=== PATIENT | female | born 1985 | race Caucasian/White ===

== ENCOUNTER 2016-09-15 13:08 | Emergency (ER) | payer OTHER ==
[2016-09-15] MEDS ORDERED: SODIUM CHLORIDE 0.9% 1,000 ML IV STA (13:32)
[2016-09-15] MEDS ORDERED: IPRATROPIUM-ALBUTEROL 3 ML NEB INHALATION STA (13:32)
[2016-09-15] MEDS ORDERED: methylPREDNISolone SOD SUCCI 125 MG/2 ML VIAL IV STA (13:32)
[2016-09-15] MEDS ORDERED: RX INFO: IV CONTRAST WAS GIVEN 1 EACH MISC MISCELLANE PRN (13:33)
--- NOTE | 2016-09-15 13:35 | ED ---
General Adult HPI - General Chief complaint: Shortness of Breath Stated complaint: ALMA Time Seen by Provider: 09/15/16 13:28 Source: patient, RN notes reviewed Mode of arrival: wheelchair Limitations: no limitations - History of Present Illness Initial comments: Patient is a pleasant 31-year-old female presenting to the emergency department with difficulty in breathing. Onset of symptoms was just a couple of days ago. Patient had similar symptoms several weeks ago and was admitted to the hospital for a couple of days. Patient has occasional cough. Patient states her hands feel tingly. Patient did have a questionable syncopal episode yesterday. Patient denies significant injury. No fevers. No history of chronic lung problems. - Related Data Home Medications Medication Instructions Recorded Confirmed Acetaminophen Tab [Tylenol Tab] 325 - 650 mg PO Q6H PRN 09/15/16 09/15/16 Ibuprofen [Motrin] 200 - 400 mg PO Q6HR PRN 09/15/16 09/15/16 Naproxen Sodium [Aleve] 220 mg PO BID PRN 09/15/16 09/15/16 Previous Rx's Medication Instructions Recorded Albuterol Inhaler [Ventolin Hfa 2 puff INHALATION Q4HR PRN #1 09/15/16 Inhaler] inhaler predniSONE 20 mg PO BID #10 tab 09/15/16 Allergies Allergy/AdvReac Type Severity Reaction Status Date / Time No Known Allergies Allergy Verified 09/15/16 13:59 Review of Systems ROS Statement: Those systems with pertinent positive or pertinent negative responses have been documented in the HPI. ROS Other: All systems not noted in ROS Statement are negative. Constitutional: Denies: fever Eyes: Denies: eye pain ENT: Denies: ear pain Respiratory: Reports: dyspnea Cardiovascular: Denies: palpitations Endocrine: Denies: fatigue Gastrointestinal: Denies: abdominal pain Genitourinary: Denies: dysuria Musculoskeletal: Denies: arthralgia Skin: Denies: rash Neurological: Denies: weakness Past Medical History Past Medical History: No Reported History Additional Past Medical History / Comment(s): 4-5 bulging disc, back pain History of Any Multi-Drug Resistant Organisms: None Reported Additional Past Surgical History / Comment(s): right knee, ACL right Past Anesthesia/Blood Transfusion Reactions: No Reported Reaction Past Psychological History: Anxiety, Depression Smoking Status: Current every day smoker Past Alcohol Use History: Rare Past Drug Use History: Marijuana - Past Family History Mother Family Medical History: Cancer, Congestive Heart Failure (CHF) General Exam Limitations: no limitations General appearance: alert, in no apparent distress Head exam: Present: atraumatic Eye exam: Present: normal appearance, PERRL ENT exam: Present: normal oropharynx Neck exam: Present: normal inspection Respiratory exam: Present: rhonchi Cardiovascular Exam: Present: regular rate, normal rhythm GI/Abdominal exam: Present: soft. Absent: tenderness Extremities exam: Present: normal inspection. Absent: pedal edema, calf tenderness Back exam: Present: normal inspection Neurological exam: Present: alert Psychiatric exam: Present: normal affect, normal mood Skin exam: Absent: rash Course Vital Signs 09/15/16 09/15/16 09/15/16 13:21 13:32 13:45 Temperature 97.4 F L Pulse Rate 101 H 87 Respiratory 24 20 Rate Blood Pressure 113/73 O2 Sat by Pulse 100 Oximetry 09/15/16 09/15/16 13:52 14:24 Temperature 98.0 F Pulse Rate 94 80 Respiratory 20 Rate Blood Pressure 108/56 O2 Sat by Pulse 96 Oximetry EKG Findings - EKG Comments: EKG Findings:: Normal sinus rhythm and 94. MS 124. QRS 102. QT 84. QTC 480. Normal axis. High QRS voltage. No acute ST change. Medical Decision Making - Medical Decision Making Patient reexamined and resting comfortably in bed. Patient feels significantly improved following nebulizer treatment. Lung sounds have improved. Patient updated on results. Patient is made aware that although unlikely pulmonary embolism has not been completely excluded. Patient does request discharge. - Lab Data Result diagrams: 09/15/16 13:55 09/15/16 13:55 Lab Results 09/15/16 09/15/16 09/15/16 Range/Units 13:55 13:55 13:55 WBC 6.2 (3.8-10.6) k/uL RBC 4.54 (3.80-5.40) m/uL Hgb 14.6 D (11.4-16.0) gm/dL Hct 42.0 (34.0-46.0) % MCV 92.4 (80.0-100.0) fL MCH 32.2 (25.0-35.0) pg MCHC 34.9 (31.0-37.0) g/dL RDW 13.4 (11.5-15.5) % Plt Count 195 (150-450) k/uL Neutrophils % 62 % Lymphocytes % 29 % Monocytes % 5 % Eosinophils % 1 % Basophils % 1 % Neutrophils # 3.8 (1.3-7.7) k/uL Lymphocytes # 1.8 (1.0-4.8) k/uL Monocytes # 0.3 (0-1.0) k/uL Eosinophils # 0.1 (0-0.7) k/uL Basophils # 0.0 (0-0.2) k/uL PT (9.0-12.0) sec INR (<1.1) APTT (22.0-30.0) sec Sodium 146 H (137-145) mmol/L Potassium 3.2 L (3.5-5.1) mmol/L Chloride 111 H (98-107) mmol/L Carbon Dioxide 20 L (22-30) mmol/L Anion Gap 15 mmol/L BUN 8 (7-17) mg/dL Creatinine 0.76 (0.52-1.04) mg/dL Est GFR (MDRD) Af Amer >60 (>60 ml/min/1.73 sqM) Est GFR (MDRD) Non-Af >60 (>60 ml/min/1.73 sqM) Glucose 81 (74-99) mg/dL Calcium 9.8 (8.4-10.2) mg/dL Magnesium 2.1 (1.6-2.3) mg/dL Total Bilirubin 0.9 (0.2-1.3) mg/dL AST 18 (14-36) U/L ALT 24 (9-52) U/L Alkaline Phosphatase 61 (38-126) U/L Total Creatine Kinase 72 (30-135) U/L CK-MB (CK-2) 0.6 (0.0-2.4) ng/mL CK-MB (CK-2) Rel Index 0.8 Troponin I <0.012 (0.000-0.034) ng/mL NT-Pro-B Natriuret Pep pg/mL Total Protein 6.7 (6.3-8.2) g/dL Albumin 4.2 (3.5-5.0) g/dL 09/15/16 09/15/16 Range/Units 13:55 13:55 WBC (3.8-10.6) k/uL RBC (3.80-5.40) m/uL Hgb (11.4-16.0) gm/dL Hct (34.0-46.0) % MCV (80.0-100.0) fL MCH (25.0-35.0) pg MCHC (31.0-37.0) g/dL RDW (11.5-15.5) % Plt Count (150-450) k/uL Neutrophils % % Lymphocytes % % Monocytes % % Eosinophils % % Basophils % % Neutrophils # (1.3-7.7) k/uL Lymphocytes # (1.0-4.8) k/uL Monocytes # (0-1.0) k/uL Eosinophils # (0-0.7) k/uL Basophils # (0-0.2) k/uL PT 11.4 (9.0-12.0) sec INR 1.1 (<1.1) APTT 25.3 (22.0-30.0) sec Sodium (137-145) mmol/L Potassium (3.5-5.1) mmol/L Chloride (98-107) mmol/L Carbon Dioxide (22-30) mmol/L Anion Gap mmol/L BUN (7-17) mg/dL Creatinine (0.52-1.04) mg/dL Est GFR (MDRD) Af Amer (>60 ml/min/1.73 sqM) Est GFR (MDRD) Non-Af (>60 ml/min/1.73 sqM) Glucose (74-99) mg/dL Calcium (8.4-10.2) mg/dL Magnesium (1.6-2.3) mg/dL Total Bilirubin (0.2-1.3) mg/dL AST (14-36) U/L ALT (9-52) U/L Alkaline Phosphatase (38-126) U/L Total Creatine Kinase (30-135) U/L CK-MB (CK-2) (0.0-2.4) ng/mL CK-MB (CK-2) Rel Index Troponin I (0.000-0.034) ng/mL NT-Pro-B Natriuret Pep 238 pg/mL Total Protein (6.3-8.2) g/dL Albumin (3.5-5.0) g/dL - Radiology Data Radiology results: report reviewed (Computed tomography scan of the chest shows no pulling embolism to the segmental level. Distal branches are not optimally assessed. Mild diffuse bronchial wall thickening could represent bronchitis or chronic asthma.) Disposition Clinical Impression: Dyspnea Disposition: HOME SELF-CARE Condition: Stable Instructions: Asthma (ED), Bronchospasm (ED) Additional Instructions: Please follow-up with primary care physician tomorrow. Return for difficulty breathing, chest pain, fever, worsening symptoms or other concerns. Prescriptions: Albuterol Inhaler [Ventolin Hfa Inhaler] 2 puff INHALATION Q4HR PRN #1 inhaler PRN Reason: Dyspnea predniSONE 20 mg PO BID #10 tab Referrals: None,Stated [Primary Care Provider] - 1-2 days Jeni Casarez MD [STAFF PHYSICIAN] - 1-2 days Mariposa Morris MD [STAFF PHYSICIAN] - 1-2 days
[2016-09-15 14:13] LABS: Basophils % (A) 1 %; CH 32.8; CHCM 35.6; Eosinophils # (A) 0.1 k/uL (0-0.7); Eosinophils % (A) 1 %; HDW 2.51; Luc % (Auto) 2; Lymphocytes # (A) 1.8 k/uL (1.0-4.8); Lymphocytes % (A) 29 %; MCH 32.2 pg (25.0-35.0); MCHC 34.9 g/dL (31.0-37.0); MCV 92.4 fL (80.0-100.0); Mean Platelet Volume 6.8; Monocytes # (A) 0.3 k/uL (0-1.0); Monocytes % (A) 5 %; Neutrophils # (A) 3.8 k/uL (1.3-7.7); Neutrophils % (A) 62 %; RBC 4.54 m/uL (3.80-5.40); RDW 13.4 % (11.5-15.5); WBC 6.2 k/uL (3.8-10.6); WBC (Perox) 6.43
[2016-09-15 14:17] LABS: HGB 14.6 gm/dL (11.4-16.0)
[2016-09-15 14:23] LABS: INR 1.1 (<1.1); Partial Thromboplastin Time 25.3 sec (22.0-30.0); Prothrombin Time 11.4 sec (9.0-12.0)
[2016-09-15 14:26] LABS: ALT 24 U/L (9-52); AST 18 U/L (14-36); Alkaline Phosphatase 61 U/L (38-126); Anion Gap 15 mmol/L; Blood Urea Nitrogen 8 mg/dL (7-17); Calcium 9.8 mg/dL (8.4-10.2); Carbon Dioxide 20 mmol/L (22-30); Chloride 111 mmol/L (98-107); Glucose 81 mg/dL (74-99); Magnesium 2.1 mg/dL (1.6-2.3); Non-African American GFR(MDRD) >60 (>60 ml/min/1.73 sqM); Potassium 3.2 mmol/L (3.5-5.1); Sodium 146 mmol/L (137-145); Total Bilirubin 0.9 mg/dL (0.2-1.3); Total Protein 6.7 g/dL (6.3-8.2)
[2016-09-15 14:40] LABS: Creatine Kinase 72 U/L (30-135)
[2016-09-15 14:53] LABS: Creatine Kinase MB 0.6 ng/mL (0.0-2.4); Troponin I <0.012 ng/mL (0.000-0.034)
--- NOTE | 2016-09-15 15:15 | CT ---
EXAMINATION TYPE: CT angio chest DATE OF EXAM: 09/15/2016 2:53 PM COMPARISON: 08/07/2016 HISTORY: 31-year-old female difficulty in breathing CT DLP: 446 mGycm Automated exposure control for dose reduction was used. Technique: CT of the chest for pulmonary embolism performed with with IV Contrast, patient injected w ith 100 ml mL of Omnipaque 350. Coronal and sagittal MIP reconstructions performed. FINDINGS: The heart is normal size without pericardial effusion. Aorta is normal caliber with conventional branching anatomy. Satisfactory opacification of the pulmonary arterial system. There is mild respiratory motion that ca uses limitation in assessment of the subsegmental and more distal arterial branches. Otherwise, no de finite pulmonary embolus is seen. No thoracic lymphadenopathy. Mild diffuse bronchial wall thickening is noted. No consolidation or pleural effusion. Respiratory mo tion limits assessment for small pulmonary emboli. Bones: No osseous destructive process. IMPRESSION: 1. Respiratory motion causing limitations. No pulmonary embolus seen to the segmental level. More dis alcira arterial branches are not optimally assessed. 2. Mild diffuse bronchial wall thickening could represent bronchitis or chronic asthma.
[2016-09-15] MEDS ORDERED: DEXAMETHASONE SOD PHOSPHATE 10 MG/ML 1 ML VIAL IV STA (16:07)
[2016-09-15 16:45] VITALS: BP 129/77; PULSE 77; RESP 18; TEMP 98.4
== END 2016-09-15 16:44 | disposition home or self-care (01) ==
LOC: EC 13:08
DX: R06.00 Dyspnea, unspecified (principal); F17.200 Nicotine dependence, unspecified, uncomplicated
CPT/HCPCS: 99285; 96374; 96361 ×2; 36415; 94640; 93005; 83880; 80053; 82550; 82553; 83735; 84484; 85025; 85610; 85730; 71275; J2930; Q9967

== ENCOUNTER 2017-11-23 12:27 | Emergency (ER) | payer OTHER ==
--- NOTE | 2017-11-23 14:32 | ED ---
Female Urogenital HPI - General Chief complaint: Urogenital Stated complaint: Urogenital Time Seen by Provider: 11/23/17 13:27 Source: patient, RN notes reviewed Mode of arrival: ambulatory Limitations: no limitations - History of Present Illness Initial comments: This is a 32-year-old female who presents to the emergency department with chief complaint of vaginal cyst. Patient states that she developed a cyst on the left side of her genitalia last evening and it was very uncomfortable. She states that the pain has progressively worsened this morning. Patient states that she does not have a primary care provider or an RESEARCH AND DEVELOPMENT SCIENTIST. Denies any active drainage. Denies any bleeding. Denies any history of trauma to the area. Denies fever, chills, chest pain, shortness of breath, abdominal pain, nausea or vomiting, constipation or diarrhea, dysuria or hematuria, numbness or tingling, headache or vision changes. Last Menstrual Period: 11/19/17 - Related Data Home Medications Medication Instructions Recorded Confirmed Acetaminophen Tab [Tylenol Tab] 1,000 mg PO Q6HR PRN 11/23/17 11/23/17 Ibuprofen [Motrin] 800 mg PO Q6H PRN 11/23/17 11/23/17 Previous Rx's Medication Instructions Recorded Hydrocodone/Acetaminophen [[place] 1 tab PO Q4HR PRN #12 tab 11/23/17 5-325] Ibuprofen 600 mg PO Q6HR #20 tablet 11/23/17 Sulfamethox-Tmp 800-160Mg [Bactrim 1 tab PO Q12HR #20 tab 11/23/17 DS 800-160 mg] Allergies Allergy/AdvReac Type Severity Reaction Status Date / Time No Known Allergies Allergy Verified 11/23/17 13:08 Review of Systems ROS Statement: Those systems with pertinent positive or pertinent negative responses have been documented in the HPI. ROS Other: All systems not noted in ROS Statement are negative. Past Medical History Past Medical History: No Reported History Additional Past Medical History / Comment(s): 4-5 bulging disc, back pain History of Any Multi-Drug Resistant Organisms: None Reported Past Surgical History: Orthopedic Surgery Additional Past Surgical History / Comment(s): right knee, ACL right Past Anesthesia/Blood Transfusion Reactions: No Reported Reaction Past Psychological History: Anxiety, Depression Smoking Status: Current every day smoker Past Alcohol Use History: None Reported Past Drug Use History: None Reported, Marijuana - Past Family History Mother Family Medical History: Cancer, Congestive Heart Failure (CHF) General Exam - General Exam Comments Initial Comments: General: Awake and alert, well-developed; in no apparent distress. HEENT: Head atraumatic, normocephalic. Pupils are equal, round and reactive to light. Extraocular movements intact. Oropharynx moist without erythema or exudate. Neck: Supple. Normal ROM. Cardiovascular: Regular rate and rhythm. No murmurs, rubs or gallops. Chest symmetrical. Respiratory: Lungs clear to auscultation bilaterally. No wheezes, rales or rhonchi. Normal respiratory effort with no use of accessory muscles. Musculoskeletal: Normal ROM, no tenderness bilateral upper and lower extremities. Ambulating normally. Skin: [place], warm and dry without rashes or lesions. Neurological: Alert and oriented x3. CN II-XII grossly intact. Speech is fluent and answers are appropriate. No focal neuro deficits. Psychiatric: Normal mood and affect. No overt signs of depression or anxiety noted. Limitations: no limitations External exam: Present: other (approximately 1.5cm in diameter bartholin cyst left labia majora) Course Vital Signs 11/23/17 12:56 Temperature 98.9 F Pulse Rate 95 Respiratory 18 Rate Blood Pressure 142/99 O2 Sat by Pulse 100 Oximetry Medical Decision Making - Medical Decision Making This is a 32-year-old female who presents to emergency department with chief complaint of vaginal cyst. Patient does have a Bartholin's gland cyst at left labia. I discussed the case with fellow physician catering assistant, Jones who also evaluated the patient. The cyst is not large enough to drain or insert a bulb. Patient will be started on pain medication, anti-inflammatories and antibiotics. Recommended warm baths and hot compresses. Patient will be given follow-up to a primary care provider as well as an RESEARCH AND DEVELOPMENT SCIENTIST. Patient's vital signs are stable and she is in no acute distress. She will be discharged home. She is in agreement with plan and voices understanding. All questions were answered. Disposition Clinical Impression: Cyst of Bartholin's gland duct Disposition: HOME SELF-CARE Condition: Good Instructions: Bartholin Cyst (ED) Additional Instructions: Please follow-up with Dr. Pagan, RESEARCH AND DEVELOPMENT SCIENTIST or Dr. Morris, primary care provider within 1-2 days. Please take warm baths and use hot compresses. Please take medications as prescribed. Please return to the emergency department if any concerns arise or you experience worsening in symptoms. Prescriptions: Hydrocodone/Acetaminophen [[place] 5-325] 1 tab PO Q4HR PRN #12 tab PRN Reason: Pain Ibuprofen 600 mg PO Q6HR #20 tablet Sulfamethox-Tmp 800-160Mg [Bactrim DS 800-160 mg] 1 tab PO Q12HR #20 tab Referrals: None,Stated [Primary Care Provider] - 1-2 days Amanda Pagan MD [STAFF PHYSICIAN] - 1-2 days Mariposa Morris MD [STAFF PHYSICIAN] - 1-2 days Time of Disposition: 14:31
[2017-11-23 14:40] VITALS: BP 126/84; PULSE 74; RESP 16; TEMP 97.5
== END 2017-11-23 14:38 | disposition home or self-care (01) ==
LOC: EC 12:27
DX: N75.0 Cyst of Bartholin's gland (principal); F17.200 Nicotine dependence, unspecified, uncomplicated
CPT/HCPCS: 99282

== ENCOUNTER 2017-11-25 09:17 | Emergency (ER) | payer OTHER ==
[2017-11-25 09:47] VITALS: RESP 18
--- NOTE | 2017-11-25 11:17 | ED ---
General Adult HPI - General Chief complaint: Urogenital Stated complaint: Cyst Source: patient, RN notes reviewed Mode of arrival: ambulatory Limitations: no limitations - History of Present Illness Initial comments: This is a 32-year-old female who presents emergency Department complaining of having a cyst on the labia. Patient states she was seen in emergency department a few days ago and since gotten severely worse even though she's on antibiotics. Patient states the areas become more swollen and more tender and she does not have a primary medical care doctor or a MOVEMENT EDUCATION SPECIALIST. Patient denies any fever chills patient denies any drainage of the area. - Related Data Home Medications Medication Instructions Recorded Confirmed Acetaminophen Tab [Tylenol Tab] 1,000 mg PO Q6HR PRN 11/23/17 11/25/17 Ibuprofen [Motrin] 800 mg PO Q6H PRN 11/23/17 11/25/17 Previous Rx's Medication Instructions Recorded Hydrocodone/Acetaminophen [[place] 1 tab PO Q4HR PRN #12 tab 11/23/17 5-325] Ibuprofen 600 mg PO Q6HR #20 tablet 11/23/17 Sulfamethox-Tmp 800-160Mg [Bactrim 1 tab PO Q12HR #20 tab 11/23/17 DS 800-160 mg] Hydrocodone/Acetaminophen [[place] 1 each PO Q4HR PRN #10 tab 11/25/17 5-325] Ibuprofen [Motrin] 600 mg PO Q6HR PRN #20 tab 11/25/17 Allergies Allergy/AdvReac Type Severity Reaction Status Date / Time No Known Allergies Allergy Verified 11/25/17 10:28 Review of Systems ROS Statement: Those systems with pertinent positive or pertinent negative responses have been documented in the HPI. ROS Other: All systems not noted in ROS Statement are negative. Past Medical History Past Medical History: No Reported History Additional Past Medical History / Comment(s): 4-5 bulging disc, back pain History of Any Multi-Drug Resistant Organisms: None Reported Past Surgical History: Orthopedic Surgery Additional Past Surgical History / Comment(s): right knee, ACL right Past Anesthesia/Blood Transfusion Reactions: No Reported Reaction Past Psychological History: Anxiety, Depression Smoking Status: Current every day smoker Past Alcohol Use History: None Reported Past Drug Use History: None Reported, Marijuana - Past Family History Mother Family Medical History: Cancer, Congestive Heart Failure (CHF) General Exam - General Exam Comments Initial Comments: GENERAL Patient is well-developed and well-nourished. Patient is in mild distress. EYES Patient's pupils are equal and round. Extraocular motion is intact SKIN Unremarkable NEURO The patient is alert and oriented 3 PYSCH Patient has normal interpersonal interactions. MUSCULOSKELETAL All 4 times and full range of motion. GENITALIA Patient has a Bartholin's cyst Limitations: no limitations Course Vital Signs 11/25/17 09:44 Temperature 98.6 F Pulse Rate 97 Respiratory 18 Rate Blood Pressure 130/91 O2 Sat by Pulse 100 Oximetry Procedures - Incision & Drainage Consent Obtained: verbal consent Time Out Performed?: Yes Site: vulva/vagina Anesthetic Used: lidocaine 1% I&D Cleaning Method: Betadine Scalpel Used: #15 I&D Drainage Obtained: Pus Culture Obtained?: Yes Complications: pain, bleeding Patient Tolerated Procedure: well Medical Decision Making - Lab Data Lab Results 11/25/17 Range/Units 11:18 Urine Color Yellow Urine Appearance Clear (Clear) Urine pH 6.5 (5.0-8.0) Ur Specific [place] 1.032 (1.001-1.035) Urine Protein 1+ H (Negative) Urine Glucose (UA) Negative (Negative) Urine Ketones Negative (Negative) Urine Blood Negative (Negative) Urine Nitrite Negative (Negative) Urine Bilirubin Negative (Negative) Urine Urobilinogen 2.0 (<2.0) mg/dL Ur Leukocyte Esterase Negative (Negative) Urine RBC <1 (0-5) /hpf Urine WBC 1 (0-5) /hpf Ur Squamous Epith Cells 7 H (0-4) /hpf Urine Mucus Rare H (None) /hpf Disposition Clinical Impression: Cyst of Bartholin's gland duct Disposition: HOME SELF-CARE Condition: Good Instructions: Incision and Drainage (ED) Prescriptions: Hydrocodone/Acetaminophen [[place] 5-325] 1 each PO Q4HR PRN #10 tab PRN Reason: Pain Ibuprofen [Motrin] 600 mg PO Q6HR PRN #20 tab PRN Reason: For pain Referrals: None,Stated [Primary Care Provider] - 1-2 days Sav Ervin MD [STAFF PHYSICIAN] - 1-2 days Time of Disposition: 12:08
[2017-11-25 11:51] LABS: Appearance,Urine Clear (Clear); Bilirubin,Urine Negative (Negative); Blood,Urine Negative (Negative); Color,Urine Yellow; Glucose,Urine (UA) Negative (Negative); Ketones,Urine Negative (Negative); Leukocyte Esterase,Urine Negative (Negative); Mucus,Urine Rare /hpf; Nitrite,Urine Negative (Negative); PH, Urine 6.5 (5.0-8.0); Protein,Urine 1+ (Negative); RBC,Urine <1 /hpf (0-5); Specific Gravity,Urine 1.032 (1.001-1.035); Squamous Epithelial Cell,Urine 7 /hpf (0-4); WBC,Urine 1 /hpf (0-5)
[2017-11-25] MEDS ORDERED: cefTRIAXone 1,000 MG VIAL (IM USE) IM STA (12:05)
[2017-11-25 12:28] VITALS: BP 132/67; PULSE 79; TEMP 98
[2017-11-26 16:24] LABS: C. trachomatis,PCR Negative (Neg,Equiv); Chlamydia trachomatis Source Urine; N. gonorrhoeae,PCR Negative (Neg,Equiv); Neisseria Source Urine
== END 2017-11-25 12:29 | disposition home or self-care (01) ==
LOC: EC 09:17
DX: N75.0 Cyst of Bartholin's gland (principal); F17.200 Nicotine dependence, unspecified, uncomplicated
CPT/HCPCS: 96372; 99283; 56405; 81001; 87491; 87591; J0696

== ENCOUNTER 2018-01-13 19:15 | Emergency (ER) | payer OTHER ==
[2018-01-13] MEDS ORDERED: diphenhydrAMINE 50 MG/ML 1 ML VIAL IVP STA (20:14)
[2018-01-13] MEDS ORDERED: SODIUM CHLORIDE 0.9% 1,000 ML IV STA (20:14)
[2018-01-13] MEDS ORDERED: METOCLOPRAMIDE 5 MG/ML 2 ML VIAL IVP STA (20:14)
[2018-01-13] MEDS ORDERED: KETOROLAC 30 MG/ML 1 ML VIAL IVP STA (20:14)
--- NOTE | 2018-01-13 20:16 | ED ---
General Adult HPI - General Chief complaint: Headache Stated complaint: migraine Time Seen by Provider: 01/13/18 20:08 Source: patient, RN notes reviewed Mode of arrival: ambulatory Limitations: no limitations - History of Present Illness Initial comments: Patient 32-year-old female significant past medical history for migraines, presented to the emergency room today with a chief complaint of migraine headache that started late last night. She states she struck medication at home with little relief. Patient does meet photosensitivity. She does admit to sensitivity to sounds. She states that she's had some nausea and vomiting. She states the headache is located all over. Describes it as pressure. She is only symptoms are consistent with migraine headaches that she's had in the past. Patient denies any recent fever, chills, shortness of breath, chest pain, back pain, numbness or tingling, dysuria or hematuria, constipation or diarrhea , or any other complaints. - Related Data Home Medications Medication Instructions Recorded Confirmed Butalbital/Aspirin/Caffeine 1 cap PO Q4HR PRN 01/13/18 01/13/18 [Fiorinal 50-325-40 MG] Hydrocodone/Acetaminophen [[place] 1 tab PO BID PRN 01/13/18 01/13/18 5-325] Multivitamins, Thera [Multivitamin 1 tab PO DAILY 01/13/18 01/13/18 (formulary)] Allergies Allergy/AdvReac Type Severity Reaction Status Date / Time No Known Allergies Allergy Verified 01/13/18 20:23 Review of Systems ROS Statement: Those systems with pertinent positive or pertinent negative responses have been documented in the HPI. ROS Other: All systems not noted in ROS Statement are negative. Past Medical History Past Medical History: No Reported History Additional Past Medical History / Comment(s): 4-5 bulging disc, back pain, migraines History of Any Multi-Drug Resistant Organisms: None Reported Past Surgical History: Orthopedic Surgery Additional Past Surgical History / Comment(s): right knee, ACL right Past Anesthesia/Blood Transfusion Reactions: No Reported Reaction Past Psychological History: Anxiety, Depression Smoking Status: Current every day smoker Past Alcohol Use History: None Reported Past Drug Use History: None Reported, Marijuana - Past Family History Mother Family Medical History: Cancer, Congestive Heart Failure (CHF) General Exam - General Exam Comments Initial Comments: General: The patient is awake and alert, in no distress, and does not appear acutely ill. Eye: Pupils are equal, round and reactive to light, extra-ocular movements are intact. No nystagmus. There is normal conjunctiva bilaterally. No signs of icterus. Ears, nose, mouth and throat: There are moist mucous membranes and no oral lesions. Neck: The neck is supple, there is no tenderness or JVD. Cardiovascular: There is a regular rate and rhythm. No murmur, rub or gallop is appreciated. Respiratory: Lungs are clear to auscultation, respirations are non-labored, breath sounds are equal. No wheezes, stridor, rales, or rhonchi. Musculoskeletal: Normal ROM, no tenderness. Strength 5/5. Sensation intact. Pulses equal bilaterally 2+. Neurological: A&O x 3. CN II-XII intact, There are no obvious motor or sensory deficits. Coordination appears grossly intact. Speech is normal. Skin: Skin is warm and dry and no rashes or lesions are noted. Psychiatric: Cooperative, appropriate mood & affect, normal judgment. Limitations: no limitations Course Vital Signs 01/13/18 19:57 Temperature 98.3 F Pulse Rate 85 Respiratory 18 Rate Blood Pressure 140/86 O2 Sat by Pulse 98 Oximetry Medical Decision Making - Medical Decision Making Patient reexamined at this time shows no signs of distress. Patient does admit that she's feeling better after medications of Reglan, Benadryl, Toradol here in emergency room. She states her headache is gone. Patient will be discharged home. Disposition Clinical Impression: Migraine Disposition: HOME SELF-CARE Condition: Good Instructions: Migraine Headache (ED) Additional Instructions: Please use ibuprofen for any rebound headaches. Please follow-up with family doctor in the next 2 days of symptoms have not improved. Please return to emergency room if the symptoms increase or worsen or for any other concerns. Is patient prescribed a controlled substance at d/c from ED?: No Referrals: None,Stated [Primary Care Provider] - 1-2 days Time of Disposition: 21:56
[2018-01-13 22:19] VITALS: BP 132/71; PULSE 69; RESP 16; TEMP 98.1
== END 2018-01-13 22:19 | disposition home or self-care (01) ==
LOC: EC 19:15
DX: G43.909 Migraine, unspecified, not intractable, without status migrainosus (principal); F17.200 Nicotine dependence, unspecified, uncomplicated
CPT/HCPCS: 99283; 96374; 96375 ×2; 96361; J1200; J2765; J1885

== ENCOUNTER 2018-03-04 08:55 | Emergency (ER) | payer OTHER ==
[2018-03-04 09:03] VITALS: RESP 18; TEMP 98.2
[2018-03-04 09:33] LABS: Basophils # (A) 0.1 k/uL (0-0.2); Basophils % (A) 1 %; Eosinophils # (A) 0.1 k/uL (0-0.7); Eosinophils % (A) 1 %; HCT 43.7 % (34.0-46.0); HGB 14.9 gm/dL (11.4-16.0); Lymphocytes # (A) 1.4 k/uL (1.0-4.8); Lymphocytes % (A) 20 %; MCH 31.4 pg (25.0-35.0); MCHC 34.1 g/dL (31.0-37.0); Monocytes # (A) 0.3 k/uL (0-1.0); Monocytes % (A) 5 %; Neutrophils # (A) 5.1 k/uL (1.3-7.7); Neutrophils % (A) 73 %; Platelet Count 209 k/uL (150-450); RBC 4.75 m/uL (3.80-5.40); RDW 12.8 % (11.5-15.5); WBC 7.1 k/uL (3.8-10.6)
[2018-03-04 09:45] LABS: Appearance,Urine Clear (Clear); Bilirubin,Urine Negative (Negative); Blood,Urine Small (Negative); Color,Urine Light Yellow; Glucose,Urine (UA) Negative (Negative); Ketones,Urine Negative (Negative); Leukocyte Esterase,Urine Negative (Negative); Mucus,Urine Rare /hpf; Nitrite,Urine Negative (Negative); PH, Urine 7.5 (5.0-8.0); Protein,Urine Negative (Negative); RBC,Urine 1 /hpf (0-5); Specific Gravity,Urine 1.005 (1.001-1.035); Squamous Epithelial Cell,Urine 1 /hpf (0-4); Urobilinogen,Urine <2.0 mg/dL (<2.0); WBC,Urine 1 /hpf (0-5)
[2018-03-04] MEDS ORDERED: ONDANSETRON 4 MG/2 ML VIAL IVP STA (09:51)
[2018-03-04] MEDS ORDERED: KETOROLAC 30 MG/ML 1 ML VIAL IVP STA (09:51)
[2018-03-04 09:52] LABS: ALT 25 U/L (9-52); AST 22 U/L (14-36); Albumin 4.6 g/dL (3.5-5.0); Alkaline Phosphatase 58 U/L (38-126); Amylase 58 U/L (30-110); Anion Gap 12 mmol/L; Blood Urea Nitrogen 3 mg/dL (7-17); Calcium 9.5 mg/dL (8.4-10.2); Carbon Dioxide 25 mmol/L (22-30); Chloride 105 mmol/L (98-107); Glucose 95 mg/dL (74-99); Lipase 38 U/L (23-300); Potassium 3.9 mmol/L (3.5-5.1); Sodium 142 mmol/L (137-145); Total Bilirubin 0.4 mg/dL (0.2-1.3); Total Protein 6.8 g/dL (6.3-8.2)
--- NOTE | 2018-03-04 10:44 | US ---
EXAMINATION TYPE: US gallbladder DATE OF EXAM: 03/04/2018 COMPARISON: NONE CLINICAL HISTORY: Pain. EXAM MEASUREMENTS: Liver Length: 16.2 cm Gallbladder Wall: 0.2 cm CBD: 0.3 cm Right Kidney: 9.8 x 4.4 x 5.6 cm Pancreas: not well delineated Liver: wnl Gallbladder: wnl Evidence for sonographic Ortega's sign: no CBD: wnl Right Kidney: No hydronephrosis or masses seen IMPRESSION: No sonographic evidence of cholelithiasis or acute cholecystitis. Poor visualization of t he pancreas.
[2018-03-04] MEDS ORDERED: MORPHINE SULFATE 2 MG/ML SYRINGE IVP STA (10:55)
--- NOTE | 2018-03-04 12:03 | ED ---
Abdominal Pain HPI - General Chief Complaint: Abdominal Pain Stated Complaint: abd pain Time Seen by Provider: 03/04/18 09:03 Source: patient, RN notes reviewed Mode of arrival: wheelchair Limitations: no limitations - History of Present Illness Initial Comments: This a 32-year-old female presents to the emergency department with chief complaint of abdominal pain, nausea. Patient states pain started in her midabdomen but has radiated to her right upper quadrant into her back. Patient states that she has no chest pain or shortness of breath. Denies any shoulder pain. Patient has had no prior abdominal surgeries. Denies any dysuria, hematuria or any chance . Patient had no diarrhea no constipation. She states nothing makes the pain feel better or worse at this time. - Related Data Home Medications Medication Instructions Recorded Confirmed Hydrocodone/Acetaminophen [[place] 1 tab PO BID PRN 01/13/18 03/04/18 5-325] Previous Rx's Medication Instructions Recorded Ibuprofen [Motrin] 600 mg PO Q8HR PRN #30 tab 03/04/18 Ondansetron Odt [Zofran Odt] 4 mg PO Q8HR PRN #10 tab 03/04/18 Allergies Allergy/AdvReac Type Severity Reaction Status Date / Time No Known Allergies Allergy Verified 03/04/18 09:35 Review of Systems ROS Statement: Those systems with pertinent positive or pertinent negative responses have been documented in the HPI. ROS Other: All systems not noted in ROS Statement are negative. Past Medical History Past Medical History: No Reported History Additional Past Medical History / Comment(s): 4-5 bulging disc, back pain, migraines History of Any Multi-Drug Resistant Organisms: None Reported Past Surgical History: Orthopedic Surgery Additional Past Surgical History / Comment(s): right knee, ACL right Past Anesthesia/Blood Transfusion Reactions: No Reported Reaction Past Psychological History: Anxiety, Depression Smoking Status: Current every day smoker Past Alcohol Use History: None Reported Past Drug Use History: None Reported, Marijuana - Past Family History Mother Family Medical History: Cancer, Congestive Heart Failure (CHF) General Exam Limitations: no limitations General appearance: alert, in no apparent distress Head exam: Present: atraumatic, normocephalic, normal inspection Neck exam: Present: normal inspection. Absent: tenderness, meningismus, lymphadenopathy Respiratory exam: Present: normal lung sounds bilaterally. Absent: respiratory distress, wheezes, rales, rhonchi, stridor Cardiovascular Exam: Present: regular rate, normal rhythm, normal heart sounds. Absent: systolic murmur, diastolic murmur, rubs, gallop, clicks GI/Abdominal exam: Present: soft, tenderness (Moderate right upper quadrant), normal bowel sounds. Absent: distended, guarding, rebound, rigid Back exam: Present: CVA tenderness (R). Absent: CVA tenderness (L) Neurological exam: Present: alert, oriented X3, CN II-XII intact Course Vital Signs 03/04/18 09:02 Temperature 98.2 F Pulse Rate 103 H Respiratory 18 Rate Blood Pressure 141/100 O2 Sat by Pulse 99 Oximetry Medical Decision Making - Medical Decision Making 32-year-old female presents for abdominal pain. Patient states pain started earlier this morning and is progressive right upper quadrant pain. Patient had lab work, ultrasound and CT which unremarkable. Patient will follow-up with on- call surgery return parameters discussed. - Lab Data Result diagrams: 03/04/18 09:24 03/04/18 09:24 Lab Results 03/04/18 03/04/18 03/04/18 Range/Units 09:24 09:24 09:24 WBC 7.1 (3.8-10.6) k/uL RBC 4.75 (3.80-5.40) m/uL Hgb 14.9 (11.4-16.0) gm/dL Hct 43.7 (34.0-46.0) % MCV 92.0 (80.0-100.0) fL MCH 31.4 (25.0-35.0) pg MCHC 34.1 (31.0-37.0) g/dL RDW 12.8 (11.5-15.5) % Plt Count 209 (150-450) k/uL Neutrophils % 73 % Lymphocytes % 20 % Monocytes % 5 % Eosinophils % 1 % Basophils % 1 % Neutrophils # 5.1 (1.3-7.7) k/uL Lymphocytes # 1.4 (1.0-4.8) k/uL Monocytes # 0.3 (0-1.0) k/uL Eosinophils # 0.1 (0-0.7) k/uL Basophils # 0.1 (0-0.2) k/uL Sodium 142 (137-145) mmol/L Potassium 3.9 (3.5-5.1) mmol/L Chloride 105 (98-107) mmol/L Carbon Dioxide 25 (22-30) mmol/L Anion Gap 12 mmol/L BUN 3 L (7-17) mg/dL Creatinine 0.77 (0.52-1.04) mg/dL Est GFR (CKD-EPI)AfAm >90 (>60 ml/min/1.73 sqM) Est GFR (CKD-EPI)NonAf >90 (>60 ml/min/1.73 sqM) Glucose 95 (74-99) mg/dL Calcium 9.5 (8.4-10.2) mg/dL Total Bilirubin 0.4 (0.2-1.3) mg/dL AST 22 (14-36) U/L ALT 25 (9-52) U/L Alkaline Phosphatase 58 (38-126) U/L Total Protein 6.8 (6.3-8.2) g/dL Albumin 4.6 (3.5-5.0) g/dL Amylase 58 (30-110) U/L Lipase 38 (23-300) U/L Urine Color Urine Appearance (Clear) Urine pH (5.0-8.0) Ur Specific [place] (1.001-1.035) Urine Protein (Negative) Urine Glucose (UA) (Negative) Urine Ketones (Negative) Urine Blood (Negative) Urine Nitrite (Negative) Urine Bilirubin (Negative) Urine Urobilinogen (<2.0) mg/dL Ur Leukocyte Esterase (Negative) Urine RBC (0-5) /hpf Urine WBC (0-5) /hpf Ur Squamous Epith Cells (0-4) /hpf Urine Mucus (None) /hpf Urine HCG, Qual Not Detected (Not Detectd) 03/04/18 Range/Units 09:24 WBC (3.8-10.6) k/uL RBC (3.80-5.40) m/uL Hgb (11.4-16.0) gm/dL Hct (34.0-46.0) % MCV (80.0-100.0) fL MCH (25.0-35.0) pg MCHC (31.0-37.0) g/dL RDW (11.5-15.5) % Plt Count (150-450) k/uL Neutrophils % % Lymphocytes % % Monocytes % % Eosinophils % % Basophils % % Neutrophils # (1.3-7.7) k/uL Lymphocytes # (1.0-4.8) k/uL Monocytes # (0-1.0) k/uL Eosinophils # (0-0.7) k/uL Basophils # (0-0.2) k/uL Sodium (137-145) mmol/L Potassium (3.5-5.1) mmol/L Chloride (98-107) mmol/L Carbon Dioxide (22-30) mmol/L Anion Gap mmol/L BUN (7-17) mg/dL Creatinine (0.52-1.04) mg/dL Est GFR (CKD-EPI)AfAm (>60 ml/min/1.73 sqM) Est GFR (CKD-EPI)NonAf (>60 ml/min/1.73 sqM) Glucose (74-99) mg/dL Calcium (8.4-10.2) mg/dL Total Bilirubin (0.2-1.3) mg/dL AST (14-36) U/L ALT (9-52) U/L Alkaline Phosphatase (38-126) U/L Total Protein (6.3-8.2) g/dL Albumin (3.5-5.0) g/dL Amylase (30-110) U/L Lipase (23-300) U/L Urine Color Light Yellow Urine Appearance Clear (Clear) Urine pH 7.5 (5.0-8.0) Ur Specific [place] 1.005 (1.001-1.035) Urine Protein Negative (Negative) Urine Glucose (UA) Negative (Negative) Urine Ketones Negative (Negative) Urine Blood Small H (Negative) Urine Nitrite Negative (Negative) Urine Bilirubin Negative (Negative) Urine Urobilinogen <2.0 (<2.0) mg/dL Ur Leukocyte Esterase Negative (Negative) Urine RBC 1 (0-5) /hpf Urine WBC 1 (0-5) /hpf Ur Squamous Epith Cells 1 (0-4) /hpf Urine Mucus Rare H (None) /hpf Urine HCG, Qual (Not Detectd) Disposition Clinical Impression: Abdominal pain Disposition: HOME SELF-CARE Condition: Stable Instructions: Abdominal Pain (ED) Additional Instructions: Please return to the Emergency Department if symptoms worsen or any other concerns. Prescriptions: Ibuprofen [Motrin] 600 mg PO Q8HR PRN #30 tab PRN Reason: Pain Ondansetron Odt [Zofran Odt] 4 mg PO Q8HR PRN #10 tab PRN Reason: Nausea Is patient prescribed a controlled substance at d/c from ED?: No Referrals: None,Stated [Primary Care Provider] - 1-2 days Kevin Thomas DO [Doctor of Osteopathic Medicine] - 1-2 days Time of Disposition: 12:27
--- NOTE | 2018-03-04 12:09 | CT ---
EXAMINATION TYPE: CT abdomen pelvis w con DATE OF EXAM: 03/04/2018 COMPARISON: NONE INDICATION: RUQ pain, radiating around back DLP: 931 mGycm, Automated exposure control for dose reduction was used. CONTRAST: 100 mL of Isovue 300. Study performed without Oral Contrast TECHNIQUE: Axial images were obtained from above the diaphragm to the pubic rami in the axial plane a t 5 mm thick sections. Reconstructed images are reviewed on the computer in the coronal plane. FINDINGS: Limited CT sections are obtained the lung bases. The lung bases are clear. CT ABDOMEN: Liver: Normal Spleen: Normal Pancreas: Normal Adrenal glands: The adrenal glands are normal. Gallbladder: Normal Kidneys: No masses are evident. No hydronephrosis is present. No cysts are present. Delayed images were obtained through the kidneys, which remain unremarkable. Aorta: Normal Inferior vena cava: Normal. CT PELVIS: Loops of bowel within the abdomen and pelvis are normal. Study is performed without oral contrast limiting the evaluation. Appendix: Normal as visualized. Urinary bladder: Normal. Genitourinary structures: Uterus is normal. Adnexal regions are clear. Minimal free fluid is in the p etsrada. This could be physiologic. Osseous structures: No suspicious lytic or sclerotic lesions. IMPRESSIONS: 1. Normal CT abdomen and pelvis 2. Normal appendix
[2018-03-04 12:44] VITALS: BP 148/97; PULSE 80
== END 2018-03-04 12:42 | disposition home or self-care (01) ==
LOC: EC 08:55
DX: R10.11 Right upper quadrant pain (principal); M54.9 Dorsalgia, unspecified; R11.0 Nausea; F17.200 Nicotine dependence, unspecified, uncomplicated
CPT/HCPCS: 36415; 80053; 82150; 83690; 85025; 81001; 81025; 76705; 74177; 99284; 96374; 96375 ×2; J2405; J1885; J2270; Q9967

== ENCOUNTER 2018-03-17 19:12 | Emergency (ER) | payer SELFPAY ==
[2018-03-17 19:24] VITALS: RESP 16
--- NOTE | 2018-03-17 20:03 | ED ---
General Adult HPI - General Chief complaint: Skin/Abscess/Foreign Body Stated complaint: Insect bite Time Seen by Provider: 03/17/18 19:25 Source: patient, RN notes reviewed Mode of arrival: ambulatory Limitations: no limitations - History of Present Illness Initial comments: 32-year-old female presents to the emergency department for a chief complaint of bug bite times one day. Patient states she noticed the bite this morning. Patient states it was a blister that has since popped. Patient states there was a red ring around the bug bite earlier in the day but that has since resolved. Patient denies any fevers or chills at home. Patient denies any abdominal pain, joint pain, myalgias, fatigue. Patient has no other complaints at this time including shortness of breath, chest pain, abdominal pain, nausea or vomiting, headache, or visual changes. - Related Data Home Medications Medication Instructions Recorded Confirmed Hydrocodone/Acetaminophen [[place] 1 tab PO BID PRN 01/13/18 03/04/18 5-325] Previous Rx's Medication Instructions Recorded Ibuprofen [Motrin] 600 mg PO Q8HR PRN #30 tab 03/04/18 Ondansetron Odt [Zofran Odt] 4 mg PO Q8HR PRN #10 tab 03/04/18 Amoxicillin 500 mg PO Q8H 14 Days #42 capsule 03/17/18 diphenhydrAMINE [Benadryl] 25 mg PO QID PRN #20 capsule 03/17/18 Allergies Allergy/AdvReac Type Severity Reaction Status Date / Time No Known Allergies Allergy Verified 03/17/18 19:23 Review of Systems ROS Statement: Those systems with pertinent positive or pertinent negative responses have been documented in the HPI. ROS Other: All systems not noted in ROS Statement are negative. Past Medical History Past Medical History: No Reported History Additional Past Medical History / Comment(s): 4-5 bulging disc, back pain, migraines History of Any Multi-Drug Resistant Organisms: None Reported Past Surgical History: Orthopedic Surgery Additional Past Surgical History / Comment(s): right knee, ACL right Past Anesthesia/Blood Transfusion Reactions: No Reported Reaction Past Psychological History: Anxiety, Depression Smoking Status: Current every day smoker Past Alcohol Use History: None Reported Past Drug Use History: None Reported, Marijuana - Past Family History Mother Family Medical History: Cancer, Congestive Heart Failure (CHF) General Exam Limitations: no limitations General appearance: alert, in no apparent distress Head exam: Present: atraumatic, normocephalic, normal inspection Eye exam: Present: normal appearance ENT exam: Present: normal exam, mucous membranes moist Neck exam: Present: normal inspection, full ROM. Absent: tenderness, meningismus, lymphadenopathy Respiratory exam: Present: normal lung sounds bilaterally. Absent: respiratory distress, wheezes, rales, rhonchi, stridor Cardiovascular Exam: Present: regular rate, normal rhythm, normal heart sounds. Absent: systolic murmur, diastolic murmur, rubs, gallop, clicks Skin exam: Present: other (There is a 0.5 cm x 0.5 cm vesicle noted on the left inner thigh. There is about a 1 L by 1 cm area of erythema surrounding the vesicle. It is not indurated, nontender and not warm to touch. No ringing visible at this time. No purulent drainage. No cellulitic changes.) Course Vital Signs 03/17/18 19:21 Temperature 99.1 F Pulse Rate 110 H Respiratory 16 Rate Blood Pressure 143/99 O2 Sat by Pulse 100 Oximetry Medical Decision Making - Medical Decision Making 32-year-old female presents to the emergency department for a chief complaint of bug bite to the left inner thigh. Patient noticed it this morning. Patient denies having seen checks on her. Patient states it had a red ring around it earlier. Denies fevers or other systemic symptoms. On exam patient has a 0.5 cm x 0.5 cm vesicle surrounded by 1 x 1 cm area of erythema. No cellulitic changes. Erythema is not indurated tender or warm to touch. No ring noted around the lesion at this time. However, patient states that earlier there was a ring around it. Discussed with patient the possibility of it being a tick bite. Patient agrees to take amoxicillin to prevent any developing Lyme disease. She will follow-up in one to 2 days with primary care. She will return to the emergency Department if she develops fevers or any other worsening symptoms. Disposition Clinical Impression: Bug bite Disposition: HOME SELF-CARE Condition: Good Instructions: Insect Bite or Sting (ED) Additional Instructions: Take amoxicillin as directed. Please take Benadryl as needed for rash. Please return to the emergency department if you have any worsening symptoms or fevers. Otherwise follow-up with primary care in 1-2 days. Prescriptions: Amoxicillin 500 mg PO Q8H 14 Days #42 capsule diphenhydrAMINE [Benadryl] 25 mg PO QID PRN #20 capsule PRN Reason: Rash Is patient prescribed a controlled substance at d/c from ED?: No Referrals: George Johnson MD [STAFF PHYSICIAN] - 1-2 days Time of Disposition: 20:01
[2018-03-17 20:49] VITALS: BP 133/79; PULSE 84; TEMP 97
== END 2018-03-17 20:15 | disposition home or self-care (01) ==
LOC: EC 19:12
DX: S70.362A Insect bite (nonvenomous), left thigh, initial encounter (principal); F17.200 Nicotine dependence, unspecified, uncomplicated; W57.XXXA Bitten or stung by nonvenomous insect and other nonvenomous arthropods, initial encounter
CPT/HCPCS: 99282

== ENCOUNTER 2018-03-21 04:30 | Emergency (ER) | payer SELFPAY ==
[2018-03-21] MEDS ORDERED: ACETAMINOPHEN TAB 500 MG TAB PO STA (04:46)
[2018-03-21] MEDS ORDERED: DEXAMETHASONE SOD PHOSPHATE 10 MG/ML 1 ML VIAL IM STA (04:46)
[2018-03-21] MEDS ORDERED: IBUPROFEN 800 MG TAB PO STA (04:46)
--- NOTE | 2018-03-21 04:50 | ED ---
General Adult HPI - General Chief complaint: ENT Stated complaint: Earache Time Seen by Provider: 03/21/18 04:32 Source: patient, RN notes reviewed, old records reviewed Mode of arrival: ambulatory Limitations: no limitations - History of Present Illness Initial comments: This is a 30-year-old female the ER for evaluation. Today patient does agree nausea right foot Swelling. Right ear pain. Patient is currently on amoxicillin for treatment of possible Lyme disease or prevention of eye disease secondary take bite. Patient denies any significant rash no fevers. No difficulty swallowing or trauma no change pain. No difficulty with vision. Patient has no significant medical history - Related Data Home Medications Medication Instructions Recorded Confirmed Hydrocodone/Acetaminophen [[place] 1 tab PO BID PRN 01/13/18 03/04/18 5-325] Previous Rx's Medication Instructions Recorded Ibuprofen [Motrin] 600 mg PO Q8HR PRN #30 tab 03/04/18 Ondansetron Odt [Zofran Odt] 4 mg PO Q8HR PRN #10 tab 03/04/18 Amoxicillin 500 mg PO Q8H 14 Days #42 capsule 03/17/18 diphenhydrAMINE [Benadryl] 25 mg PO QID PRN #20 capsule 03/17/18 Allergies Allergy/AdvReac Type Severity Reaction Status Date / Time No Known Allergies Allergy Verified 03/21/18 04:36 Review of Systems ROS Statement: Those systems with pertinent positive or pertinent negative responses have been documented in the HPI. ROS Other: All systems not noted in ROS Statement are negative. Past Medical History Past Medical History: No Reported History Additional Past Medical History / Comment(s): 4-5 bulging disc, back pain, migraines History of Any Multi-Drug Resistant Organisms: None Reported Past Surgical History: Orthopedic Surgery Additional Past Surgical History / Comment(s): right knee, ACL right Past Anesthesia/Blood Transfusion Reactions: No Reported Reaction Past Psychological History: Anxiety, Depression Smoking Status: Current every day smoker Past Alcohol Use History: None Reported Past Drug Use History: None Reported, Marijuana - Past Family History Mother Family Medical History: Cancer, Congestive Heart Failure (CHF) General Exam Limitations: no limitations General appearance: alert, in no apparent distress Head exam: Present: atraumatic, normocephalic, normal inspection Eye exam: Present: normal appearance, PERRL, EOMI. Absent: scleral icterus, conjunctival injection, periorbital swelling ENT exam: Present: normal exam, mucous membranes moist Neck exam: Present: normal inspection. Absent: tenderness, meningismus, lymphadenopathy Respiratory exam: Present: normal lung sounds bilaterally. Absent: respiratory distress, wheezes, rales, rhonchi, stridor Cardiovascular Exam: Present: regular rate, normal rhythm, normal heart sounds. Absent: systolic murmur, diastolic murmur, rubs, gallop, clicks GI/Abdominal exam: Present: soft, normal bowel sounds. Absent: distended, tenderness, guarding, rebound, rigid Extremities exam: Present: normal inspection, full ROM, normal capillary refill. Absent: tenderness, pedal edema, joint swelling, calf tenderness Back exam: Present: normal inspection Neurological exam: Present: alert, oriented X3, CN II-XII intact Psychiatric exam: Present: normal affect, normal mood Skin exam: Present: warm, dry, intact, normal color. Absent: rash Course Vital Signs 03/21/18 03/21/18 03/21/18 04:34 05:56 06:27 Temperature 98.1 F 98.7 F Pulse Rate 79 82 Respiratory 16 18 Rate Blood Pressure 144/99 144/84 O2 Sat by Pulse 98 99 Oximetry Medical Decision Making - Medical Decision Making 32 female ER for evaluation of right ear pain, right-sided facial pain and right sided ear pain Positive right-sided lymphadenopathy. No acute disease found. Patient will continue amoxicillin and be discharged home - Radiology Data Radiology results: report reviewed (CT soft tissue neck IAC negative), image reviewed Disposition Clinical Impression: Lymphadenopathy of right cervical region Disposition: HOME SELF-CARE Condition: Good Instructions: Lymphadenopathy (ED), Adenitis (ED) Is patient prescribed a controlled substance at d/c from ED?: No Referrals: None,Stated [Primary Care Provider] - 1-2 days
--- NOTE | 2018-03-21 05:18 | CT ---
EXAMINATION TYPE: CT soft tissue neck wo con DATE OF EXAM: 03/21/2018 HISTORY: Right side ear pain, jaw pain COMPARISON: None CT DLP: 324.90 mGycm. Automated Exposure Control for Dose Reduction was Utilized. TECHNIQUE: Multiple axial sections were obtained from the level of the aortic arch to the lateral delphine tricles with no contrast. FINDINGS: There is normal branching pattern of the great vessels on the aortic arch. There is no evidence of th yroid mass. Epiglottis is normal. Prevertebral soft tissues are not enlarged. There are a few anterio r and posterior triangle cervical lymph nodes measure up to 1 cm. I see no significant adenopathy. Ex am is limited by lack of contrast. The trachea appears normal. There is no evidence of a pharyngeal m ass. Soft tissues at the skull base appear normal. The tonsils do not appear enlarged. Adenoids do no t appear enlarged. Cervical spine is intact. IMPRESSION: Negative CT scan of the cervical soft tissues.
--- NOTE | 2018-03-21 05:21 | CT ---
EXAMINATION TYPE: CT iac wo con DATE OF EXAM: 03/21/2018 COMPARISON: None HISTORY: Right side ear pain CT DLP: 150.00mGycm Automated exposure control for dose reduction was used. FINDINGS: Images were obtained from the level of the bottom of the maxillary sinuses to the third delphine tricle with no contrast. There is fairly normal aeration of the paranasal sinuses. I see no bony destructive process. There is bilateral patency of the ostiomeatal complex. Orbital margins are intact. There is no evidence of or bital mass. The maxilla is intact. There is normal aeration of the temporal bones and mastoid air usha ls. There is normal appearance of the external auditory canals. There is normal aeration of the middl e ear cavity bilaterally. There is normal aeration of the epitympanic recess bilaterally. I see no fo jah bone destruction. Cochlea and semicircular canals are symmetric. The temporomandibular joints stewart ear normal. I see no focal bone destruction. There is no evidence of a mass at the skull base. Spheno id bone appears normal. IMPRESSION: Normal CT scan of the temporal bones. I do not see a cause for right side pain.
[2018-03-21 06:00] VITALS: BP 144/84; PULSE 82; RESP 18
[2018-03-21 06:29] VITALS: TEMP 98.7
== END 2018-03-21 06:27 | disposition home or self-care (01) ==
LOC: EC 04:30
DX: R59.0 Localized enlarged lymph nodes (principal); H92.01 Otalgia, right ear; M79.89 Other specified soft tissue disorders; R11.0 Nausea; F17.200 Nicotine dependence, unspecified, uncomplicated
CPT/HCPCS: 99284; 96372; 70490; 70480; J1100

== ENCOUNTER 2018-03-24 16:29 | Emergency (ER) | payer OTHER ==
[2018-03-24 16:40] VITALS: BP 162/99; PULSE 103; RESP 18; TEMP 98.3
[2018-03-24] MEDS ORDERED: KETOROLAC 30 MG/ML 1 ML VIAL IM STA (17:28)
[2018-03-24] MEDS ORDERED: carBAMazepine 200 MG TAB PO STA (17:28)
[2018-03-24] MEDS ORDERED: HYDROcodone/APAP 5-325MG 1 EACH TAB PO STA (17:28)
--- NOTE | 2018-03-24 17:31 | ED ---
ENT HPI - General Chief complaint: ENT Stated complaint: rt side jaw pain shooting into ear Time Seen by Provider: 03/24/18 17:05 Source: patient Mode of arrival: ambulatory Limitations: no limitations - History of Present Illness Initial comments: 32-year-old female patient presents to the emergency department today for evaluation of severe right-sided facial pain. Patient states the pain extends from her ear down her right jaw. Patient states that the pain started last night. Patient states it has been constant. States it is a very sharp pain. Patient states that she does have a cavity in her right lower molar however she does not think the pain is coming from this area. She denies any facial swelling. Denies any fevers or chills. Patient was seen and evaluated here for similar yet less severe pain on 03/21/2018. Should have CT scanning of the neck and ear due to evidence of lymphadenopathy which showed no acute abnormalities. Patient states that nothing she has tried to stop the pain. Denies any history of similar symptoms prior to the 8th. Patient was recently treated prophylactically for Lyme disease after a tick bite. Patient denies any recent rash, shortness breath, chest pain, abdominal pain, nausea, vomiting, diarrhea, constipation, back pain, numbness, tingling, dizziness, weakness, hematuria, dysuria, urinary urgency, urinary frequency, headache, visual changes , or any other complaints. - Related Data Home Medications Medication Instructions Recorded Confirmed Hydrocodone/Acetaminophen [[place] 1 tab PO BID PRN 01/13/18 03/24/18 5-325] Acetaminophen Tab [Tylenol Tab] 1,000 mg PO Q6HR PRN 03/24/18 03/24/18 Butalb/APAP/Caff 50-325-40Mg 1 tab PO Q4H PRN 03/24/18 03/24/18 [Fioricet 50-325-40] Naproxen 1,000 mg PO Q12H PRN 03/24/18 03/24/18 Previous Rx's Medication Instructions Recorded Ibuprofen [Motrin] 600 mg PO Q8HR PRN #30 tab 03/04/18 carBAMazepine [Carbatrol] 100 mg PO Q12HR #28 cap 03/24/18 Allergies Allergy/AdvReac Type Severity Reaction Status Date / Time No Known Allergies Allergy Verified 03/24/18 16:45 Review of Systems ROS Statement: Those systems with pertinent positive or pertinent negative responses have been documented in the HPI. ROS Other: All systems not noted in ROS Statement are negative. Past Medical History Past Medical History: No Reported History Additional Past Medical History / Comment(s): 4-5 bulging disc, back pain, migraines History of Any Multi-Drug Resistant Organisms: None Reported Past Surgical History: Orthopedic Surgery Additional Past Surgical History / Comment(s): right knee, ACL right Past Anesthesia/Blood Transfusion Reactions: No Reported Reaction Past Psychological History: Anxiety, Depression Smoking Status: Current every day smoker Past Alcohol Use History: None Reported Past Drug Use History: None Reported - Past Family History Mother Family Medical History: Cancer, Congestive Heart Failure (CHF) General Exam Limitations: no limitations General appearance: alert, in no apparent distress, other (This is a well- developed, well-nourished adult female patient in mild distress related to pain. Vital signs upon presentation are temperature 98.3F, pulse 103, respirations 18, blood pressure 162/99, pulse ox 100% on room air.) Eye exam: Present: normal appearance, PERRL, EOMI. Absent: scleral icterus, conjunctival injection, periorbital swelling ENT exam: Present: normal exam, normal oropharynx, mucous membranes moist, other (Patient does have dental caries noted to tooth #32. There is no surrounding gingival erythema or swelling. Tapping of the teeth to the right lower and right upper jaw does not reproduce the pain or make the pain worse. Patient is swallowing without difficulty. No trismus.) Neck exam: Present: normal inspection, full ROM. Absent: tenderness, meningismus, lymphadenopathy Respiratory exam: Present: normal lung sounds bilaterally. Absent: respiratory distress, wheezes, rales, rhonchi, stridor Cardiovascular Exam: Present: regular rate, normal rhythm, normal heart sounds. Absent: systolic murmur, diastolic murmur, rubs, gallop, clicks Neurological exam: Present: alert, oriented X3, CN II-XII intact Psychiatric exam: Present: normal affect, normal mood Skin exam: Present: warm, dry, intact, normal color. Absent: rash Course Vital Signs 03/24/18 16:36 Temperature 98.3 F Pulse Rate 103 H Respiratory 18 Rate Blood Pressure 162/99 O2 Sat by Pulse 100 Oximetry Medical Decision Making - Medical Decision Making 32-year-old female patient presents to the emergency department today for evaluation of severe right facial pain. Evaluation of the dentition does not reveal any evidence of dental abscess or signs that the pain is coming from the teeth. Right tympanic membrane is within normal limits with no canal erythema or swelling. Did review CT scans of the soft tissue of the neck and the right internal auditory canal dated 03/21/2018, T showed no acute abnormalities. Patient does not currently have any lymphadenopathy. She is afebrile. Patient symptoms are consistent with trigeminal neuralgia that follows the mandibular division. We will give pain medication here in the department. I will give prescription for carbamazepine 100mg twice daily. She is instructed to follow up with primary care physician, Dr. Morris has been recommended. Return parameters discussed in detail. She verbalizes understanding and agrees with this plan. Disposition Clinical Impression: Trigeminal neuralgia of right side of face Disposition: HOME SELF-CARE Condition: Good Instructions: Trigeminal Neuralgia (ED) Additional Instructions: Take medications as directed. Follow up with primary care physician for recheck in 1-2 days. One has been recommended for you. Return here immediately for any new, worsening, or concerning symptoms. Prescriptions: carBAMazepine [Carbatrol] 100 mg PO Q12HR #28 cap Is patient prescribed a controlled substance at d/c from ED?: No Referrals: Mariposa Morris MD [STAFF PHYSICIAN] - 1-2 days Time of Disposition: 17:31
== END 2018-03-24 18:02 | disposition home or self-care (01) ==
LOC: EC 16:29
DX: G50.0 Trigeminal neuralgia (principal); K02.9 Dental caries, unspecified; F17.200 Nicotine dependence, unspecified, uncomplicated
CPT/HCPCS: 99284; 96372; J1885

== ENCOUNTER 2018-03-27 20:14 | Emergency (ER) | payer SELFPAY ==
[2018-03-27 20:34] VITALS: BP 118/81; PULSE 94; RESP 18; TEMP 98.9
--- NOTE | 2018-03-27 20:43 | ED ---
ENT HPI - General Chief complaint: Dental/Oral Stated complaint: Dental pain Time Seen by Provider: 03/27/18 20:24 Source: patient, RN notes reviewed Mode of arrival: ambulatory Limitations: no limitations - History of Present Illness Initial comments: 32-year-old female presents emergency Department with chief complaint right- sided jaw and face pain. Patient's had no associated swelling redness fever or chills. She's had 2 prior ER visits for this and has had CTs of her internal auditory canal and neck facial region. They're been no acute findings. She is been on antibiotics and carbamazepine with no relief. Patient states that she has not follow-up with primary physician as she just recently had her insurance fixed. Patient states that she cannot tolerate the pain and that over-the- counter not helping at this time. - Related Data Home Medications Medication Instructions Recorded Confirmed Hydrocodone/Acetaminophen [Ebro 1 tab PO BID PRN 01/13/18 03/24/18 5-325] Acetaminophen Tab [Tylenol Tab] 1,000 mg PO Q6HR PRN 03/24/18 03/24/18 Butalb/APAP/Caff 50-325-40Mg 1 tab PO Q4H PRN 03/24/18 03/24/18 [Fioricet 50-325-40] Naproxen 1,000 mg PO Q12H PRN 03/24/18 03/24/18 Previous Rx's Medication Instructions Recorded Ibuprofen [Motrin] 600 mg PO Q8HR PRN #30 tab 03/04/18 carBAMazepine [Carbatrol] 100 mg PO Q12HR #28 cap 03/24/18 Hydrocodone/Acetaminophen [Ebro 1 tab PO Q6HR PRN #12 tab 03/27/18 5-325] predniSONE 50 mg PO DAILY #5 tab 03/27/18 Allergies Allergy/AdvReac Type Severity Reaction Status Date / Time No Known Allergies Allergy Verified 03/27/18 20:32 Review of Systems ROS Statement: Those systems with pertinent positive or pertinent negative responses have been documented in the HPI. ROS Other: All systems not noted in ROS Statement are negative. Past Medical History Past Medical History: No Reported History Additional Past Medical History / Comment(s): 4-5 bulging disc, back pain, migraines History of Any Multi-Drug Resistant Organisms: None Reported Past Surgical History: Orthopedic Surgery Additional Past Surgical History / Comment(s): right knee, ACL right Past Anesthesia/Blood Transfusion Reactions: No Reported Reaction Past Psychological History: Anxiety, Depression Smoking Status: Current every day smoker Past Alcohol Use History: None Reported Past Drug Use History: None Reported - Past Family History Mother Family Medical History: Cancer, Congestive Heart Failure (CHF) General Exam Limitations: no limitations General appearance: alert, in no apparent distress Head exam: Present: atraumatic, normocephalic, normal inspection Eye exam: Present: normal appearance, PERRL, EOMI. Absent: scleral icterus, conjunctival injection, periorbital swelling ENT exam: Present: normal exam, mucous membranes moist, TM's normal bilaterally , other (Clicking and popping felt over the TMJ region). Absent: normal oropharynx (Dental fracture dental caries right lower posterior) Neck exam: Present: normal inspection, full ROM. Absent: tenderness, meningismus, lymphadenopathy Respiratory exam: Present: normal lung sounds bilaterally. Absent: respiratory distress, wheezes, rales, rhonchi, stridor Cardiovascular Exam: Present: regular rate, normal rhythm, normal heart sounds. Absent: systolic murmur, diastolic murmur, rubs, gallop, clicks Course Vital Signs 03/27/18 20:29 Temperature 98.9 F Pulse Rate 94 Respiratory 18 Rate Blood Pressure 118/81 O2 Sat by Pulse 99 Oximetry Medical Decision Making - Medical Decision Making 32-year-old female presents immersed from for right-sided facial pain. This may be related to TMJ, mandibular pain as there is no other associated symptoms. She does have noted clicking and popping. She has been tried on medications for her trigeminal neuralgia and currently taking antibiotics and said no relief. She be on a steroid at this time and pain medication for 3 days. Disposition Clinical Impression: Temporomandibular joint disorder, Pain in lower jaw, Fracture of tooth Disposition: HOME SELF-CARE Condition: Stable Instructions: Temporomandibular Disorder (ED) Additional Instructions: Please return to the Emergency Department if symptoms worsen or any other concerns. Prescriptions: Hydrocodone/Acetaminophen [Ebro 5-325] 1 tab PO Q6HR PRN #12 tab PRN Reason: Pain predniSONE 50 mg PO DAILY #5 tab Is patient prescribed a controlled substance at d/c from ED?: Yes When asked, does pt state using other controlled substances?: No If prescribed controlled substance>3 days was MAPS reviewed?: Prescribed <3 Days If opioid is for acute pain is fill amount 7 days or less?: Yes If Rx opioid, was Start Talking consent form obtained?: Yes Referrals: Mariposa Morris MD [STAFF PHYSICIAN] - 1-2 days Time of Disposition: 20:43
== END 2018-03-27 20:45 | disposition home or self-care (01) ==
LOC: EC 20:14
DX: S02.5XXA Fracture of tooth (traumatic), initial encounter for closed fracture (principal); M26.601 Right temporomandibular joint disorder, unspecified; K02.9 Dental caries, unspecified; F17.200 Nicotine dependence, unspecified, uncomplicated; X58.XXXA Exposure to other specified factors, initial encounter
CPT/HCPCS: 99282

== ENCOUNTER 2018-07-18 14:02 | Emergency (ER) | payer OTHER ==
[2018-07-18 14:07] VITALS: BP 127/83; PULSE 100; RESP 16; TEMP 98.4
[2018-07-18] MEDS ORDERED: KETOROLAC 30 MG/ML 1 ML VIAL IM STA (14:13)
[2018-07-18] MEDS ORDERED: CYCLOBENZAPRINE 10 MG TAB PO STA (14:18)
--- NOTE | 2018-07-18 14:57 | ED ---
Back Pain [facility] - General Chief Complaint: Back Pain/Injury Stated Complaint: Back Spasm Time Seen by Provider: 07/18/18 14:07 Source: patient Limitations: no limitations - History of Present Illness Initial Comments: 32-year-old female with past medical history of chronic thoracic back pain presenting today for chief complaint of muscle spasm. Patient states that Thursday she began noticing her typical muscle spasms of the upper back. 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 Patient denies any falls or injury to the back. Patient denies any fever, chills, IV drug use, upper extremity or lower external paresthesias, numbness or muscle weakness. Patient denies history of cancer. Patient states that she was taking over-the- counter naproxen and ibuprofen for pain management as needed. In addition patient states she's been applying heat and ice which has helped minimally. Patient presents today for continued back spasms 3 days. Upon arrival patient' s vital signs within except limits, patient appears well, ambulating without difficulty.Patient denies any recent URI symptoms, cough, fever, chills, shortness of breath, chest pain, back pain, abdominal pain, nausea or vomiting, numbness or tingling, dysuria or hematuria, history of renal calculi, constipation or diarrhea, headaches or visual changes, or any other complaints. - Related Data Home Medications Medication Instructions Recorded Confirmed Hydrocodone/Acetaminophen [[place]rystal 1 tab PO BID PRN 01/13/18 03/24/18 5-325] Acetaminophen Tab [Tylenol Tab] 1,000 mg PO Q6HR PRN 03/24/18 03/24/18 Butalb/APAP/Caff 50-325-40Mg 1 tab PO Q4H PRN 03/24/18 03/24/18 [Fioricet 50-325-40] Naproxen 1,000 mg PO Q12H PRN 03/24/18 03/24/18 Previous Rx's Medication Instructions Recorded Ibuprofen [Motrin] 600 mg PO Q8HR PRN #30 tab 03/04/18 carBAMazepine [Carbatrol] 100 mg PO Q12HR #28 cap 03/24/18 Hydrocodone/Acetaminophen [[place]rystal 1 tab PO Q6HR PRN #12 tab 03/27/18 5-325] predniSONE 50 mg PO DAILY #5 tab 03/27/18 Cyclobenzaprine [Flexeril] 5 mg PO HS 3 Days #3 tab 07/18/18 Ibuprofen 800 mg PO Q8H PRN 7 Days #21 tablet 07/18/18 Allergies Allergy/AdvReac Type Severity Reaction Status Date / Time No Known Allergies Allergy Verified 07/18/18 14:07 Review of Systems ROS Statement: Those systems with pertinent positive or pertinent negative responses have been documented in the HPI. ROS Other: All systems not noted in ROS Statement are negative. Constitutional: Denies: fever, chills, night sweats ENT: Denies: ear pain, throat pain Respiratory: Denies: cough, dyspnea, wheezes, hemoptysis, stridor Cardiovascular: Denies: chest pain, palpitations, dyspnea on exertion Endocrine: Denies: fatigue Gastrointestinal: Denies: abdominal pain, nausea, vomiting, diarrhea, constipation Musculoskeletal: Reports: back pain (mid thoracic paravertebral back spasm) Skin: Denies: rash, lesions Neurological: Denies: headache, weakness, numbness, paresthesias, confusion, abnormal gait, vertigo Past Medical History Past Medical History: No Reported History Additional Past Medical History / Comment(s): 4-5 bulging disc, back pain, migraines History of Any Multi-Drug Resistant Organisms: None Reported Past Surgical History: Orthopedic Surgery Additional Past Surgical History / Comment(s): right knee, ACL right Past Anesthesia/Blood Transfusion Reactions: No Reported Reaction Past Psychological History: Anxiety, Depression Smoking Status: Current every day smoker Past Alcohol Use History: None Reported Past Drug Use History: None Reported - Past Family History Mother Family Medical History: Cancer, Congestive Heart Failure (CHF) General Exam - General Exam Comments Initial Comments: General: The patient is awake and alert, in no distress, and does not appear acutely ill. Eye: Pupils are equal, round and reactive to light, extra-ocular movements are intact. No nystagmus. There is normal conjunctiva bilaterally. No signs of icterus. Cardiovascular: There is a regular rate and rhythm. No murmur, rub or gallop is appreciated. Respiratory: Lungs are clear to auscultation, respirations are non-labored, breath sounds are equal. No wheezes, stridor, rales, or rhonchi. Musculoskeletal: Upon inspection of the spinal column there is no lesions, abrasions or ecchymosis. Patient is able to fully range at the upper extremities equally bilaterally. Normal ROM thoracic and lumbar spine, no palpable muscle spasms, there is paravertebral tenderness to palpation of the thoracic spine, no midline tenderness tenderness. Strength 5/5 of the UE and LE equally b/l. Sensation intact including saddle region. Radial pulses equal bilaterally 2+.+2/5 DTR of LE equally b/l- no noted myoclonus or spasticity Neurological: A&O x 3. CN II-XII intact, There are no obvious motor or sensory deficits. Coordination appears grossly intact. Speech is normal. Skin: Skin is warm and dry and no rashes or lesions are noted. Psychiatric: Cooperative, appropriate mood & affect, normal judgment. Limitations: no limitations Course Vital Signs 07/18/18 14:04 Temperature 98.4 F Pulse Rate 100 Respiratory 16 Rate Blood Pressure 127/83 O2 Sat by Pulse 98 Oximetry Medical Decision Making - Medical Decision Making She denies any recent falls or trauma, IV drug use, fever, chills, history of cancer there is no history of recent URI, lung sounds are audible in all lung [place]-patient denies any shortness of breath or dyspnea on exertion or pain with deep inspiration. Patient states that this is a muscle spasm and is identical to when she's had previous muscle spasms in the past. Upon initial history patient denied seeing a practitioner within the last 3 years however upon review of MAPs she has received prescriptions for Crystal as well as diazepam within the last 7 months. Upon PE patient had no midline tenderness to palpation, she does admit to paravertebral tenderness of the thoracic spine, there is no tenderness to patient of the lumbar spine, patient denies any signs or symptoms concerning for neurological deficit or cauda equina. At this time feel radiographic imaging will be of limited value given no history of cancer, trauma or IV drug use. Patient was given Flexeril and Toradol for pain management. Patient was requesting narcotics. At this time I feel patient is stable for discharge as I feel after discussing the case with Dr. Medrano. Patient was given 1 days worth of Flexeril for muscle spasm as well as ibuprofen for pain management. She was instructed to follow-up with primary care provider in next 1-2 days. Patient is agreeable plan, denies questions at this time. Patient was discharged in stable condition. Disposition Clinical Impression: Muscle spasm of back Disposition: HOME SELF-CARE Condition: Good Instructions: Muscle Spasm (ED) Additional Instructions: Please use medication as discussed. Please follow-up with family doctor in the next 2 days. Please return to emergency room if the symptoms increase or worsen or for any other concerns. Prescriptions: Cyclobenzaprine [Flexeril] 5 mg PO HS 3 Days #3 tab Ibuprofen 800 mg PO Q8H PRN 7 Days #21 tablet PRN Reason: Pain Is patient prescribed a controlled substance at d/c from ED?: No Referrals: None,Stated [Primary Care Provider] - 1-2 days Time of Disposition: 14:58
== END 2018-07-18 15:09 | disposition home or self-care (01) ==
LOC: EC 14:02
DX: M62.830 Muscle spasm of back (principal); F17.200 Nicotine dependence, unspecified, uncomplicated
CPT/HCPCS: 99283; 96372; J1885

== ENCOUNTER 2018-12-13 23:30 | Emergency (ER) | payer OTHER ==
[2018-12-13 23:43] VITALS: TEMP 98.6
--- NOTE | 2018-12-14 01:08 | ED ---
General Adult HPI - General Chief complaint: Dental/Oral Stated complaint: Jaw/ Ear Pain Time Seen by Provider: 12/13/18 23:46 Source: patient, RN notes reviewed, old records reviewed Mode of arrival: ambulatory Limitations: no limitations - History of Present Illness Initial comments: 33-year-old female patient with past month history of right temporomandibular joint disorder presents to ED with approximately 3 days of left TMJ joint pain. Patient course that she has pain with range of motion of jaw, chewing, talking. Patient states that the symptoms feel similar to her right TMJ. Joint pain. Patient has use Tylenol and Motrin at home without significant improvement, however does report mild improvement. Patient denies any redness, warmth, fe vers chills, nausea vomiting diarrhea. Patient states that she is not . Patient is not currently have a primary care provider. Patient denies other complaints. Systemic: Pt denies fatigue, myalgia, fever/chills, rash. Pt denies weakness, night sweats, weight loss. Neuro: Pt denies headache, visual disturbances, syncope or pre-syncope. HEENT: Pt denies ocular discharge or irritation, otalgia, rhinorrhea, pharyngitis or notable lymphadenopathy. Cardiopulmonary: Pt denies chest pain, SOB, heart palpitations, dyspnea on exertion. Abdominal/GI: Pt denies abdominal pain, n/v/d. : Pt denies dysuria, burning w/ urination, frequency/urgency. Denies new onset urinary or bowel incontinence. MSK: Pt denies myalgia, loss of strength or function in extremities. Neuro: Pt denies new onset weakness, paresthesias. - Related Data Home Medications Medication Instructions Recorded Confirmed Hydrocodone/Acetaminophen [[place] 1 tab PO BID PRN 01/13/18 03/24/18 5-325] Acetaminophen Tab [Tylenol Tab] 1,000 mg PO Q6HR PRN 03/24/18 03/24/18 Butalb/APAP/Caff 50-325-40Mg 1 tab PO Q4H PRN 03/24/18 03/24/18 [Fioricet 50-325-40] Naproxen 1,000 mg PO Q12H PRN 03/24/18 03/24/18 Previous Rx's Medication Instructions Recorded Ibuprofen [Motrin] 600 mg PO Q8HR PRN #30 tab 03/04/18 carBAMazepine [Carbatrol] 100 mg PO Q12HR #28 cap 03/24/18 Hydrocodone/Acetaminophen [[place] 1 tab PO Q6HR PRN #12 tab 03/27/18 5-325] predniSONE 50 mg PO DAILY #5 tab 03/27/18 Cyclobenzaprine [Flexeril] 5 mg PO HS 3 Days #3 tab 07/18/18 Ibuprofen 800 mg PO Q8H PRN 7 Days #21 tablet 07/18/18 Cyclobenzaprine [Flexeril] 1 - 2 tab PO TID #20 tablet 12/14/18 Allergies Allergy/AdvReac Type Severity Reaction Status Date / Time No Known Allergies Allergy Verified 07/18/18 14:07 Review of Systems ROS Statement: Those systems with pertinent positive or pertinent negative responses have been documented in the HPI. ROS Other: All systems not noted in ROS Statement are negative. Past Medical History Past Medical History: No Reported History Additional Past Medical History / Comment(s): 4-5 bulging disc, back pain, migraines, History of Any Multi-Drug Resistant Organisms: None Reported Past Surgical History: Orthopedic Surgery Additional Past Surgical History / Comment(s): right knee, ACL right, Past Anesthesia/Blood Transfusion Reactions: No Reported Reaction Past Psychological History: Anxiety, Depression Smoking Status: Current every day smoker Past Alcohol Use History: Rare Past Drug Use History: None Reported - Past Family History Mother Family Medical History: Cancer, Congestive Heart Failure (CHF) General Exam - General Exam Comments Initial Comments: Constitutional: NAD, AOX3, Pt has pleasant affect. HEENT: NC/AT, trachea midline, neck supple, no lymphadenopathy. Posterior pharynx non erythematous, without exudates. External ears appear normal, without discharge. Mucous membranes moist. Eyes PERRLA, EOM intact. There is no scleral icterus. No pallor noted. Left TMJ mildly tender to palpation. Tenderness reproducible with range of motion throughout. No crepitus. No erythema, no edema, no drainage. Cardiopulmonary: RRR, no murmurs, rubs or gallops, no JVD noted. Lungs CTAB in anterior and posterior [place]. No peripheral edema. Abdominal exam: Abdomen soft and non-distended. Abdomen non-tender to palpation in all 4 quadrants. Bowel sounds active in LLQ. No hepatosplenomegaly. No ecchymosis Neuro: CN II-XII grossly intact. No nuchal rigidity. MSK: No posterior calf tenderness bilaterally, homans sign negative bilaterally. Posterior tibialis and radial pulse +2 bilaterally. Sensation intact in upper and lower extremities. Full active ROM in upper and lower extremities, 5/5 stregnth. Limitations: no limitations Course Vital Signs 12/13/18 12/14/18 23:41 01:32 Temperature 98.6 F 98.6 F Pulse Rate 122 H 102 H Respiratory 18 17 Rate Blood Pressure 169/93 138/96 O2 Sat by Pulse 100 97 Oximetry Medical Decision Making - Medical Decision Making 33-year-old female patient with past month history of right temporomandibular joint disorder presents to ED with approximately 3 days of left TMJ joint pain. Patient course that she has pain with range of motion of jaw, chewing, talking. Patient states that the symptoms feel similar to her right TMJ. Joint pain. Patient has use Tylenol and Motrin at home without significant improvement, however does report mild improvement. Patient denies any redness, warmth, fevers chills, nausea vomiting diarrhea. Patient states that she is not . Patient is not currently have a primary care provider. Patient denies other complaints. Physical exam displayed: Left TMJ mildly tender to palpation. Tenderness reproducible with range of motion throughout. No crepitus. No erythema, no edema, no drainage. Patient pain well-controlled with Toradol. She was discharged with prescription for Flexeril. Patient will follow up with primary care provider referral in one to 2 days. Patient return to ER condition worsens in any way. Case discussed with Dr. Razo. Disposition Clinical Impression: TMJ arthralgia Disposition: HOME SELF-CARE Condition: Stable Instructions (If sedation given, give patient instructions): Temporomandibular Disorder (ED) Additional Instructions: Patient to adhere to previously discussed treatment plan and will take medication(s) as directed. Patient to follow up with PCP in 1-2 days. Patient to return to ED if symptoms do not improve. Please follow-up with primary care provider in 1-2 days. Return to ER condition worsens in any way. Prescriptions: Cyclobenzaprine [Flexeril] 1 - 2 tab PO TID #20 tablet Is patient prescribed a controlled substance at d/c from ED?: No Referrals: None,Stated [Primary Care Provider] - 1-2 days [facility] [NON-STAFF] - 1-2 days
[2018-12-14 01:33] VITALS: BP 138/96; PULSE 102; RESP 17
[2018-12-14] MEDS ORDERED: KETOROLAC 60 MG/2 ML VIAL IM STA (01:34)
== END 2018-12-14 01:46 | disposition home or self-care (01) ==
LOC: EC 23:30
DX: M26.623 Arthralgia of bilateral temporomandibular joint (principal); F17.200 Nicotine dependence, unspecified, uncomplicated
CPT/HCPCS: 96372; 99283

== ENCOUNTER 2019-04-01 23:01 | Emergency (ER) | payer OTHER ==
[2019-04-01 23:54] VITALS: BP 118/75; PULSE 98; RESP 18; TEMP 98.8
[2019-04-02] MEDS ORDERED: MORPHINE SULFATE 2 MG/ML SYRINGE IM STA (01:37)
[2019-04-02] MEDS ORDERED: CLINDAMYCIN 150 MG CAP PO STA (01:39)
--- NOTE | 2019-04-02 01:43 | ED ---
ENT HPI - General Chief complaint: Dental/Oral Stated complaint: Dental Pain Time Seen by Provider: 04/02/19 00:33 Source: patient Mode of arrival: ambulatory Limitations: no limitations - History of Present Illness Initial comments: The patient is a 33-year-old female who presents emergency Department with reported dental pain. The patient states that she has an impacted molar on her right side which has been causing her significant pain over the past week. She states that it is throbbing and she has an associated poor taste in her mouth. She has several dental caries and states she has not seen a dentist in over 3 years. There is minor right-sided facial swelling. She denies any chest pain or shortness of breath. No difficulty swallowing. No drooling, trismus or hoarseness. He has not taken any medications at home for her pain. Denies any associated nausea, vomiting or fevers. There are no other alleviating, precipitating or modifying factors - Related Data Home Medications Medication Instructions Recorded Confirmed Hydrocodone/Acetaminophen [[place] 1 tab PO BID PRN 01/13/18 03/24/18 5-325] Acetaminophen Tab [Tylenol Tab] 1,000 mg PO Q6HR PRN 03/24/18 03/24/18 Butalb/APAP/Caff 50-325-40Mg 1 tab PO Q4H PRN 03/24/18 03/24/18 [Fioricet 50-325-40] Naproxen 1,000 mg PO Q12H PRN 03/24/18 03/24/18 Previous Rx's Medication Instructions Recorded Ibuprofen [Motrin] 600 mg PO Q8HR PRN #30 tab 03/04/18 carBAMazepine [Carbatrol] 100 mg PO Q12HR #28 cap 03/24/18 Hydrocodone/Acetaminophen [[place] 1 tab PO Q6HR PRN #12 tab 03/27/18 5-325] predniSONE 50 mg PO DAILY #5 tab 03/27/18 Cyclobenzaprine [Flexeril] 5 mg PO HS 3 Days #3 tab 07/18/18 Ibuprofen 800 mg PO Q8H PRN 7 Days #21 tablet 07/18/18 Cyclobenzaprine [Flexeril] 1 - 2 tab PO TID #20 tablet 12/14/18 Clindamycin [Cleocin] 450 mg PO Q8HR #63 capsule 04/02/19 Hydrocodone/Acetaminophen [[place] 1 tab PO Q6HR PRN #12 tab 04/02/19 5-325] Allergies Allergy/AdvReac Type Severity Reaction Status Date / Time No Known Allergies Allergy Verified 04/08/19 13:18 Review of Systems ROS Statement: Those systems with pertinent positive or pertinent negative responses have been documented in the HPI. ROS Other: All systems not noted in ROS Statement are negative. Past Medical History Past Medical History: No Reported History Additional Past Medical History / Comment(s): 4-5 bulging disc, back pain, migraines, History of Any Multi-Drug Resistant Organisms: None Reported Past Surgical History: Orthopedic Surgery Additional Past Surgical History / Comment(s): right knee, ACL right, Past Anesthesia/Blood Transfusion Reactions: No Reported Reaction Past Psychological History: Anxiety, Depression, PTSD Smoking Status: Current every day smoker Past Alcohol Use History: Rare Past Drug Use History: Marijuana - Past Family History Mother Family Medical History: Cancer, Congestive Heart Failure (CHF) General Exam Limitations: no limitations General appearance: alert, in no apparent distress Head exam: Present: atraumatic, normocephalic, normal inspection Eye exam: Present: normal appearance, PERRL, EOMI. Absent: scleral icterus, conjunctival injection, periorbital swelling ENT exam: Present: normal oropharynx, mucous membranes moist, other (pain to palpation of the right mandibular region. Poor dentition overall with several fractured teeth. no signs of dental abscess. There is minimal swelling to the patients right buccal mucosa) Neck exam: Present: normal inspection, other (no crepitance or induration. No drooling, trismus, hoarseness or stridor). Absent: tenderness, meningismus, lymphadenopathy Respiratory exam: Present: normal lung sounds bilaterally. Absent: respiratory distress, wheezes, rales, rhonchi, stridor Cardiovascular Exam: Present: regular rate, normal rhythm, normal heart sounds. Absent: systolic murmur, diastolic murmur, rubs, gallop, clicks GI/Abdominal exam: Present: soft, normal bowel sounds. Absent: distended, tenderness, guarding, rebound, rigid Extremities exam: Present: normal inspection, full ROM, normal capillary refill. Absent: tenderness, pedal edema, joint swelling, calf tenderness Back exam: Present: normal inspection Neurological exam: Present: alert, oriented X3, CN II-XII intact Psychiatric exam: Present: normal affect, normal mood Skin exam: Present: warm, dry, intact, normal color. Absent: rash Course Vital Signs 04/01/19 23:50 Temperature 98.8 F Pulse Rate 98 Respiratory 18 Rate Blood Pressure 118/75 O2 Sat by Pulse 99 Oximetry Medical Decision Making - Medical Decision Making Upon arrival the patient is placed into room 27. I did discuss diagnosis, differential and treatment options. Inspection of the patient's oral cavity reveals no signs of a dental abscess. Neck is soft without induration or crepitance. No signs of Korey angina. I did offer the patient something for pain control. She was given 4 mg of morphine IM. I did recommend lab studies as well as a CT of the patient's face. The patient refuses at this time stating that she would like to attempt antibiotics and if the swelling gets worse, she would return to the emergency room. The patient is informed of the risks of not completing a full examination to include worsening swelling with airway compromise. The patient understood and is able to restate the risks in her own wording. She is of sound mind and capable of refusing the work-up. There is no drooling, trismus, hoarseness or stridor. I did provide the patient with a dose of clindamycin in the emergency room. The patient will be discharged home and given a prescription for clindamycin and a limited supply of [place]. She does sign an opioid start talking form. Side effect profile discuss with the patient - she is to not work or drive while taking the R[place]. I did inform her that she must follow-up with her dentist and have the tooth removed. Patient understood this. If she has any new or worsening symptoms, she should return to the ED. Patient was in agreement with the treatment plan and was discharge home in stable condition - Differential Diagnosis acute dentalgia, dental abscess, pulpitis, facial cellulitis Disposition Clinical Impression: Dental caries, Impacted molar, Toothache Disposition: HOME SELF-CARE Condition: Stable Instructions (If sedation given, give patient instructions): Dental Caries (ED) Additional Instructions: Please take the medications as directed and follow-up with your dentist to have your tooth pulled. Return to the emergency room for any new or worsening symptoms Prescriptions: Clindamycin [Cleocin] 450 mg PO Q8HR #63 capsule Hydrocodone/Acetaminophen [[place] 5-325] 1 tab PO Q6HR PRN #12 tab PRN Reason: Pain Is patient prescribed a controlled substance at d/c from ED?: Yes When asked, does pt state using other controlled substances?: No If prescribed controlled substance>3 days was MAPS reviewed?: Prescribed <3 Days If opioid is for acute pain is fill amount 7 days or less?: Yes If Rx opioid, was Start Talking consent form obtained?: Yes Referrals: None,Stated [Primary Care Provider] - 1-2 days Time of Disposition: 01:43
== END 2019-04-02 01:59 | disposition home or self-care (01) ==
LOC: EC 23:01
DX: K02.9 Dental caries, unspecified (principal); K01.1 Impacted teeth; F17.200 Nicotine dependence, unspecified, uncomplicated; Z53.29 Procedure and treatment not carried out because of patient's decision for other reasons
CPT/HCPCS: 99282; 96372; J2270

== ENCOUNTER 2019-04-08 13:11 | Emergency (ER) | payer OTHER ==
[2019-04-08 13:21] VITALS: BP 150/98; PULSE 101; RESP 18; TEMP 97.5
--- NOTE | 2019-04-08 14:37 | ED ---
General Adult HPI - General Chief complaint: Neck Pain/Injury Stated complaint: rt neck and should pain Time Seen by Provider: 04/08/19 14:05 Source: patient, RN notes reviewed Mode of arrival: ambulatory Limitations: no limitations - History of Present Illness Initial comments: 34-year-old female presents to the emergency department for a chief complaint of dental pain. Patient states she has right-sided lower dental pain from an impacted wisdom tooth. States that the pain radiates down the front of her neck as well. States that she was seen here 6 days ago and started on an antibiotic. Patient states the swelling has improved significantly and the pain in her tooth has improved somewhat however she is still having anterior neck pain. Denies fevers or chills. She was directed to follow-up with her dentist but has not yet made an appointment..Patient has no other complaints at this time including shortness of breath, chest pain, abdominal pain, nausea or vomiting, headache, or visual changes. - Related Data Home Medications Medication Instructions Recorded Confirmed Hydrocodone/Acetaminophen [[place] 1 tab PO BID PRN 01/13/18 03/24/18 5-325] Acetaminophen Tab [Tylenol Tab] 1,000 mg PO Q6HR PRN 03/24/18 03/24/18 Butalb/APAP/Caff 50-325-40Mg 1 tab PO Q4H PRN 03/24/18 03/24/18 [Fioricet 50-325-40] Naproxen 1,000 mg PO Q12H PRN 03/24/18 03/24/18 Previous Rx's Medication Instructions Recorded Ibuprofen [Motrin] 600 mg PO Q8HR PRN #30 tab 03/04/18 carBAMazepine [Carbatrol] 100 mg PO Q12HR #28 cap 03/24/18 Hydrocodone/Acetaminophen [[place] 1 tab PO Q6HR PRN #12 tab 03/27/18 5-325] predniSONE 50 mg PO DAILY #5 tab 03/27/18 Cyclobenzaprine [Flexeril] 5 mg PO HS 3 Days #3 tab 07/18/18 Ibuprofen 800 mg PO Q8H PRN 7 Days #21 tablet 07/18/18 Cyclobenzaprine [Flexeril] 1 - 2 tab PO TID #20 tablet 12/14/18 Clindamycin [Cleocin] 450 mg PO Q8HR #63 capsule 04/02/19 Hydrocodone/Acetaminophen [[place] 1 tab PO Q6HR PRN #12 tab 04/02/19 5-325] Allergies Allergy/AdvReac Type Severity Reaction Status Date / Time No Known Allergies Allergy Verified 04/08/19 13:18 Review of Systems ROS Statement: Those systems with pertinent positive or pertinent negative responses have been documented in the HPI. ROS Other: All systems not noted in ROS Statement are negative. Past Medical History Past Medical History: No Reported History Additional Past Medical History / Comment(s): 4-5 bulging disc, back pain, migraines, History of Any Multi-Drug Resistant Organisms: None Reported Past Surgical History: Orthopedic Surgery Additional Past Surgical History / Comment(s): right knee, ACL right, Past Anesthesia/Blood Transfusion Reactions: No Reported Reaction Past Psychological History: Anxiety, Depression, PTSD Smoking Status: Current every day smoker Past Alcohol Use History: Rare Past Drug Use History: Marijuana - Past Family History Mother Family Medical History: Cancer, Congestive Heart Failure (CHF) General Exam Limitations: no limitations General appearance: alert, in no apparent distress Head exam: Present: atraumatic, normocephalic, normal inspection Eye exam: Present: normal appearance, PERRL, EOMI. Absent: scleral icterus, conjunctival injection, periorbital swelling ENT exam: Present: normal exam, mucous membranes moist, TM's normal bilaterally, normal external ear exam. Absent: normal oropharynx (Patient has an impacted tooth 32 with minimal gingival edema. No abscess noted. No fluid collection palpated in the cheek.) Neck exam: Present: full ROM (She has full range motion is full flexion and extension and rotation.), lymphadenopathy (She has a tender and enlarged right submandibular lymph node.). Absent: meningismus, other (No appreciable edema or erythema noted of the right side of the face or neck.) Respiratory exam: Present: normal lung sounds bilaterally. Absent: respiratory distress, wheezes, rales, rhonchi, stridor Cardiovascular Exam: Present: regular rate, normal rhythm, normal heart sounds. Absent: systolic murmur, diastolic murmur, rubs, gallop, clicks Neurological exam: Present: alert, oriented X3, CN II-XII intact Psychiatric exam: Present: normal affect, normal mood Course Vital Signs 04/08/19 13:18 Temperature 97.5 F L Pulse Rate 101 H Respiratory 18 Rate Blood Pressure 150/98 O2 Sat by Pulse 99 Oximetry Medical Decision Making - Medical Decision Making 34-year-old female presents to the emergency pertinent for a chief complaint of right-sided dental pain and neck pain. Patient states that she started on clindamycin 6 days ago. States she has had significant improvement in dental pain and swelling. However patient still has anterior neck pain. No fevers or chills. Patient has not followed up with her dentist as directed. Vitals are stable here in the emergency department. Patient is afebrile. On exam patient does have a impacted tooth 32 with minimal gingival edema, no abscess palpated. No edema or erythema noted of the right side of the face or neck. Patient does have a right enlarged and tender submandibular lymph node which is likely the cause of patient's anterior neck pain. Discussed that clindamycin seems to be helping for the infection and that she needs to follow up with her dentist as soon as possible. Patient does agree to make this appointment today. Discussed that she will return here if he has any worsening symptoms. Disposition Clinical Impression: Lymphadenopathy, Dental infection Disposition: HOME SELF-CARE Condition: Good Instructions (If sedation given, give patient instructions): Lymphadenopathy (ED), Toothache (ED) Additional Instructions: Please follow up with dentist as soon as possible. Finish course of clindamycin. Return to the emergency department if you have any worsening symptoms such as worsening swelling. Is patient prescribed a controlled substance at d/c from ED?: No Referrals: Mariposa Mroris MD [STAFF PHYSICIAN] - 1-2 days Time of Disposition: 14:36
== END 2019-04-08 14:50 | disposition home or self-care (01) ==
LOC: EC 13:11
DX: K04.7 Periapical abscess without sinus (principal); R59.1 Generalized enlarged lymph nodes; F17.200 Nicotine dependence, unspecified, uncomplicated
CPT/HCPCS: 99283

== ENCOUNTER 2019-05-30 14:06 | Emergency (ER) | payer OTHER ==
[2019-05-30 14:14] VITALS: BP 100/58; PULSE 110; RESP 20; TEMP 98.5
[2019-05-30] MEDS ORDERED: KETOROLAC 60 MG/2 ML VIAL IM STA (14:23)
--- NOTE | 2019-05-30 14:26 | ED ---
General Adult HPI - General Chief complaint: Neck Pain/Injury Stated complaint: Hand Injury & Throat Pain Time Seen by Provider: 05/30/19 14:17 Source: patient Mode of arrival: ambulatory Limitations: no limitations - History of Present Illness Initial comments: Patient is a 34-year-old female presenting to the emergency department with 2 separate complaints. Patient states she has been having right sided jaw pain for the last 3 days that she loses secondary to a bad tooth. Patient states she had some extra clindamycin at home and has been taking for the past week without improvement. Patient states she is looking for an oral surgeon to take out the remainder of the tooth. Patient denies any fever, chills, nausea, vomiting. Patient's second complaint is right hand pain x 1 day. Patient states she was angry and hit a wood wall and now has right hand pain. Patient denies any previous surgeries or injuries to that hand. Patient has no other complaints at this time. Upon arrival to ER, patient is slightly tachycardia at 110, rest of vital signs are stable. - Related Data Previous Rx's Medication Instructions Recorded Penicillin V Potassium [Pen Vee K] 500 mg PO QID 10 Days #40 tablet 05/30/19 Allergies Allergy/AdvReac Type Severity Reaction Status Date / Time No Known Allergies Allergy Verified 05/30/19 14:14 Review of Systems ROS Statement: Those systems with pertinent positive or pertinent negative responses have been documented in the HPI. ROS Other: All systems not noted in ROS Statement are negative. Past Medical History Past Medical History: No Reported History Additional Past Medical History / Comment(s): 4-5 bulging disc, back pain, migraines, History of Any Multi-Drug Resistant Organisms: None Reported Past Surgical History: Orthopedic Surgery Additional Past Surgical History / Comment(s): right knee, ACL right, Past Anesthesia/Blood Transfusion Reactions: No Reported Reaction Past Psychological History: Anxiety, Depression, PTSD Smoking Status: Current every day smoker Past Alcohol Use History: Rare Past Drug Use History: Marijuana - Past Family History Mother Family Medical History: Cancer, Congestive Heart Failure (CHF) General Exam - General Exam Comments Initial Comments: GENERAL: Well-appearing, well-nourished and in no acute distress. HEAD: Atraumatic, normocephalic. EYES: Pupils equal round and reactive to light, extraocular movements intact, sclera anicteric, conjunctiva are normal. ENT: TMs normal, nares patent, oropharynx clear without exudates. Patient has mild erythema of the right lower gumline and pain with palpation, as well as a fractured tooth in the back, #32. No abscess seen at this time. Moist mucous membranes. NECK: Normal range of motion, supple without lymphadenopathy or JVD. LUNGS: Breath sounds clear to auscultation bilaterally and equal. No wheezes rales or rhonchi. HEART: Slightly tachycardia rate and rhythm without murmurs, rubs or gallops. ABDOMEN: Soft, nontender, normoactive bowel sounds. No guarding, no rebound. No masses appreciated. : Deferred EXTREMITIES: Patient has pain with palpation over her right fourth MCP joint. Patient has mild bruising over the same spot. No swelling of the hand. Normal range of motion of the right hand. No clubbing or cyanosis. NEUROLOGICAL: Cranial nerves II through XII grossly intact. Normal speech, normal gait. PSYCH: Normal mood, normal affect. SKIN: Warm, Dry, normal turgor, no rashes or lesions noted. Limitations: no limitations Course Vital Signs 05/30/19 14:12 Temperature 98.5 F Pulse Rate 110 H Respiratory 20 Rate Blood Pressure 100/58 O2 Sat by Pulse 99 Oximetry Medical Decision Making - Medical Decision Making Patient is a 34-year-old female presenting with right hand pain secondary to hitting a brick wall yesterday as well as 3 days of right lower jaw pain secondary to a fractured tooth. Patient denies any fever, chills. Patient states she had some extra clindamycin at home and did take that for approximately 5 days without improvement. Patient does have an appointment to see an oral surgeon coming up the next month. On exam patient has a fractured tooth in the lower right, #32. No signs of an abscess. Patient's right hand has bruising and pain over the fourth MCP joint. No swelling. X-rays reveal no acute fractures or dislocations. Patient will be started on penicillin VK for possible dental infection. Patient will use ice and motion on hand. Patient is stable for discharge at this time. Vital signs are stable. Return parameters were discussed with the patient she verbalized understanding. Case discussed with Dr. Hogan. Disposition Clinical Impression: Right hand pain, Dental abscess Disposition: HOME SELF-CARE Condition: Stable Instructions (If sedation given, give patient instructions): Dental Abscess (ED), Contusion in Adults (ED) Additional Instructions: Please return to the Emergency Department if symptoms worsen or any other concerns. Use ice and Motrin for hand pain. Follow-up with dentist as soon as possible for dental pain. Prescriptions: Penicillin V Potassium [Pen Vee K] 500 mg PO QID 10 Days #40 tablet Is patient prescribed a controlled substance at d/c from ED?: No Referrals: None,Stated [Primary Care Provider] - 1-2 days
--- NOTE | 2019-05-30 15:03 | XR ---
EXAMINATION TYPE: XR hand complete RT DATE OF EXAM: 05/30/2019 COMPARISON: NONE HISTORY: 34-year-old female with pain after punching injury TECHNIQUE: 07/01/2016 FINDINGS: No acute fracture, subluxation, or dislocation. Joint spaces throughout are maintained. IMPRESSION: No acute osseous abnormality seen.
== END 2019-05-30 15:12 | disposition home or self-care (01) ==
LOC: EC 14:06
DX: M79.641 Pain in right hand (principal); K04.7 Periapical abscess without sinus; S02.5XXA Fracture of tooth (traumatic), initial encounter for closed fracture; F17.200 Nicotine dependence, unspecified, uncomplicated; X58.XXXA Exposure to other specified factors, initial encounter
CPT/HCPCS: 73130; 99283; 96372; J1885

== ENCOUNTER 2019-06-02 08:59 | Observation (INO) | payer OTHER ==
[2019-06-02] MEDS ORDERED: SODIUM CHLORIDE 0.9% 1,000 ML IV STA (10:13)
[2019-06-02] MEDS ORDERED: KETOROLAC 30 MG/ML 1 ML VIAL IVP STA (10:13)
--- NOTE | 2019-06-02 11:29 | CT ---
EXAMINATION TYPE: CT soft tissue neck w con DATE OF EXAM: 06/02/2019 COMPARISON: 03/21/2018 HISTORY: 34 year-old female right jaw swelling, history of dental infection, dysphagia. Neck pain TECHNIQUE: Contiguous axial scanning of the soft tissues of the neck performed with IV Contrast, madeleine ent injected with 100 ml mL of Isovue 300. Coronal/sagittal reconstructions performed. CT DLP: 170.2 mGycm Automated exposure control for dose reduction was used. FINDINGS: Leftward nasal septal deviation. Visualized paranasal sinuses are clear. Nasopharynx appears clear. Minimal calcification in the bilateral palatine tonsils are unchanged sugg esting sequela of prior infection. Moderate bilateral palatine tonsillar hypertrophy. Oropharynx otherwise clear. Epiglottis and prevertebral soft tissues normal. Glottic and subglottic structures as well as the tracheal column and visualized upper lungs are clear . Parotid glands are mildly atrophic. Submandibular and thyroid glands appear satisfactory. A few scattered prominent but not enlarged cervical lymph nodes measure up to 8 mm. Numerous borderli ne sized right submandibular space lymph nodes measure up to 8 mm. There appears to be a large cavity of the right third mandibular molar with complete erosion of the c rown. Refer to sagittal image 38 and axial image 40. No sizable periapical lucency is identified. Slight asymmetric thickening of the right platysma muscle below the jaw, refer to axial image 31. Ass ociated fat stranding in the submandibular space on the right. IMPRESSION: 1. MILD TO MODERATE INFLAMMATORY CHANGE IN THE RIGHT SUBMANDIBULAR SPACE WITH ASYMMETRIC INFLAMMATORY THICKENING OF THE RIGHT PLATYSMA MUSCLE. REACTIVE RIGHT SUBMANDIBULAR LYMPH NODES MEASURING UP TO 8 MM. CORRELATE FOR CELLULITIS. 2. AN ODONTOGENIC ORIGIN IS POSSIBLE GIVEN A LARGE CAVITY AND COMPLETE EROSION OF THE CROWN OF THE RI GHT THIRD MANDIBULAR MOLAR.
--- NOTE | 2019-06-02 11:31 | ED ---
Neck Injury/Pain HPI - General Source: RN notes reviewed, old records reviewed Mode of arrival: ambulatory Limitations: no limitations <Evi Mcclain - Last Filed: 06/02/19 13:23> <Mary Houston - Last Filed: 06/09/19 13:46> - General Chief Complaint: Neck Pain/Injury Stated Complaint: neck pain Time Seen by Provider: 06/02/19 09:48 - History of Present Illness Initial Comments: Patient is a 34-year-old female presents emergency department due to right-sided neck and swelling. Was diagnosed with a dental infection started on Pen-Vee K 3 days ago. She is also been taking clindamycin that she's had home from previous infections. Patient isn't taking both of these antibiotics but continued to have somewhat swelling and pain into the right side of her neck. She is not diabetic. (Evi Mcclain) - Related Data Home Medications Medication Instructions Recorded Confirmed Acetaminophen [Tylenol Extra 1,500 mg PO BID PRN 06/02/19 06/02/19 Strength] Previous Rx's Medication Instructions Recorded Nicotine 14Mg/24Hr Patch [Habitrol] 1 patch TRANSDERM DAILY #30 patch 06/03/19 Allergies Allergy/AdvReac Type Severity Reaction Status Date / Time No Known Allergies Allergy Verified 06/02/19 09:22 Review of Systems ROS Other: All systems not noted in ROS Statement are negative. <Evi Mcclain - Last Filed: 06/02/19 13:23> ROS Other: All systems not noted in ROS Statement are negative. <Mary Houston - Last Filed: 06/09/19 13:46> ROS Statement: Those systems with pertinent positive or pertinent negative responses have been documented in the HPI. Past Medical History Past Medical History: No Reported History Additional Past Medical History / Comment(s): 4-5 bulging disc, back pain, migraines, History of Any Multi-Drug Resistant Organisms: None Reported Past Surgical History: Orthopedic Surgery Additional Past Surgical History / Comment(s): right knee, ACL right, Past Anesthesia/Blood Transfusion Reactions: No Reported Reaction Past Psychological History: Anxiety, Depression, PTSD Smoking Status: Current every day smoker Past Alcohol Use History: Rare Past Drug Use History: Marijuana - Past Family History Mother Family Medical History: Cancer, Congestive Heart Failure (CHF) <Evi Mcclain - Last Filed: 06/02/19 13:23> General Exam Limitations: no limitations General appearance: alert, in no apparent distress Head exam: Present: atraumatic, normocephalic, normal inspection Eye exam: Present: normal appearance, PERRL, EOMI. Absent: scleral icterus, conjunctival injection, periorbital swelling ENT exam: Present: normal exam Neck exam: Present: normal inspection, tenderness (Patient has an tenderness and swelling over the right submandibular area. No erythema. No crepitus.). Absent: meningismus, lymphadenopathy Respiratory exam: Present: normal lung sounds bilaterally. Absent: respiratory distress, wheezes, rales, rhonchi, stridor Cardiovascular Exam: Present: regular rate, normal rhythm, normal heart sounds. Absent: systolic murmur, diastolic murmur, rubs, gallop, clicks GI/Abdominal exam: Present: soft, normal bowel sounds. Absent: distended, tenderness, guarding, rebound, rigid Extremities exam: Present: normal inspection, full ROM, normal capillary refill. Absent: tenderness, pedal edema, joint swelling, calf tenderness Back exam: Present: normal inspection Neurological exam: Present: alert, oriented X3, CN II-XII intact Psychiatric exam: Present: normal affect, normal mood Skin exam: Present: warm, dry, intact, normal color. Absent: rash <Evi Mcclain - Last Filed: 06/02/19 13:23> - General Exam Comments Initial Comments: 34-year-old female. Patient is anxious. (Evi Mcclain) Course Vital Signs 06/02/19 06/02/19 09:12 13:09 Temperature 98.3 F Pulse Rate 104 H 76 Respiratory 18 16 Rate Blood Pressure 149/100 145/91 O2 Sat by Pulse 98 98 Oximetry Medical Decision Making - Radiology Data Radiology results: report reviewed <Evi Mcclain - Last Filed: 06/02/19 13:23> - Lab Data Result diagrams: 06/03/19 10:57 06/02/19 10:30 <Mary Houston - Last Filed: 06/09/19 13:46> - Medical Decision Making 34-year-old female presents emergency department today with chief complaint of right-sided neck pain and swelling. She was on gentamicin and pen VK for the past week but the swelling continue to persist. Likely started from dental caries in tooth #34. She denies any dental pain and she has no drainable dental abscess at this time. Patient will be started on IV Unasyn. Patient was admitted for failure of outpatient treatment we'll consult oral surgery. (Evi Mcclain) I was available for consultation in the emergency department. The history and physical exam were done by the midlevel provider. I was consulted for this patient's care. I reviewed the case with the midlevel provider and based on their presentation of the patient, I agree with the assessment, medical decision making and plan of care as documented. I evaluated the patient myself. Due to the failed outpatient therapy, I recommended hospital admission. I discussed the case with Dr. Payan's group who accepted admission of the patient. She was admitted in stable condition. Antibiotics and oral surgery consult was ordered. Chart was dictated using [employer] dictation software. Attempts were made to correct any dictation errors however some typographical errors may persist. (Mary Houston) - Lab Data Lab Results 06/02/19 06/02/19 Range/Units 10:30 10:30 WBC 7.7 (3.8-10.6) k/uL RBC 4.34 (3.80-5.40) m/uL Hgb 13.1 (11.4-16.0) gm/dL Hct 40.9 (34.0-46.0) % MCV 94.4 (80.0-100.0) fL MCH 30.2 (25.0-35.0) pg MCHC 32.0 (31.0-37.0) g/dL RDW 13.3 (11.5-15.5) % Plt Count 227 (150-450) k/uL Neutrophils % 64 % Lymphocytes % 23 % Monocytes % 6 % Eosinophils % 4 % Basophils % 2 % Neutrophils # 4.9 (1.3-7.7) k/uL Lymphocytes # 1.8 (1.0-4.8) k/uL Monocytes # 0.5 (0-1.0) k/uL Eosinophils # 0.3 (0-0.7) k/uL Basophils # 0.1 (0-0.2) k/uL Sodium 140 (137-145) mmol/L Potassium 4.4 (3.5-5.1) mmol/L Chloride 104 (98-107) mmol/L Carbon Dioxide 28 (22-30) mmol/L Anion Gap 8 mmol/L BUN 11 (7-17) mg/dL Creatinine 0.71 (0.52-1.04) mg/dL Est GFR (CKD-EPI)AfAm >90 (>60 ml/min/1.73 sqM) Est GFR (CKD-EPI)NonAf >90 (>60 ml/min/1.73 sqM) Glucose 89 (74-99) mg/dL Calcium 9.2 (8.4-10.2) mg/dL - Radiology Data Mild to moderate symmetry changes in the right submandibular space with asymmetric inflammatory thickening of the right platysma muscle reactive submental her lymph nodes measuring 8 mm. Correlate for cellulitis. Endodontic origin as possible given a large cavity in complete erosion of the crown of the right third mandibular molar. (Evi Mcclain) Disposition Is patient prescribed a controlled substance at d/c from ED?: No Time of Disposition: 13:25 <Evi Mcclain - Last Filed: 06/02/19 13:23> <Mary Houston - Last Filed: 06/09/19 13:46> Clinical Impression: Swelling of mandible, Dental infection, Failure of outpatient treatment Disposition: ADMITTED IP TO THIS HOSP Condition: Stable
[2019-06-02] MEDS ORDERED: methylPREDNISolone SOD SUCCI 125 MG/2 ML VIAL IV STA (11:52)
[2019-06-02] MEDS ORDERED: MORPHINE SULFATE 4 MG/ML SYRINGE IVP STA (11:52)
[2019-06-02] MEDS ORDERED: AMPICILLIN-SULBACTAM 3 GM in SODIUM CHLORIDE 0.9% 100 ML IVPB STA (11:53)
[2019-06-02] MEDS ORDERED: NALOXONE 0.4 MG/ML 1 ML VIAL IV PRN (13:28)
[2019-06-02] MEDS ORDERED: KETOROLAC 30 MG/ML 1 ML VIAL IVP PRN (13:28)
[2019-06-02] MEDS ORDERED: MORPHINE SULFATE 4 MG/ML SYRINGE IV PRN (13:28)
[2019-06-02] MEDS ORDERED: IBUPROFEN 400 MG TAB PO PRN (13:28)
[2019-06-02] MEDS ORDERED: ONDANSETRON 4 MG/2 ML VIAL IVP PRN (13:28)
[2019-06-02] MEDS ORDERED: ACETAMINOPHEN TAB 325 MG TAB PO PRN (13:28)
[2019-06-02 14:10] LABS: Basophils # (A) 0.1 k/uL (0-0.2); Basophils % (A) 2 %; Eosinophils # (A) 0.3 k/uL (0-0.7); Eosinophils % (A) 4 %; HCT 40.9 % (34.0-46.0); HGB 13.1 gm/dL (11.4-16.0); Lymphocytes # (A) 1.8 k/uL (1.0-4.8); Lymphocytes % (A) 23 %; MCH 30.2 pg (25.0-35.0); MCV 94.4 fL (80.0-100.0); Mean Platelet Volume 7.4; Monocytes # (A) 0.5 k/uL (0-1.0); Monocytes % (A) 6 %; Neutrophils # (A) 4.9 k/uL (1.3-7.7); Neutrophils % (A) 64 %; Platelet Count 227 k/uL (150-450); RBC 4.34 m/uL (3.80-5.40); RDW 13.3 % (11.5-15.5); WBC 7.7 k/uL (3.8-10.6)
[2019-06-02 14:15] LABS: African American GFR (CKD) >90 (>60 ml/min/1.73 sqM); Anion Gap 8 mmol/L; Blood Urea Nitrogen 11 mg/dL (7-17); Calcium 9.2 mg/dL (8.4-10.2); Carbon Dioxide 28 mmol/L (22-30); Chloride 104 mmol/L (98-107); Glucose 89 mg/dL (74-99); Potassium 4.4 mmol/L (3.5-5.1); Sodium 140 mmol/L (137-145)
[2019-06-02] MEDS: SODIUM CHLORIDE 0.9% 1,000 ML IV SCH ×2 (14:28→20:29)
[2019-06-02] MEDS: HYDROmorphone 0.5 MG/0.5 ML SYRINGE IVP PRN ×2 (15:37→20:30)
[2019-06-02] MEDS ORDERED: ALPRAZolam 0.25 MG TAB PO PRN (16:21)
[2019-06-02] MEDS ORDERED: HYDROcodone/APAP 5-325MG 1 EACH TAB PO PRN (16:21)
[2019-06-02] MEDS ORDERED: TEMAZEPAM 15 MG CAP PO PRN (16:21)
--- NOTE | 2019-06-02 18:26 | HP ---
HISTORY AND PHYSICAL DATE OF SERVICE: 06/02/2019. CHIEF COMPLAINT: Pain and swelling of the right neck. HISTORY OF PRESENT ILLNESS: This 34-year-old woman with a past medical history of multiple medical problems, including history of anxiety, bipolar depression, PTSD, being followed by no primary physician in the outpatient setting, is complaining of right-sided neck pain and swelling for the last several days. Patient was taking Pen-Vee K in the outpatient setting. Because of lack of improvement, the patient came to [facility] and was admitted for further evaluation and treatment. A soft tissue neck CT scan was done which showed evidence of mild to moderate inflammatory changes in the right submandibular space with asymmetric inflammation and thickening. Submandibular lymph nodes were also noted. Cellulitis was noted. No definite abscess was noted. A large cavity, complete erosion of the crown of the right third mandibular molar was noted. There is no history of any fever, rigor or chills. No history of headache, loss of consciousness, seizures at this time. PAST MEDICAL HISTORY: History of anxiety, bipolar, depression, PTSD. MEDICATIONS: Medications prior to admission include: 1. Pen-Vee K 500 mg p.o. q.i.d. 2. Tylenol 1500 mg b.i.d. p.r.n. ALLERGIES: NONE. FAMILY HISTORY: History of lymphosarcoma in the family. SOCIAL HISTORY: History of smoking. History of THC. History of occasional alcohol. REVIEW OF SYSTEMS: ENT: As mentioned earlier. CARDIOVASCULAR SYSTEM: No angina, palpitations. RESPIRATORY SYSTEM: No cough, hemoptysis. GI: No nausea, vomiting. : No dysuria or retention. NERVOUS SYSTEM: No numbness, weakness. ALLERGY/IMMUNOLOGY: No asthma, hayfever. MUSCULOSKELETAL: As mentioned earlier. HEMATOLOGY/ONCOLOGY: No history of anemia. ENDOCRINE: No history of diabetes, hypothyroidism. CONSTITUTIONAL: As mentioned earlier. DERMATOLOGY: Negative. RHEUMATOLOGY: Negative. PSYCHIATRY: As mentioned earlier. PHYSICAL EXAMINATION: Patient alert and oriented x3. Pulse 84, blood pressure 137/88, respiration 16, temperature 98 degrees, pulse ox 99% on room air. HEENT: Conjunctivae normal. NECK: No jugular venous distention. CARDIOVASCULAR SYSTEM: S1, S2 muffled. RESPIRATORY SYSTEM: Breath sounds diminished at the bases. No rhonchi. No crackles. ABDOMEN: Soft, non-tender. No mass palpable. LEGS: No edema. No swelling. NERVOUS SYSTEM: Higher functions as mentioned earlier. Moves all 4 limbs. No focal motor or sensory deficit. LYMPHATICS: No lymph node palpable in neck, axillae or groin. SKIN: No ulcer, rash, bleeding. JOINTS: No active deforming arthropathy. EXAMINATION OF THE NECK: On the right side there is significant fullness, swelling and tenderness. submandibular lymphadenopathy present. No definite abscess or fluctuance noted. Carious teeth on the mandibular molar noted. LABS: WBC 7.7. BMP noted. ASSESSMENT: 1. Acute right mandibular space cellulitis; rule out abscess. 2. Dental caries of the submandibular molar on the on the right side. 3. History of anxiety, bipolar, depression, post-traumatic stress disorder. 4. History of nicotine dependence. 5. History of tetrahydrocannabinol. 6. History of degenerative joint disease. RECOMMENDATIONS AND DISCUSSION: In this 34-year-old woman who presented with multiple medical issues, at this time I recommend to continue current medications, continue symptomatic treatment. Otherwise, I would recommend broad-spectrum IV antibiotics and oral surgeon consultation. Otherwise, prognosis is guarded because of multiple complex medical issues. The patient is started on IV Unasyn. Further recommendations to follow. I also recommend that the patient follow up with a primary physician closely. MMODL / IJN: [id number] / DELFINA
[2019-06-02] MEDS: HEPARIN SODIUM,PORCINE 5,000 UNIT/ML 1 ML VIAL SQ SCH (20:29)
[2019-06-02] MEDS: NICOTINE 14MG/24HR PATCH TRANSDERM SCH (20:29)
[2019-06-02] MEDS: AMPICILLIN-SULBACTAM 3 GM in SODIUM CHLORIDE 0.9% 100 ML IVPB SCH (21:27)
[2019-06-03] MEDS: HYDROmorphone 0.5 MG/0.5 ML SYRINGE IVP PRN ×4 (00:28→10:52)
[2019-06-03] MEDS: SODIUM CHLORIDE 0.9% 1,000 ML IV SCH (03:23)
[2019-06-03] MEDS: AMPICILLIN-SULBACTAM 3 GM in SODIUM CHLORIDE 0.9% 100 ML IVPB SCH (05:20)
[2019-06-03 06:35] VITALS: BP 131/75; PULSE 80; RESP 16; TEMP 98.4
[2019-06-03] MEDS: HEPARIN SODIUM,PORCINE 5,000 UNIT/ML 1 ML VIAL SQ SCH ×2 (08:01→08:02)
[2019-06-03] MEDS: NICOTINE 14MG/24HR PATCH TRANSDERM SCH (08:01)
[2019-06-03] MEDS ORDERED: PANTOPRAZOLE 40 MG/10 ML VIAL IV SCH (09:00)
[2019-06-03 11:38] LABS: Basophils # (A) 0.1 k/uL (0-0.2); Basophils % (A) 0 %; Eosinophils # (A) 0.1 k/uL (0-0.7); Eosinophils % (A) 1 %; HCT 35.5 % (34.0-46.0); HGB 11.8 gm/dL (11.4-16.0); Lymphocytes # (A) 2.1 k/uL (1.0-4.8); Lymphocytes % (A) 15 %; MCH 31.6 pg (25.0-35.0); MCHC 33.3 g/dL (31.0-37.0); Mean Platelet Volume 7.1; Monocytes # (A) 0.7 k/uL (0-1.0); Monocytes % (A) 5 %; Neutrophils # (A) 10.8 k/uL (1.3-7.7); Neutrophils % (A) 78 %; Platelet Count 207 k/uL (150-450); RBC 3.74 m/uL (3.80-5.40); RDW 13.3 % (11.5-15.5); WBC 13.9 k/uL (3.8-10.6)
--- NOTE | 2019-06-03 13:01 | P.DS ---
Providers Date of admission: 06/02/19 12:42 Expected date of discharge: 06/03/19 Attending physician: Octaviano Payan Consults: 06/02/19 13:28 Consult Physician Stat Consulting Provider: Michael Bennett Consult Reason/Comments: facial swelling, failure outpatient, dental infection Do you want consulting provider notified?: Yes Primary care physician: Stated None Hospital Course: Final diagnosis Acute right mandibular space cellulitis Dental caries of the submandibular molar on the right side History of anxiety, bipolar, depression, posttraumatic stress disorder History of nicotine dependence History of THC use History of degenerative joint disease Discharge disposition Patient is being discharged in a stable condition with guarded prognosis to home and will follow-up in Dr. Bennett's office today as scheduled at [address] Bennett's office and he will arrange for continued antibiotics in the outpatient setting. Total time taken is 35 minutes. History of present illness This is a 34-year-old female was recently admitted for right sided neck pain and swelling for the last several days and was being closely monitored. Patient was on oral antibiotics and last taking Pen-Vee K in the outpatient setting with no real improvement in the swelling continued of the right neck and patient was concerned and came into the hospital. Computed tomography scan of the soft tissue neck shows a large cavity of the right third mandibular molar with complete erosion of the crown with no abscess noted with some reactive right submandibular lymph nodes. Oral surgery saw the patient and made an appointment for 1 PM today in his office for irrigation of the right mandibular space. Spoke with Dr. Bennett's office today and they will arrange for antibiotic coverage upon her discharge. Thus with the patient today about avoiding tobacco use and smoking. Patient currently does not have a primary care provider and referral was given. Patient denies any chest pain, shortness of breath, or palpitations at this time. Patient denies any nausea or vomiting and has been nothing by mouth since last night per Dr. Bennett's recommendations. Patient does have some tenderness of the right neck was swelling but has minimized. Patient has been afebrile. Currently patient's condition is stable and patient will be discharged today and will report to Dr. Bennett's office at 1 PM today. On exam vital signs are stable. Temp is 98.4F, pulse is 80, respirations are 16, blood pressure is 131/75, oxygen saturation is 99% on room air. Cardio S1 and S2 are normal. Respiratory system shows clear to auscultation. Abdomen is soft and nontender. Nervous system shows no focal deficits and gait is steady. The right side of the neck has some swelling and tenderness but has improved since yesterday. Multiple dental caries noted. Please refer to medication reconciliation sheet for a list of medications. Patient Condition at Discharge: Stable Plan - Discharge Summary Discharge Rx Participant: No New Discharge Prescriptions: New Nicotine 14Mg/24Hr Patch [Habitrol] 1 patch TRANSDERM DAILY #30 patch Continue Acetaminophen [Tylenol Extra Strength] 1,500 mg PO BID PRN PRN Reason: Pain Discontinued Penicillin V Potassium [Pen Vee K] 500 mg PO QID 10 Days #40 tablet Discharge Medication List Acetaminophen [Tylenol Extra Strength] 1,500 mg PO BID PRN 06/02/19 [History] Nicotine 14Mg/24Hr Patch [Habitrol] 1 patch TRANSDERM DAILY #30 patch 06/03/19 [Rx] Follow up Appointment(s)/Referral(s): Noe Quiroz MD [REFERRING] - 1 Week (office said pt has to make appt) Michael Bennett DDS [STAFF PHYSICIAN] - 1-2 Days (has appointment in office at 1pm today 06/03/19) Ambulatory/Diagnostic Orders: Complete Blood Count w/diff [LAB.AMB] Time Frame: 2 Days, Location: None Selected Activity/Diet/Wound Care/Special Instructions: Activity limited until follow-up Follow-up with Dr. Bennett today at 1 PM as scheduled Avoid any tobacco use Continue current diet Follow-up with primary care provider upon discharge. Referral given. Discharge Disposition: HOME SELF-CARE
--- NOTE | 2019-06-06 11:13 | CONS ---
CONSULTATION DATE OF CONSULTATION: 06/02/2019 CHIEF COMPLAINT: "I have a toothache." HISTORY OF PRESENT ILLNESS: Patient states that she has had acute pain to the right posterior mandible off and on for a long time. She states that the area is slightly swollen in addition to the insufferable pain. She presented to the [facility] ER for further evaluation and she was admitted for IV antibiotics and possible surgical treatment. PAST MEDICAL HISTORY: Her past medical history is unremarkable. Patient is a smoker. She denies any alcohol abuse or illicit drug use. PHYSICAL EXAMINATION: Reveals the patient to be afebrile and have stable vital signs. Her white count is within normal range. Head and neck examination reveals the patient to have minimal swelling of the right mandible that is barely perceptible. The area is soft and nontender to palpation. There is no other swelling of the face or neck. Intraoral examination reveals root tips of tooth #32 and gross decay of tooth #31. There is no floor of the mouth swelling or vestibular swelling. There is no pharyngeal swelling. There are no other lesions noted. ASSESSMENT: 1. Dental caries of tooth #31 and fragments of tooth #32. 2. Acute pain for dental pulpitis. 3. Abscessed tooth. PLAN: The patient will continue IV antibiotics and then will be n.p.o. past midnight. She will then be discharged on 05/31 and will follow up in my office for surgical management of tooth #31 and #32. MMODL / IJN: [id number] /
== END 2019-06-03 12:13 | disposition home or self-care (01) ==
LOC: EC 08:59 → 4MS4W 12:42
PROVIDERS: ADMIT Hospitalist; ATTEND Hospitalist
DX: L03.221 Cellulitis of neck (principal); K02.9 Dental caries, unspecified; K04.7 Periapical abscess without sinus; K04.01 Reversible pulpitis; M19.90 Unspecified osteoarthritis, unspecified site; F41.9 Anxiety disorder, unspecified; F31.9 Bipolar disorder, unspecified; F43.10 Post-traumatic stress disorder, unspecified; F17.200 Nicotine dependence, unspecified, uncomplicated; Z80.7 Family history of other malignant neoplasms of lymphoid, hematopoietic and related tissues; Z82.49 Family history of ischemic heart disease and other diseases of the circulatory system; Z80.9 Family history of malignant neoplasm, unspecified
CPT/HCPCS: 70491; 80048; 85025; 87040; 96361; 96365; 96366; 96375; 96376; 99285

== ENCOUNTER 2019-10-03 18:42 | Emergency (ER) | payer OTHER ==
[2019-10-03 18:52] VITALS: TEMP 98.1
--- NOTE | 2019-10-03 19:53 | XR ---
EXAMINATION TYPE: XR knee complete RT DATE OF EXAM: 10/03/2019 COMPARISON: NONE HISTORY: Knee pain TECHNIQUE: 3 views FINDINGS: I see no fracture nor dislocation. There are linear defect in the distal femur and proximal tibia related to ligamentous reconstructive surgery. There is no sign of joint effusion. Joint space s are fairly normal. IMPRESSION: Previous surgery. No fracture seen. No significant arthritic disease.
[2019-10-03] MEDS ORDERED: ACET/COD 300 MG/30 MG STARTER PACK 6 TAB BTL PO STA (20:10)
--- NOTE | 2019-10-03 20:10 | ED ---
Lower Extremity Injury HPI - General Chief Complaint: Extremity Injury, Lower Stated Complaint: Fell 2wks ago knee pain Time Seen by Provider: 10/03/19 19:06 Source: patient Mode of arrival: ambulatory Limitations: no limitations - History of Present Illness Initial Comments: 34-year-old female presenting today for chief complaint of right anterior knee pain. Patient states she fell 2 weeks ago on her anterior right knee. Patient states she's had previous ACL injuries and the pain lasted for more than a week she was concerned there could be possible reinjury. Patient denies any significant swelling or redness. Has a fever or general malaise. Patient denies any injury to the hip ankle head neck back. Patient denies any other areas complaints. Patient denies any chest pain shortness of breath upon arrival she appears well no signs acute distress her blood pressure was noted to be elevated. - Related Data Home Medications Medication Instructions Recorded Confirmed Acetaminophen [Tylenol Extra 1,500 mg PO BID PRN 06/02/19 06/02/19 Strength] Previous Rx's Medication Instructions Recorded Nicotine 14Mg/24Hr Patch [Habitrol] 1 patch TRANSDERM DAILY #30 patch 06/03/19 Allergies Allergy/AdvReac Type Severity Reaction Status Date / Time No Known Allergies Allergy Verified 10/03/19 18:52 Review of Systems ROS Statement: Those systems with pertinent positive or pertinent negative responses have been documented in the HPI. ROS Other: All systems not noted in ROS Statement are negative. Past Medical History Past Medical History: No Reported History Additional Past Medical History / Comment(s): tracheobronchitis, low back and cervical pain, 4-5 bulging discs in low back, frequent migraines. History of Any Multi-Drug Resistant Organisms: None Reported Past Surgical History: Orthopedic Surgery Additional Past Surgical History / Comment(s): R knee ACL repair x2 and 5 other arthroscopic surgeries on R knee. Past Anesthesia/Blood Transfusion Reactions: No Reported Reaction Past Psychological History: Anxiety, Bipolar, Depression, PTSD Smoking Status: Current every day smoker Past Alcohol Use History: Rare Past Drug Use History: Marijuana - Past Family History Mother Family Medical History: Cancer Additional Family Medical History / Comment(s): Mother had leiomyosarcoma. Father History Unknown: Yes General Exam - General Exam Comments Initial Comments: General: The patient is awake and alert, in no distress, and does not appear acutely ill. Eye: +3 mm pupils are equal, round and reactive to light, extra-ocular movements are intact. No nystagmus. There is normal conjunctiva bilaterally. No signs of icterus. Ears, nose, mouth and throat: There are moist mucous membranes and no oral lesions. Neck: The neck is supple, there is no tenderness or JVD. Cardiovascular: There is a regular rate and rhythm. No murmur, rub or gallop is appreciated. Respiratory: Lungs are clear to auscultation, respirations are non-labored, breath sounds are equal. No wheezes, stridor, rales, or rhonchi. Gastrointestinal: Soft, non-distended, non-tender abdomen without masses or organomegaly noted. There is no rebound or guarding present. Musculoskeletal: Normal ROM at the 90s bilaterally with tenderness of the right anterior knee no tenderness of the left knee, no nodes back to the knees bilaterally. Strength 5/5. Sensation intact Distal to Injury Site. DP pulses equal bilaterally 2+. Linear scar over the anterior right knee. Tender to palpation over anterior knee no posterior pain or calf pain noted. Neurological: A&O x 3. CN II-XII intact grossly, There are no obvious motor or sensory deficits. Coordination appears grossly intact. Speech is normal. Skin: Skin is warm and dry and no rashes or lesions are noted. No LE edema. Psychiatric: Cooperative, appropriate mood & affect, normal judgment. Limitations: no limitations Course Vital Signs 10/03/19 10/03/19 10/03/19 18:51 20:47 21:37 Temperature 98.1 F 98.1 F Pulse Rate 100 87 Respiratory 20 16 Rate Blood Pressure 155/109 158/110 174/117 O2 Sat by Pulse 100 96 Oximetry 10/03/19 22:23 Temperature Pulse Rate Respiratory Rate Blood Pressure 157/104 O2 Sat by Pulse Oximetry Medical Decision Making - Medical Decision Making 34-year-old female presenting today for chief complaint of right anterior knee pain history of ACL injury. Patient states she has ACL brace at home. XR (-) for acute osseous injury. Able to weight bear and ambulate. Patient was given a dose of pressure medications as her pressures remained elevated despite pain control. I instructed patient to keep a log of blood pressures and follow-up with primary care provider as it is difficult to decipher if this is due to pain medication, life stressors that patient describes in the ER. patient otherwise has no complaints. No CP/SOB, chagnes in urine production. Patient will be discharged with orthopedic follow-up patient is agreeable was instructed to use crutches. Case discussed provider Dr. Weaver who was agreeable to care plan and discharge. Disposition Clinical Impression: Right anterior knee pain, Fall, Elevated blood pressure reading Disposition: HOME SELF-CARE Condition: Good Additional Instructions: Please use medication as discussed. Please follow-up with your surgeon for orthopedics I recommend outpatient MRI please use crutches for ambulation and apply her ACL brace. Follow-up with PCP for blood pressure. Please return to emergency room if the symptoms increase or worsen or for any other concerns. Is patient prescribed a controlled substance at d/c from ED?: No Referrals: None,Stated [Primary Care Provider] - 1-2 days Time of Disposition: 20:05
[2019-10-03 20:48] VITALS: PULSE 87; RESP 16
[2019-10-03] MEDS ORDERED: hydrALAZINE HCL 20 MG/ML 1 ML VIAL IVP STA ×2 (20:55→20:56)
[2019-10-03] MEDS ORDERED: MORPHINE SULFATE 4 MG/ML SYRINGE IVP STA (21:43)
[2019-10-03 22:23] VITALS: BP 157/104
== END 2019-10-03 22:34 | disposition home or self-care (01) ==
LOC: EC 18:42
DX: M25.561 Pain in right knee (principal); R03.0 Elevated blood-pressure reading, without diagnosis of hypertension; F17.200 Nicotine dependence, unspecified, uncomplicated; W19.XXXA Unspecified fall, initial encounter
CPT/HCPCS: 73562; 99283; 96374; 96375; J2270; J0360

== ENCOUNTER 2020-03-04 14:37 | Emergency (ER) | payer OTHER ==
[2020-03-04 14:47] VITALS: TEMP 98.5
[2020-03-04] MEDS ORDERED: ACET/COD 300 MG/30 MG STARTER PACK 6 TAB BTL PO STA (14:55)
--- NOTE | 2020-03-04 15:10 | XR ---
EXAMINATION TYPE: XR hand complete LT DATE OF EXAM: 03/04/2020 CLINICAL HISTORY: Crushing injury 4 days ago with pain. TECHNIQUE: Frontal, lateral and oblique images of the left hand are obtained. COMPARISON: None. FINDINGS: There is no acute fracture/dislocation evident in the left hand. The joint spaces in the l eft hand appear within normal limits. The overlying soft tissue appears unremarkable. IMPRESSION: There is no acute fracture or dislocation in the left hand.
--- NOTE | 2020-03-04 15:20 | ED ---
Upper Extremity HPI - General Chief Complaint: Extremity Injury, Upper Stated Complaint: lt hand injury Time Seen by Provider: 03/04/20 14:50 Source: patient Mode of arrival: ambulatory Limitations: physical limitation - History of Present Illness Initial Comments: 34yo female presenting for left hand pain x 4 days. Patient states that 4 days ago she opened her treadmill when it fell and struck her on the top of her hand near the lateral aspect. Patiet states she can move all digits but that hand is swollen and pain. She denies wrist pain, elbow or shoulder pain denies numbness, tingling, loss of sensation, redness, breaks in the skin. Patient has no additional complaints. Upon arrival patient appears well there is no signs of acute distress. - Related Data Home Medications Medication Instructions Recorded Confirmed Acetaminophen [Tylenol Extra 1,500 mg PO BID PRN 06/02/19 06/02/19 Strength] Previous Rx's Medication Instructions Recorded Nicotine 14Mg/24Hr Patch [Habitrol] 1 patch TRANSDERM DAILY #30 patch 06/03/19 Allergies Allergy/AdvReac Type Severity Reaction Status Date / Time No Known Allergies Allergy Verified 03/04/20 14:47 Review of Systems ROS Statement: Those systems with pertinent positive or pertinent negative responses have been documented in the HPI. ROS Other: All systems not noted in ROS Statement are negative. Past Medical History Past Medical History: No Reported History Additional Past Medical History / Comment(s): tracheobronchitis, low back and cervical pain, 4-5 bulging discs in low back, frequent migraines. History of Any Multi-Drug Resistant Organisms: None Reported Past Surgical History: Orthopedic Surgery Additional Past Surgical History / Comment(s): R knee ACL repair x2 and 5 other arthroscopic surgeries on R knee. Past Anesthesia/Blood Transfusion Reactions: No Reported Reaction Past Psychological History: Anxiety, Bipolar, Depression, PTSD Smoking Status: Current every day smoker Past Alcohol Use History: Rare Past Drug Use History: Marijuana - Past Family History Mother Family Medical History: Cancer Additional Family Medical History / Comment(s): Mother had leiomyosarcoma. Father History Unknown: Yes General Exam - General Exam Comments Initial Comments: General: The patient is awake and alert, in no distress, and does not appear acutely ill. Eye: Pupils are equal, round and reactive to light, extra-ocular movements are intact. No nystagmus. There is normal conjunctiva bilaterally. No signs of icterus. Musculoskeletal: On inspection of hands b/l there is soft tissue swelling on the dorsal aspect of the left hand, none of right. no significant bruising/redness. No snuffbox tenderness. Normal ROM, at the MCP, PIP and DIP joints of the left hand. Strength 5/5. Sensation intact. Radial pulses equal bilaterally 2+. Neurological: A&O x 3. CN II-XII intact, There are no obvious motor or sensory deficits. Coordination appears grossly intact. Speech is normal. Skin: Skin is warm and dry and no rashes or lesions are noted. Psychiatric: Cooperative, appropriate mood & affect, normal judgment. Limitations: physical limitation Course Vital Signs 03/04/20 03/04/20 14:42 15:36 Temperature 98.5 F 98.5 F Pulse Rate 96 90 Respiratory 18 16 Rate Blood Pressure 172/104 150/72 O2 Sat by Pulse 100 98 Oximetry Medical Decision Making - Medical Decision Making [id number] female presenting today for chief complaint of left hand pain. No wrist pain. Soft tissue swelling noted. No snuffbox tenderness. Patient is neurovascularly intact. X-ray negative for osseous injury. This time if this is most likely soft tissue related. There is no evidence of tendon injury. I recommended patient follow-up with primary care provider and if symptoms are persistent to seek orthopedic evaluation. Patient is to rest ice compress the area. Use ibuprofen and Tylenol for pain management. Patient agreeable to this care plan and discharge at this time Disposition Clinical Impression: Hand sprain, Left hand pain, Injury of left hand Disposition: HOME SELF-CARE Condition: Good Instructions (If sedation given, give patient instructions): Hand Sprain (ED) Additional Instructions: Please use medication as discussed. Please follow-up with family doctor in the next 2 days. If pain persistent greater than 1 week seek orthopedic evaluation at attached office or office of preference. Please return to emergency room if the symptoms increase or worsen or for any other concerns. Is patient prescribed a controlled substance at d/c from ED?: No Referrals: None,Stated [Primary Care Provider[facility]2 [facility] David Bonilla MD [STAFF PHYSICIAN] - 1-2 days Time of Disposition: 15:19
[2020-03-04 15:37] VITALS: BP 150/72; PULSE 90; RESP 16
== END 2020-03-04 15:36 | disposition home or self-care (01) ==
LOC: EC 14:37
DX: F17.200 Nicotine dependence, unspecified, uncomplicated (principal); S63.92XA Sprain of unspecified part of left wrist and hand, initial encounter; W21.89XA Striking against or struck by other sports equipment, initial encounter
CPT/HCPCS: 99283

== ENCOUNTER 2020-11-25 12:47 | Emergency (ER) | payer OTHER ==
[2020-11-25 12:56] VITALS: RESP 18; TEMP 98.7
[2020-11-25] MEDS ORDERED: ONDANSETRON 4 MG/2 ML VIAL IVP STA (13:21)
[2020-11-25] MEDS ORDERED: MORPHINE SULFATE 2 MG/ML SYRINGE IVP STA (13:21)
[2020-11-25] MEDS ORDERED: SODIUM CHLORIDE 0.9% 1,000 ML IV STA (13:21)
[2020-11-25 13:36] LABS: Basophils % (A) 1 %; Eosinophils # (A) 0.2 k/uL (0-0.7); Eosinophils % (A) 2 %; HCT 41.6 % (34.0-46.0); HGB 13.9 gm/dL (11.4-16.0); Lymphocytes # (A) 1.3 k/uL (1.0-4.8); Lymphocytes % (A) 19 %; MCHC 33.3 g/dL (31.0-37.0); Mean Platelet Volume 7.5; Monocytes # (A) 0.3 k/uL (0-1.0); Monocytes % (A) 4 %; Neutrophils # (A) 5.1 k/uL (1.3-7.7); Neutrophils % (A) 74 %; Platelet Count 199 k/uL (150-450); RBC 4.47 m/uL (3.80-5.40); RDW 13.3 % (11.5-15.5)
[2020-11-25 13:39] LABS: ALT 22 U/L (4-34); AST 26 U/L (14-36); African American GFR (CKD) >90 (>60 ml/min/1.73 sqM); Albumin 4.1 g/dL (3.5-5.0); Alkaline Phosphatase 75 U/L (38-126); Anion Gap 5 mmol/L; Blood Urea Nitrogen 8 mg/dL (7-17); Calcium 9.1 mg/dL (8.4-10.2); Carbon Dioxide 27 mmol/L (22-30); Chloride 106 mmol/L (98-107); Glucose 112 mg/dL (74-99); Lipase 39 U/L (23-300); Lithium <0.2 mmol/L; Magnesium 1.9 mg/dL (1.6-2.3); Non-African American GFR(CKD) >90 (>60 ml/min/1.73 sqM); Sodium 138 mmol/L (137-145); Total Bilirubin 0.3 mg/dL (0.2-1.3); Total Protein 6.6 g/dL (6.3-8.2)
[2020-11-25 13:55] LABS: INR 0.9 (<1.2); Prothrombin Time 10.1 sec (9.0-12.0)
[2020-11-25 13:56] LABS: Partial Thromboplastin Time 21.6 sec (22.0-30.0)
--- NOTE | 2020-11-25 14:01 | XR ---
EXAMINATION TYPE: XR chest 2V DATE OF EXAM: 11/25/2020 COMPARISON: 08/07/2016 HISTORY: 35-year-old female with chest pain TECHNIQUE: PA and lateral views FINDINGS: The cardiomediastinal silhouette, aorta, and pulmonary vasculature are within normal limits. Lungs an d pleural spaces are clear. IMPRESSION: No acute cardiopulmonary process.
[2020-11-25 14:44] VITALS: BP 139/87; PULSE 72
--- NOTE | 2020-11-25 14:49 | ED ---
General Adult HPI - General Chief complaint: Chest Pain Stated complaint: Dyspnea Time Seen by Provider: 11/25/20 12:49 Source: EMS Mode of arrival: EMS Limitations: no limitations - History of Present Illness Initial comments: 35-year-old female patient presents to the emergency department today for evaluation of shortness of breath and fatigue. States she was having some mild chest discomfort with this. Denies any radiation of the pain through to her back. States the pain as a slight ache throughout her chest. States that she did feel winded especially with activity today. States she's been sleeping more than usual for the last 2 days. Denies any cough or congestion. Denies fever or chills. Denies any dizziness or weakness. States she did start taking lithium 2 weeks ago. She does smoke cigarettes. Denies history of diabetes, high cholesterol, states she has been told she has elevated blood pressure in the past but she has not on any medication for this. Patient denies any recent rash, cough, abdominal pain, nausea, vomiting, diarrhea, constipation, back pain, hematuria, dysuria, urinary urgency, urinary frequency, headache, visual changes, or any other complaints. - Related Data Home Medications Medication Instructions Recorded Confirmed Acetaminophen [Tylenol Extra 1,500 mg PO BID PRN 06/02/19 06/02/19 Strength] Previous Rx's Medication Instructions Recorded Nicotine 14Mg/24Hr Patch [Habitrol] 1 patch TRANSDERM DAILY #30 patch 06/03/19 Allergies Allergy/AdvReac Type Severity Reaction Status Date / Time No Known Allergies Allergy Verified 11/25/20 12:50 Review of Systems ROS Statement: Those systems with pertinent positive or pertinent negative responses have been documented in the HPI. ROS Other: All systems not noted in ROS Statement are negative. Past Medical History Past Medical History: Hypertension Additional Past Medical History / Comment(s): tracheobronchitis, low back and cervical pain, 4-5 bulging discs in low back, frequent migraines. History of Any Multi-Drug Resistant Organisms: None Reported Past Surgical History: Orthopedic Surgery Additional Past Surgical History / Comment(s): R knee ACL repair x2 and 5 other arthroscopic surgeries on R knee. Past Anesthesia/Blood Transfusion Reactions: No Reported Reaction Past Psychological History: Anxiety, Bipolar, Depression, PTSD Smoking Status: Current every day smoker Past Alcohol Use History: Rare Past Drug Use History: Marijuana - Past Family History Mother Family Medical History: Cancer Additional Family Medical History / Comment(s): Mother had leiomyosarcoma. Father History Unknown: Yes General Exam Limitations: no limitations General appearance: alert, in no apparent distress, other (This is a well-developed, well-nourished adult female patient in no acute distress. Vital signs upon presentation are temperature 98.7F, pulse 90, respirations 18, blood pressure 153/98, pulse ox 98% on room air.) Eye exam: Present: normal appearance, PERRL, EOMI. Absent: scleral icterus, conjunctival injection, periorbital swelling ENT exam: Present: normal exam, normal oropharynx, mucous membranes moist Respiratory exam: Present: normal lung sounds bilaterally. Absent: respiratory distress, wheezes, rales, rhonchi, stridor Cardiovascular Exam: Present: regular rate, normal rhythm, normal heart sounds. Absent: systolic murmur, diastolic murmur, rubs, gallop, clicks GI/Abdominal exam: Present: soft, normal bowel sounds. Absent: distended, tenderness, guarding, rebound, rigid Neurological exam: Present: alert, oriented X3, CN II-XII intact Psychiatric exam: Present: normal affect, normal mood Skin exam: Present: warm, dry, intact, normal color. Absent: rash Course Vital Signs 11/25/20 11/25/20 12:47 14:43 Temperature 98.7 F Pulse Rate 90 72 Respiratory 18 18 Rate Blood Pressure 153/98 139/87 O2 Sat by Pulse 98 98 Oximetry EKG Findings - EKG Comments: EKG Findings:: EKG obtained at 1250 normal sinus rhythm with a ventricular rate 84, LA interval 122, QRS duration 92, QT 400, QTC 472. No evidence of ST elevation or depression. Medical Decision Making - Medical Decision Making 35-year-old female patient presents to the emergency department today for evaluation of shortness of breath, chest discomfort, lethargy. Physical examination is unremarkable. Lungs are clear to auscultation with good air movement. She is in no respiratory distress. Vital signs are unremarkable. Labs reviewed and are unremarkable. Troponin is negative. TM is less than therapeutic. Patient has no risk factors for DVT/PE. She will be discharged to follow-up with her primary care physician for recheck in 1-2 days. Return parameters were discussed in detail. She verbalizes understanding and agrees with this plan. Case discussed with my attending Dr. Zapata. - Lab Data Result diagrams: 11/25/20 13:07 11/25/20 13:07 Lab Results 11/25/20 11/25/20 11/25/20 Range/Units 13:07 13:07 13:07 WBC 7.0 (3.8-10.6) k/uL RBC 4.47 (3.80-5.40) m/uL Hgb 13.9 (11.4-16.0) gm/dL Hct 41.6 (34.0-46.0) % MCV 93.0 (80.0-100.0) fL MCH 31.0 (25.0-35.0) pg MCHC 33.3 (31.0-37.0) g/dL RDW 13.3 (11.5-15.5) % Plt Count 199 (150-450) k/uL MPV 7.5 Neutrophils % 74 % Lymphocytes % 19 % Monocytes % 4 % Eosinophils % 2 % Basophils % 1 % Neutrophils # 5.1 (1.3-7.7) k/uL Lymphocytes # 1.3 (1.0-4.8) k/uL Monocytes # 0.3 (0-1.0) k/uL Eosinophils # 0.2 (0-0.7) k/uL Basophils # 0.0 (0-0.2) k/uL PT 10.1 (9.0-12.0) sec INR 0.9 (<1.2) APTT 21.6 L (22.0-30.0) sec Sodium 138 (137-145) mmol/L Potassium 4.0 (3.5-5.1) mmol/L Chloride 106 (98-107) mmol/L Carbon Dioxide 27 (22-30) mmol/L Anion Gap 5 mmol/L BUN 8 (7-17) mg/dL Creatinine 0.70 (0.52-1.04) mg/dL Est GFR (CKD-EPI)AfAm >90 (>60 ml/min/1.73 sqM) Est GFR (CKD-EPI)NonAf >90 (>60 ml/min/1.73 sqM) Glucose 112 H (74-99) mg/dL Calcium 9.1 (8.4-10.2) mg/dL Magnesium 1.9 (1.6-2.3) mg/dL Total Bilirubin 0.3 (0.2-1.3) mg/dL AST 26 (14-36) U/L ALT 22 (4-34) U/L Alkaline Phosphatase 75 (38-126) U/L Troponin I (0.000-0.034) ng/mL Total Protein 6.6 (6.3-8.2) g/dL Albumin 4.1 (3.5-5.0) g/dL Lipase 39 (23-300) U/L Urine HCG, Qual (Not Detectd) Wilsey <0.2 mmol/L Coronavirus (PCR) (Not Detectd) 11/25/20 11/25/20 11/25/20 Range/Units 13:07 13:45 13:45 WBC (3.8-10.6) k/uL RBC (3.80-5.40) m/uL Hgb (11.4-16.0) gm/dL Hct (34.0-46.0) % MCV (80.0-100.0) fL MCH (25.0-35.0) pg MCHC (31.0-37.0) g/dL RDW (11.5-15.5) % Plt Count (150-450) k/uL MPV Neutrophils % % Lymphocytes % % Monocytes % % Eosinophils % % Basophils % % Neutrophils # (1.3-7.7) k/uL Lymphocytes # (1.0-4.8) k/uL Monocytes # (0-1.0) k/uL Eosinophils # (0-0.7) k/uL Basophils # (0-0.2) k/uL PT (9.0-12.0) sec INR (<1.2) APTT (22.0-30.0) sec Sodium (137-145) mmol/L Potassium (3.5-5.1) mmol/L Chloride (98-107) mmol/L Carbon Dioxide (22-30) mmol/L Anion Gap mmol/L BUN (7-17) mg/dL Creatinine (0.52-1.04) mg/dL Est GFR (CKD-EPI)AfAm (>60 ml/min/1.73 sqM) Est GFR (CKD-EPI)NonAf (>60 ml/min/1.73 sqM) Glucose (74-99) mg/dL Calcium (8.4-10.2) mg/dL Magnesium (1.6-2.3) mg/dL Total Bilirubin (0.2-1.3) mg/dL AST (14-36) U/L ALT (4-34) U/L Alkaline Phosphatase (38-126) U/L Troponin I <0.012 (0.000-0.034) ng/mL Total Protein (6.3-8.2) g/dL Albumin (3.5-5.0) g/dL Lipase (23-300) U/L Urine HCG, Qual Not Detected (Not Detectd) Wilsey mmol/L Coronavirus (PCR) Not Detected (Not Detectd) - Radiology Data Radiology results: report reviewed, image reviewed Two-view x-ray of the chest is obtained. Report is reviewed in its entirety. Impression by Dr. Villalobos shows no acute cardio pulmonary process. Disposition Clinical Impression: Chest pain, Shortness of breath Disposition: HOME SELF-CARE Condition: Good Instructions (If sedation given, give patient instructions): Chest Pain (ED), Shortness of Breath (ED) Additional Instructions: Rest. Follow-up through primary care physician for recheck in 1-2 days. Return to the emergency department for any new, worsening, or concerning symptoms. Is patient prescribed a controlled substance at d/c from ED?: No Referrals: None,Stated [Primary Care Provider] - 1-2 days Time of Disposition: 14:49
== END 2020-11-25 15:06 | disposition home or self-care (01) ==
LOC: EC 12:47
DX: R07.9 Chest pain, unspecified (principal); R06.02 Shortness of breath; F17.210 Nicotine dependence, cigarettes, uncomplicated; Z20.822 Contact with and (suspected) exposure to COVID-19
CPT/HCPCS: 36415; 93005; 80053; 83690; 80178; 83735; 84484; 85025; 85610; 85730; 81025; 87635; 71046; 99285; 96374; 96375; 96361; J2405; J2270; 99284

== ENCOUNTER 2021-01-23 12:05 | Emergency (ER) | payer OTHER ==
[2021-01-23 12:59] LABS: Basophils # (A) 0.1 k/uL (0-0.2); Basophils % (A) 1 %; Eosinophils # (A) 0.3 k/uL (0-0.7); Eosinophils % (A) 4 %; HGB 13.4 gm/dL (11.4-16.0); Lymphocytes # (A) 1.5 k/uL (1.0-4.8); Lymphocytes % (A) 20 %; MCH 31.5 pg (25.0-35.0); MCHC 34.3 g/dL (31.0-37.0); MCV 91.7 fL (80.0-100.0); Mean Platelet Volume 7.1; Monocytes # (A) 0.3 k/uL (0-1.0); Monocytes % (A) 4 %; Neutrophils # (A) 5.3 k/uL (1.3-7.7); Neutrophils % (A) 70 %; Platelet Count 198 k/uL (150-450); RBC 4.26 m/uL (3.80-5.40); RDW 13.6 % (11.5-15.5); WBC 7.5 k/uL (3.8-10.6)
[2021-01-23 13:14] LABS: Partial Thromboplastin Time 25.9 sec (22.0-30.0); Prothrombin Time 10.6 sec (9.0-12.0)
[2021-01-23 13:15] LABS: ALT 10 U/L (4-34); AST 21 U/L (14-36); African American GFR (CKD) >90 (>60 ml/min/1.73 sqM); Albumin 4.2 g/dL (3.5-5.0); Alkaline Phosphatase 74 U/L (38-126); Anion Gap 5 mmol/L; Blood Urea Nitrogen 11 mg/dL (7-17); Calcium 9.1 mg/dL (8.4-10.2); Carbon Dioxide 27 mmol/L (22-30); Chloride 104 mmol/L (98-107); Glucose 96 mg/dL (74-99); Non-African American GFR(CKD) >90 (>60 ml/min/1.73 sqM); Potassium 3.9 mmol/L (3.5-5.1); Sodium 136 mmol/L (137-145); Total Bilirubin 0.3 mg/dL (0.2-1.3); Total Protein 6.7 g/dL (6.3-8.2)
[2021-01-23] MEDS ORDERED: ASPIRIN 81 MG PO STA (13:18)
[2021-01-23] MEDS ORDERED: NITROGLYCERIN OINT 1 INCH/GM PACKET TOPICAL STA (13:18)
--- NOTE | 2021-01-23 13:22 | ED ---
General Adult HPI - General Chief complaint: Recheck/Abnormal Lab/Rx Stated complaint: High BP Time Seen by Provider: 01/23/21 13:00 Source: patient, RN notes reviewed Mode of arrival: wheelchair Limitations: no limitations - History of Present Illness Initial comments: Patient is a pleasant 35-year-old female presenting to the emergency Department with chest tightness. Onset of symptoms was this morning. Patient has checked her blood pressure several times with pressures as high as 220/119. Patient was in the emergency Department a couple months ago and told she had or lying blood pressure. Patient has not otherwise been in this. Patient does have some mild associated dyspnea. No niacin nausea. No diaphoresis. No radiation of chest tightness. Chest tightness has been and remains mild. - Related Data Home Medications Medication Instructions Recorded Confirmed Acetaminophen [Tylenol Extra 1,500 mg PO BID PRN 06/02/19 06/02/19 Strength] Previous Rx's Medication Instructions Recorded Nicotine 14Mg/24Hr Patch [Habitrol] 1 patch TRANSDERM DAILY #30 patch 06/03/19 Metoprolol Succinate (ER) [Toprol 25 mg PO DAILY #7 tab 01/23/21 XL] Allergies Allergy/AdvReac Type Severity Reaction Status Date / Time No Known Allergies Allergy Verified 01/23/21 12:30 Review of Systems ROS Statement: Those systems with pertinent positive or pertinent negative responses have been documented in the HPI. ROS Other: All systems not noted in ROS Statement are negative. Constitutional: Denies: fever Eyes: Denies: eye pain ENT: Denies: ear pain Respiratory: Denies: cough Cardiovascular: Reports: as per HPI, chest pain Endocrine: Denies: fatigue Gastrointestinal: Denies: abdominal pain Genitourinary: Denies: dysuria Musculoskeletal: Denies: back pain Skin: Denies: rash Neurological: Denies: weakness Past Medical History Past Medical History: Hypertension Additional Past Medical History / Comment(s): tracheobronchitis, low back and cervical pain, 4-5 bulging discs in low back, frequent migraines. History of Any Multi-Drug Resistant Organisms: None Reported Past Surgical History: Orthopedic Surgery Additional Past Surgical History / Comment(s): R knee ACL repair x2 and 5 other arthroscopic surgeries on R knee. Past Anesthesia/Blood Transfusion Reactions: No Reported Reaction Past Psychological History: Anxiety, Bipolar, Depression, PTSD Smoking Status: Current every day smoker Past Alcohol Use History: Rare Past Drug Use History: Marijuana - Past Family History Mother Family Medical History: Cancer Additional Family Medical History / Comment(s): Mother had leiomyosarcoma. Father History Unknown: Yes General Exam Limitations: no limitations General appearance: alert, in no apparent distress Head exam: Present: normocephalic Eye exam: Present: normal appearance ENT exam: Present: normal oropharynx Neck exam: Present: normal inspection Respiratory exam: Present: normal lung sounds bilaterally. Absent: chest wall tenderness Cardiovascular Exam: Present: regular rate, normal rhythm, normal heart sounds Expanded Peripheral pulses: 2+: Radial (R), Radial (L), Posterior Tibialis (R), Posterior Tibialis (L) GI/Abdominal exam: Present: soft. Absent: tenderness Extremities exam: Present: normal inspection. Absent: pedal edema, calf tenderness Neurological exam: Present: alert Psychiatric exam: Present: normal affect, normal mood Skin exam: Present: normal color Course Vital Signs 01/23/21 01/23/21 12:26 13:26 Temperature 97.9 F Pulse Rate 87 92 Respiratory 20 18 Rate Blood Pressure 192/112 194/109 O2 Sat by Pulse 100 98 Oximetry EKG Findings - EKG Comments: EKG Findings:: Normal sinus rhythm at 81. OK 114. QRS 94. QT 380. QTC 441. Normal axis. LVH. No acute ST change. Medical Decision Making - Medical Decision Making Patient reevaluated and resting comfortably in bed. Patient updated on results. Patient remains hypertensive. Patient is recommended admission for further evaluation regarding her heart and high blood pressure. Patient is made aware that heart disease and heart attack has not been ruled out at this time. Patient refuses admission. Patient does demonstrate medical decision making. Patient states she does have an appointment in 12 days with qc lab technician. Patient is advised sooner follow-up and follow-up with primary care physician in the next day or 2. Patient is made aware that she would need to leave AGAINST MEDICAL ADVICE and that she is highly recommended to stay in the hospital. Patient will be given a few days for blood pressure medication until reevaluation. - Lab Data Result diagrams: 01/23/21 12:41 01/23/21 12:41 Lab Results 01/23/21 01/23/21 01/23/21 Range/Units 12:41 12:41 12:41 WBC 7.5 (3.8-10.6) k/uL RBC 4.26 (3.80-5.40) m/uL Hgb 13.4 (11.4-16.0) gm/dL Hct 39.0 (34.0-46.0) % MCV 91.7 (80.0-100.0) fL MCH 31.5 (25.0-35.0) pg MCHC 34.3 (31.0-37.0) g/dL RDW 13.6 (11.5-15.5) % Plt Count 198 (150-450) k/uL MPV 7.1 Neutrophils % 70 % Lymphocytes % 20 % Monocytes % 4 % Eosinophils % 4 % Basophils % 1 % Neutrophils # 5.3 (1.3-7.7) k/uL Lymphocytes # 1.5 (1.0-4.8) k/uL Monocytes # 0.3 (0-1.0) k/uL Eosinophils # 0.3 (0-0.7) k/uL Basophils # 0.1 (0-0.2) k/uL PT 10.6 (9.0-12.0) sec INR 1.0 (<1.2) APTT 25.9 (22.0-30.0) sec D-Dimer (<0.60) mg/L FEU Sodium 136 L (137-145) mmol/L Potassium 3.9 (3.5-5.1) mmol/L Chloride 104 (98-107) mmol/L Carbon Dioxide 27 (22-30) mmol/L Anion Gap 5 mmol/L BUN 11 (7-17) mg/dL Creatinine 0.76 (0.52-1.04) mg/dL Est GFR (CKD-EPI)AfAm >90 (>60 ml/min/1.73 sqM) Est GFR (CKD-EPI)NonAf >90 (>60 ml/min/1.73 sqM) Glucose 96 (74-99) mg/dL Calcium 9.1 (8.4-10.2) mg/dL Total Bilirubin 0.3 (0.2-1.3) mg/dL AST 21 (14-36) U/L ALT 10 (4-34) U/L Alkaline Phosphatase 74 (38-126) U/L Troponin I (0.000-0.034) ng/mL Total Protein 6.7 (6.3-8.2) g/dL Albumin 4.2 (3.5-5.0) g/dL 01/23/21 01/23/21 Range/Units 12:41 12:41 WBC (3.8-10.6) k/uL RBC (3.80-5.40) m/uL Hgb (11.4-16.0) gm/dL Hct (34.0-46.0) % MCV (80.0-100.0) fL MCH (25.0-35.0) pg MCHC (31.0-37.0) g/dL RDW (11.5-15.5) % Plt Count (150-450) k/uL MPV Neutrophils % % Lymphocytes % % Monocytes % % Eosinophils % % Basophils % % Neutrophils # (1.3-7.7) k/uL Lymphocytes # (1.0-4.8) k/uL Monocytes # (0-1.0) k/uL Eosinophils # (0-0.7) k/uL Basophils # (0-0.2) k/uL PT (9.0-12.0) sec INR (<1.2) APTT (22.0-30.0) sec D-Dimer 0.18 (<0.60) mg/L FEU Sodium (137-145) mmol/L Potassium (3.5-5.1) mmol/L Chloride (98-107) mmol/L Carbon Dioxide (22-30) mmol/L Anion Gap mmol/L BUN (7-17) mg/dL Creatinine (0.52-1.04) mg/dL Est GFR (CKD-EPI)AfAm (>60 ml/min/1.73 sqM) Est GFR (CKD-EPI)NonAf (>60 ml/min/1.73 sqM) Glucose (74-99) mg/dL Calcium (8.4-10.2) mg/dL Total Bilirubin (0.2-1.3) mg/dL AST (14-36) U/L ALT (4-34) U/L Alkaline Phosphatase (38-126) U/L Troponin I <0.012 (0.000-0.034) ng/mL Total Protein (6.3-8.2) g/dL Albumin (3.5-5.0) g/dL - Radiology Data Radiology results: image reviewed (Chest x-ray shows no acute process) Disposition Clinical Impression: Hypertensive urgency, Chest pain Disposition: Left Against Medical Advice Instructions (If sedation given, give patient instructions): Chest Pain (ED), Hypertension (ED) Additional Instructions: You are leaving AGAINST MEDICAL ADVICE. Please follow-up with primary care physician as soon as possible, preferably in the next day or 2. Please follow- up with cardiology, please try to get appointment sooner than scheduled. Return for chest pain, increased blood pressure, persistent high blood pressure, worsening symptoms, difficulty breathing, or any other concerns. Aspirin daily. Prescription has been sent to your pharmacy. Prescriptions: Metoprolol Succinate (ER) [Toprol XL] 25 mg PO DAILY #7 tab Is patient prescribed a controlled substance at d/c from ED?: No Referrals: Krishna Cruz [STAFF PHYSICIAN] - 1-2 days Time of Disposition: 14:51
--- NOTE | 2021-01-23 13:24 | XR ---
EXAMINATION TYPE: XR chest 2V DATE OF EXAM: 01/23/2021 COMPARISON: 11/25/2020 TECHNIQUE: PA and lateral views submitted. HISTORY: Hypertension FINDINGS: The lungs are clear and there is no pneumothorax, pleural effusion, or focal pneumonia. Heart size normal. No overt failure. IMPRESSION: 1. No acute process.
[2021-01-23 13:32] VITALS: RESP 18
[2021-01-23] MEDS ORDERED: LABETALOL 5 MG/ML VIAL MDV IVP STA (14:37)
[2021-01-23] MEDS ORDERED: amLODIPine 5 MG TAB PO STA (14:45)
[2021-01-23 15:08] VITALS: BP 166/110; PULSE 75; TEMP 98.8
== END 2021-01-23 15:07 | disposition left against medical advice (07) ==
LOC: EC 12:05
DX: I16.0 Hypertensive urgency (principal); G43.909 Migraine, unspecified, not intractable, without status migrainosus; F41.9 Anxiety disorder, unspecified; F32.9 Major depressive disorder, single episode, unspecified; F17.200 Nicotine dependence, unspecified, uncomplicated; F12.90 Cannabis use, unspecified, uncomplicated; Z79.899 Other long term (current) drug therapy
CPT/HCPCS: 36415; 71046; 80053; 84484; 85025; 85379; 85610; 85730; 93005; 99285

== ENCOUNTER 2021-02-24 21:18 | Emergency (ER) | payer OTHER ==
[2021-02-24 21:28] VITALS: TEMP 98.3
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
[2021-02-24 21:58] LABS: Basophils # (A) 0.1 k/uL (0-0.2); Basophils % (A) 2 %; Eosinophils # (A) 0.4 k/uL (0-0.7); Eosinophils % (A) 7 %; HCT 35.9 % (34.0-46.0); Lymphocytes # (A) 2.3 k/uL (1.0-4.8); Lymphocytes % (A) 37 %; MCH 30.8 pg (25.0-35.0); MCHC 33.5 g/dL (31.0-37.0); Mean Platelet Volume 7.5; Monocytes # (A) 0.3 k/uL (0-1.0); Monocytes % (A) 5 %; Neutrophils # (A) 3.1 k/uL (1.3-7.7); Neutrophils % (A) 49 %; Platelet Count 214 k/uL (150-450); RBC 3.91 m/uL (3.80-5.40); RDW 13.8 % (11.5-15.5); WBC 6.3 k/uL (3.8-10.6)
[2021-02-24 22:13] LABS: Partial Thromboplastin Time 25.6 sec (22.0-30.0); Prothrombin Time 10.4 sec (9.0-12.0)
[2021-02-24 22:23] LABS: ALT 12 U/L (4-34); African American GFR (CKD) >90 (>60 ml/min/1.73 sqM); Anion Gap 7 mmol/L; Blood Urea Nitrogen 10 mg/dL (7-17); Calcium 9.1 mg/dL (8.4-10.2); Carbon Dioxide 28 mmol/L (22-30); Chloride 103 mmol/L (98-107); Glucose 105 mg/dL (74-99); Non-African American GFR(CKD) >90 (>60 ml/min/1.73 sqM); Sodium 138 mmol/L (137-145); Total Bilirubin 0.3 mg/dL (0.2-1.3)
--- NOTE | 2021-02-24 22:28 | XR ---
EXAMINATION TYPE: XR chest 2V DATE OF EXAM: 02/24/2021 COMPARISON: 01/23/2021 HISTORY: Hypertension TECHNIQUE: 2 views FINDINGS: Heart and mediastinum are normal. Lungs are clear. Diaphragm is normal. Bony thorax is inta ct. IMPRESSION: Normal chest. No change.
[2021-02-24 22:29] LABS: HCG,Qualitative Serum Not Detected
[2021-02-24 22:49] LABS: Potassium 3.7 mmol/L (3.5-5.1)
[2021-02-24 22:50] LABS: AST 29 U/L (14-36); Albumin 3.9 g/dL (3.5-5.0); Alkaline Phosphatase 63 U/L (38-126); Magnesium 1.7 mg/dL (1.6-2.3); Total Protein 6.4 g/dL (6.3-8.2)
[2021-02-25 01:07] VITALS: BP 133/72; PULSE 72; RESP 16
== END 2021-02-25 01:06 ==
LOC: EC 21:18
DX: R07.89 Other chest pain (principal); I10 Essential (primary) hypertension; F17.200 Nicotine dependence, unspecified, uncomplicated
CPT/HCPCS: 36415; 71046; 80053; 83735; 83880; 84484; 84703; 85025; 85610; 85730; 93005; 99285

== ENCOUNTER 2021-07-31 19:41 | Observation (INO) | payer OTHER ==
[2021-07-31] MEDS ORDERED: SODIUM CHLORIDE 0.9% 1,000 ML IV STA ×2 (20:16→21:48)
[2021-07-31] MEDS ORDERED: ACTIVATED CHARCOAL-SORBITOL 50 GM/240 ML BOTTLE PO STA ×2 (20:16→20:20)
[2021-07-31 20:52] LABS: Basophils # (A) 0.1 k/uL (0-0.2); Basophils % (A) 1 %; Eosinophils # (A) 0.2 k/uL (0-0.7); Eosinophils % (A) 2 %; HCT 41.8 % (34.0-46.0); HGB 13.7 gm/dL (11.4-16.0); Lymphocytes # (A) 2.6 k/uL (1.0-4.8); Lymphocytes % (A) 24 %; MCH 31.8 pg (25.0-35.0); MCHC 32.8 g/dL (31.0-37.0); MCV 96.8 fL (80.0-100.0); Mean Platelet Volume 7.6; Monocytes # (A) 0.6 k/uL (0-1.0); Monocytes % (A) 6 %; Neutrophils # (A) 6.9 k/uL (1.3-7.7); Neutrophils % (A) 65 %; Platelet Count 247 k/uL (150-450); RBC 4.32 m/uL (3.80-5.40); RDW 12.8 % (11.5-15.5); WBC 10.5 k/uL (3.8-10.6)
[2021-07-31 21:02] LABS: ALT 14 U/L (4-34); AST 21 U/L (14-36); Acetaminophen <10.0 ug/mL; African American GFR (CKD) >90 (>60 ml/min/1.73 sqM); Albumin 4.2 g/dL (3.5-5.0); Alcohol 20 mg/dL; Alkaline Phosphatase 64 U/L (38-126); Anion Gap 8 mmol/L; Blood Urea Nitrogen 7 mg/dL (7-17); Calcium 9.1 mg/dL (8.4-10.2); Carbon Dioxide 24 mmol/L (22-30); Chloride 107 mmol/L (98-107); Glucose 100 mg/dL (74-99); Lipase 36 U/L (23-300); Non-African American GFR(CKD) >90 (>60 ml/min/1.73 sqM); Potassium 3.5 mmol/L (3.5-5.1); Salicylate <1.0 mg/dL; Sodium 139 mmol/L (137-145); Total Bilirubin 0.3 mg/dL (0.2-1.3); Total Protein 6.7 g/dL (6.3-8.2)
--- NOTE | 2021-07-31 21:50 | XR ---
EXAMINATION TYPE: XR chest 1V portable DATE OF EXAM: 07/31/2021 CLINICAL HISTORY: dyspnea. TECHNIQUE: Portable frontal view of the chest. COMPARISON: 02/24/2021 FINDINGS: The cardiomediastinal silhouette is within normal limits for size. Pulmonary vasculature i s normal. There is no focal air space opacity. No pleural effusion. No pneumothorax seen. No acute d isplaced osseous fracture. IMPRESSION: No acute cardiopulmonary process.
[2021-07-31] MEDS ORDERED: NALOXONE 0.4 MG/ML 1 ML VIAL IV PRN (21:53)
[2021-07-31] MEDS ORDERED: SODIUM CHLORIDE 0.9% 1,000 ML IV SCH (22:00)
[2021-07-31] MEDS ORDERED: LORazepam 2 MG/ML INJ IV STA (22:01)
--- NOTE | 2021-07-31 22:32 | ED ---
General Adult HPI - General Chief complaint: Overdose Stated complaint: Overdose Time Seen by Provider: 07/31/21 20:08 Source: patient, RN notes reviewed, old records reviewed Mode of arrival: ambulatory Limitations: no limitations - History of Present Illness Initial comments: Patient is a 36-year-old female that evaluated when she was placed in a room. She presents after suspected overdose of numerous pills of metoprolol XL as well as amlodipine. She is uncertain how many she took, however states she took maybe half a bottle each of metoprolol XL 50 mg and amlodipine 10 mg. Each bottle had approximately 90 day supply of pills. Patient currently has no acute complaints. States she also drank alcohol and took Xanax earlier. Denies any Tylenol or aspirin use. Denies any abdominal pain, chest pain, weakness, numbness. She is not acute complaint at this time. She states she has been undergoing worsening stressors in life over the last few weeks which triggered her suicide attempt today. Denies any homicidal ideations, attempts, plans. Denies any visual or auditory hallucinations. Patient presented for suicide attempt and antihypertensive overdose.Patient states the ingestion took place approximately 10-15 minutes prior to arrival. - Related Data Home Medications Medication Instructions Recorded Confirmed amLODIPine [Norvasc] 10 mg PO DAILY 07/31/21 07/31/21 Previous Rx's Medication Instructions Recorded Metoprolol Succinate (ER) [Toprol 25 mg PO DAILY #7 tab 01/23/21 XL] Allergies Allergy/AdvReac Type Severity Reaction Status Date / Time No Known Allergies Allergy Verified 07/31/21 21:02 Review of Systems ROS Statement: Those systems with pertinent positive or pertinent negative responses have been documented in the HPI. Review of Systems: CONST: Denies fever EYES: Denies blurry vision ENT: Denies nasal congestion C/V: Denies Chest pain RESP: Denies shortness of breath GI: Denies abdominal pain : Denies dysuria SKIN: Denies rash. MSK: Denies joint pain. NEURO: Denies headache PSYCH: Denies homicidal ideations/plans/attempts. Denies visual or auditory hallucinations. He endorses suicide attempt via overdose with amlodipine 10 mg and metoprolol XL 50 mg, unknown number of pills. ROS Other: All systems not noted in ROS Statement are negative. Past Medical History Past Medical History: Hypertension Additional Past Medical History / Comment(s): tracheobronchitis, low back and cervical pain, 4-5 bulging discs in low back, frequent migraines. History of Any Multi-Drug Resistant Organisms: None Reported Past Surgical History: Orthopedic Surgery Additional Past Surgical History / Comment(s): R knee ACL repair x2 and 5 other arthroscopic surgeries on R knee. Past Anesthesia/Blood Transfusion Reactions: No Reported Reaction Past Psychological History: Anxiety, Bipolar, Depression, PTSD Smoking Status: Current every day smoker Past Alcohol Use History: Rare Past Drug Use History: Marijuana - Past Family History Mother Family Medical History: Cancer Additional Family Medical History / Comment(s): Mother had leiomyosarcoma. Father History Unknown: Yes General Exam - General Exam Comments Initial Comments: General: Appears in no acute distress. HEAD: Normal with no signs of head trauma. EYES: PERRLA, EOMI, conjunctiva normal, no discharge. ENT: Hearing grossly intact, normal oropharynx. RESPIRATORY: Clear breath sounds bilaterally. No wheezes, rales, or rhonchi. C/V: Mildly tachycardic with a regular rhythm. S1 and S2 auscultated. Peripheral pulses are 2+ and intact throughout. ABD: Abd is soft, nontender, nondistended EXT: Normal range of motion, no obvious deformity SKIN: No rashes or lesions observed on exposed skin. NEURO: Alert and oriented x 4. Cranial nerves II-XII intact. No focal sensory or strength deficits. Patient does appear acutely intoxicated with alcohol. Limitations: no limitations Course Vital Signs 07/31/21 19:48 Temperature 97.8 F Pulse Rate 105 H Respiratory 20 Rate Blood Pressure 142/92 O2 Sat by Pulse 100 Oximetry Medical Decision Making - Medical Decision Making Based on the patient's presentation and physical exam, I'm concerned for possib le beta heriberto and calcium channel heriberto overdose. She ingested an unknown number of pills. It is unknown if she took them or not, however she is adamant that she did. She states it was a suicide attempt. Therefore we will administer 65 g of activated charcoal. Toxicology was called and they were in agreement with this plan. They recommended glucose checking, IV fluids, as well as blood pressure monitoring. We will obtain a basic toxicological workup. Elopement and suicide precautions were placed. Patient was in agreement with this plan. She will likely require admission to the hospital with inpatient psychiatry evaluation. Patient's EKG showed no acute changes and sinus tachycardia. Vital signs are stable at this time. She is not showing signs of toxicity, including no signs of hypotension, bradycardia come hypoglycemia. We will continue to monitor. Patient's chest x-ray was unremarkable. Laboratory studies were remarkable for a mildly elevated lactic acid of 2.2, may be secondary to dehydration. Troponin is negative. Current glucose is within normal limits and 100. Remainder the labs are unremarkable. Tylenol level is negative. Patient does have a serum alcohol level of 20. We will repeat a Tylenol level at the 4 hour chacho postingestion. On reevaluation come patient remains unchanged. She is becoming more uncooperative at this time. We discussed that she requires admission to the hospital as well as inpatient psychiatry evaluation. She states she did not take more than her normal dose of antihypertensives at this time. However due to the initial presentation, as well as supper claim suicide attempt due to stressors and overdosing on his medications with "many pills" she will continue to be admitted to the hospital for medical clearance and evaluation. Certification was completed by myself and psychiatric petition was completed by nursing staff. I spoke with the ICU attending, Dr. Clements to inform him of the possible admission of the patient I see if she decompensates. He was in agreement with this plan. He requested that I consult cardiology since that they are aware in case the patient requires pacing. I spoke with Dr. Corcoran who was in agreement with this plan. I spoke with the admitting team under [facility], [place] [facility], who accepted the patient. Patient was frequently reevaluated here in the department. Certification was completed approximately 10 PM. Vital sensory and stable throughout her stay. Patient is admitted to a telemetry bed secondary to her suicide attempt and suspected antihypertensive overdose. At this time, patient is not having signs of toxicity. She received activated charcoal. She remains hemodynamically stable. - Lab Data Result diagrams: 07/31/21 20:48 07/31/21 20:48 Lab Results 07/31/21 07/31/21 07/31/21 Range/Units 20:48 20:48 20:48 WBC 10.5 (3.8-10.6) k/uL RBC 4.32 (3.80-5.40) m/uL Hgb 13.7 (11.4-16.0) gm/dL Hct 41.8 (34.0-46.0) % MCV 96.8 (80.0-100.0) fL MCH 31.8 (25.0-35.0) pg MCHC 32.8 (31.0-37.0) g/dL RDW 12.8 (11.5-15.5) % Plt Count 247 (150-450) k/uL MPV 7.6 Neutrophils % 65 % Lymphocytes % 24 % Monocytes % 6 % Eosinophils % 2 % Basophils % 1 % Neutrophils # 6.9 (1.3-7.7) k/uL Lymphocytes # 2.6 (1.0-4.8) k/uL Monocytes # 0.6 (0-1.0) k/uL Eosinophils # 0.2 (0-0.7) k/uL Basophils # 0.1 (0-0.2) k/uL PT 11.0 (9.0-12.0) sec INR 1.0 (<1.2) Sodium 139 (137-145) mmol/L Potassium 3.5 (3.5-5.1) mmol/L Chloride 107 (98-107) mmol/L Carbon Dioxide 24 (22-30) mmol/L Anion Gap 8 mmol/L BUN 7 (7-17) mg/dL Creatinine 0.78 (0.52-1.04) mg/dL Est GFR (CKD-EPI)AfAm >90 (>60 ml/min/1.73 sqM) Est GFR (CKD-EPI)NonAf >90 (>60 ml/min/1.73 sqM) Glucose 100 H (74-99) mg/dL Plasma Lactic Acid Paul (0.7-2.0) mmol/L Calcium 9.1 (8.4-10.2) mg/dL Total Bilirubin 0.3 (0.2-1.3) mg/dL AST 21 (14-36) U/L ALT 14 (4-34) U/L Alkaline Phosphatase 64 (38-126) U/L Troponin I (0.000-0.034) ng/mL Total Protein 6.7 (6.3-8.2) g/dL Albumin 4.2 (3.5-5.0) g/dL Lipase 36 (23-300) U/L Salicylates <1.0 mg/dL Acetaminophen <10.0 ug/mL Serum Alcohol 20 mg/dL 07/31/21 07/31/21 Range/Units 20:48 20:48 WBC (3.8-10.6) k/uL RBC (3.80-5.40) m/uL Hgb (11.4-16.0) gm/dL Hct (34.0-46.0) % MCV (80.0-100.0) fL MCH (25.0-35.0) pg MCHC (31.0-37.0) g/dL RDW (11.5-15.5) % Plt Count (150-450) k/uL MPV Neutrophils % % Lymphocytes % % Monocytes % % Eosinophils % % Basophils % % Neutrophils # (1.3-7.7) k/uL Lymphocytes # (1.0-4.8) k/uL Monocytes # (0-1.0) k/uL Eosinophils # (0-0.7) k/uL Basophils # (0-0.2) k/uL PT (9.0-12.0) sec INR (<1.2) Sodium (137-145) mmol/L Potassium (3.5-5.1) mmol/L Chloride (98-107) mmol/L Carbon Dioxide (22-30) mmol/L Anion Gap mmol/L BUN (7-17) mg/dL Creatinine (0.52-1.04) mg/dL Est GFR (CKD-EPI)AfAm (>60 ml/min/1.73 sqM) Est GFR (CKD-EPI)NonAf (>60 ml/min/1.73 sqM) Glucose (74-99) mg/dL Plasma Lactic Acid Paul 2.2 H* (0.7-2.0) mmol/L Calcium (8.4-10.2) mg/dL Total Bilirubin (0.2-1.3) mg/dL AST (14-36) U/L ALT (4-34) U/L Alkaline Phosphatase (38-126) U/L Troponin I <0.012 (0.000-0.034) ng/mL Total Protein (6.3-8.2) g/dL Albumin (3.5-5.0) g/dL Lipase (23-300) U/L Salicylates mg/dL Acetaminophen ug/mL Serum Alcohol mg/dL - EKG Data -: EKG Interpreted by Me EKG Comments: 12-lead Electrocardiogram Interpretation Note EKG was reviewed and interpreted by myself. 12-lead ECG performed at 2003 is interpreted by me as revealing sinus tachycardia at a rate of 103 beats per minute. [place] is normal. LA interval is 144 ms, QRS duration is 94 ms, QTc is 466 seconds.. There were no ST or T wave abnormalities to suggest myocardial ischemia or injury. R wave progression across the precordium was satisfactory. By my interpretation this EKG is non-diagnostic for acute ischemia. A comparison of prior EKGs, there are no acute changes. It appears identical to an EKG obtained in February of this year. Critical Care Time Critical Care Time: Yes Total Critical Care Time: 35 Critical Care Time: Upon my evaluation, this patient had a high probability of imminent or life- threatening deterioration due to suicide attempt, beta heriberto and calcium channel heriberto toxicity, which required my direct attention, intervention, and personal management. I have personally provided 35 minutes of critical care time exclusive of time spent on separately billable procedures. Time includes review of laboratory d jose, radiology results, discussion with consultants, and monitoring for potential decompensation. Interventions were performed as documented in my note. Disposition Clinical Impression: Suicide attempt, Suicide attempt by beta heriberto overdose, Calcium channel heriberto overdose, Alcohol use Disposition: ADMITTED IP TO THIS HOSP Condition: Serious Referrals: None,Stated [Primary Care Provider] - 1-2 days
[2021-07-31] MEDS ORDERED: LORazepam 2 MG/ML INJ IM STA (23:18)
--- NOTE | 2021-07-31 23:19 | ED ---
Medical Decision Making - Medical Decision Making Patient became agitated and wanted to leave AMA despite petition and cert. Restraints were placed and she was given 0.5 mg IM ativan. - Lab Data Result diagrams: 07/31/21 20:48 07/31/21 20:48 Lab Results 07/31/21 07/31/21 07/31/21 Range/Units 20:48 20:48 20:48 WBC 10.5 (3.8-10.6) k/uL RBC 4.32 (3.80-5.40) m/uL Hgb 13.7 (11.4-16.0) gm/dL Hct 41.8 (34.0-46.0) % MCV 96.8 (80.0-100.0) fL MCH 31.8 (25.0-35.0) pg MCHC 32.8 (31.0-37.0) g/dL RDW 12.8 (11.5-15.5) % Plt Count 247 (150-450) k/uL MPV 7.6 Neutrophils % 65 % Lymphocytes % 24 % Monocytes % 6 % Eosinophils % 2 % Basophils % 1 % Neutrophils # 6.9 (1.3-7.7) k/uL Lymphocytes # 2.6 (1.0-4.8) k/uL Monocytes # 0.6 (0-1.0) k/uL Eosinophils # 0.2 (0-0.7) k/uL Basophils # 0.1 (0-0.2) k/uL PT 11.0 (9.0-12.0) sec INR 1.0 (<1.2) Sodium 139 (137-145) mmol/L Potassium 3.5 (3.5-5.1) mmol/L Chloride 107 (98-107) mmol/L Carbon Dioxide 24 (22-30) mmol/L Anion Gap 8 mmol/L BUN 7 (7-17) mg/dL Creatinine 0.78 (0.52-1.04) mg/dL Est GFR (CKD-EPI)AfAm >90 (>60 ml/min/1.73 sqM) Est GFR (CKD-EPI)NonAf >90 (>60 ml/min/1.73 sqM) Glucose 100 H (74-99) mg/dL Lactic Ac Sepsis Rflx Plasma Lactic Acid Paul (0.7-2.0) mmol/L Calcium 9.1 (8.4-10.2) mg/dL Total Bilirubin 0.3 (0.2-1.3) mg/dL AST 21 (14-36) U/L ALT 14 (4-34) U/L Alkaline Phosphatase 64 (38-126) U/L Troponin I (0.000-0.034) ng/mL Total Protein 6.7 (6.3-8.2) g/dL Albumin 4.2 (3.5-5.0) g/dL Lipase 36 (23-300) U/L Salicylates <1.0 mg/dL Acetaminophen <10.0 ug/mL Serum Alcohol 20 mg/dL 07/31/21 07/31/21 07/31/21 Range/Units 20:48 20:48 21:08 WBC (3.8-10.6) k/uL RBC (3.80-5.40) m/uL Hgb (11.4-16.0) gm/dL Hct (34.0-46.0) % MCV (80.0-100.0) fL MCH (25.0-35.0) pg MCHC (31.0-37.0) g/dL RDW (11.5-15.5) % Plt Count (150-450) k/uL MPV Neutrophils % % Lymphocytes % % Monocytes % % Eosinophils % % Basophils % % Neutrophils # (1.3-7.7) k/uL Lymphocytes # (1.0-4.8) k/uL Monocytes # (0-1.0) k/uL Eosinophils # (0-0.7) k/uL Basophils # (0-0.2) k/uL PT (9.0-12.0) sec INR (<1.2) Sodium (137-145) mmol/L Potassium (3.5-5.1) mmol/L Chloride (98-107) mmol/L Carbon Dioxide (22-30) mmol/L Anion Gap mmol/L BUN (7-17) mg/dL Creatinine (0.52-1.04) mg/dL Est GFR (CKD-EPI)AfAm (>60 ml/min/1.73 sqM) Est GFR (CKD-EPI)NonAf (>60 ml/min/1.73 sqM) Glucose (74-99) mg/dL Lactic Ac Sepsis Rflx Y Plasma Lactic Acid Palu 2.2 H* (0.7-2.0) mmol/L Calcium (8.4-10.2) mg/dL Total Bilirubin (0.2-1.3) mg/dL AST (14-36) U/L ALT (4-34) U/L Alkaline Phosphatase (38-126) U/L Troponin I <0.012 (0.000-0.034) ng/mL Total Protein (6.3-8.2) g/dL Albumin (3.5-5.0) g/dL Lipase (23-300) U/L Salicylates mg/dL Acetaminophen ug/mL Serum Alcohol mg/dL Disposition Clinical Impression: Suicide attempt, Suicide attempt by beta heriberto overdose, Calcium channel heriberto overdose, Alcohol use Disposition: ADMITTED IP TO THIS [facility] Condition: Serious Procedures - Restraint - Face to Face Restraint Occurrence 1 Patient's Immediate Situation: Endangers self safety, Endangers others' safety, Endangers staff safety, Violent behavior Patient's Immediate Situation - Comment: Patient ripped out all IV's, is refusing medical care, and is attempting to leave AMA despite being petitioned. Patient's Reaction to the Intervention: Appropriate Patient's Medical & Behavioral Condition: Alert, Follows directions Face to Face Eval of Restraint Date: 07/31/21 Face to Face Eval of Restraint Time: 23:15
[2021-08-01] MEDS ORDERED: IBUPROFEN 600 MG TAB PO STA (00:58)
[2021-08-01] MEDS ORDERED: LORazepam 2 MG/ML INJ IM PRN (00:58)
--- NOTE | 2021-08-01 09:05 | P.HPIM ---
History of Present Illness This is a pleasant 56 years old female with past medical history of Hypertension, low back and cervical pain, 4-5 bulging discs in low back, frequent migraines.s/p previous Orthopedic Surgery, Anxiety, Bipolar, Depression, PTSD Patient was admitted with possible suicidal ideation and drug overdose with met oprolol and amlodipine as well as drinking alcohol. As per notes patient was trying to leave AMA and they have to petitioned her under strain her. For this morning she was sitting up in bed, pleasant, fully awake and oriented, calm. She denies being suicidal and she denies trying to kill herself last night. She denies drug overdose she states she takes metoprolol and amlodipine for blood pressure and she took him yesterday morning. Patient states that yesterday she had a quarrel with her boyfriend and she went to her room by herself and her boyfriend thought she is trying to kill herself so he took her to the emergency room. However patient adamant she did not and does not have intervention to get herself, stating that she has 2 kids 9 and 11 years and she wants to take care of them. She denies hopeless no sore hopelessness Also she denies any physical complaints other than chronic low back pain and knee pain. She denies headache or weakness. No chest pain or dyspnea or coughing. Pain or nausea vomiting. No diarrhea. No dysuria. She smokes 1 pack per day and she wants to quit after she was consult and she is been trying several times. He rarely she drinks alcohol no illicit drugs. I talked to the patient and she is willing to stay in the hospital until she is been evaluated by psychiatrist and destination imagination coordinator. Vitals are stable but she is tachycardic at 104-117. Later on her heart rate came down to 77. Labs reviewed and they are unremarkable CBC, INR, BMP and liver enzymes. Lactic acid is slightly elevated at 2.2, glucose 100 and troponin negative less than 0.012. Salicylate less than 1, acetaminophen less than 10 and serum alcohol is 20. Coronavirus not detected EKG shows sinus tachycardia at 103 with LVH and QTC [address]-T changes. Chest x-ray: No acute process Emergency room patient sitting. Activated charcoal 2, Ativan and started on normal saline and 100 mL per hour Review of Systems CONSTITUTIONAL: No fever, no malaise, no fatigue. HEENT: No recent visual problems or hearing problems. Denied any sore throat. CARDIOVASCULAR: No orthopnea, PND, no palpitations, no syncope. PULMONARY: No shortness of breath, no cough, no hemoptysis. GASTROINTESTINAL: No diarrhea, no nausea, no vomiting, no abdominal pain. Normoactive bowel sounds. NEUROLOGICAL: No headaches, no weakness, no numbness. HEMATOLOGICAL: Denies any bleeding or petechiae. GENITOURINARY: Denies any burning micturition, frequency, or urgency. MUSCULOSKELETAL/RHEUMATOLOGICAL: Denies any joint pain, swelling, or any muscle pain. ENDOCRINE: Denies any polyuria or polydipsia. Past Medical History Past Medical History: Hypertension Additional Past Medical History / Comment(s): tracheobronchitis, low back and cervical pain, 4-5 bulging discs in low back, frequent migraines. History of Any Multi-Drug Resistant Organisms: None Reported Past Surgical History: Orthopedic Surgery Additional Past Surgical History / Comment(s): R knee ACL repair x2 and 5 other arthroscopic surgeries on R knee. Past Anesthesia/Blood Transfusion Reactions: No Reported Reaction Past Psychological History: Anxiety, Bipolar, Depression, PTSD Smoking Status: Current every day smoker Past Alcohol Use History: Rare Past Drug Use History: Marijuana - Past Family History Mother Family Medical History: Cancer Additional Family Medical History / Comment(s): Mother had leiomyosarcoma. Father History Unknown: Yes Medications and Allergies Home Medications Medication Instructions Recorded Confirmed Type Metoprolol Succinate (ER) [Toprol 25 mg PO DAILY #7 tab 01/23/21 07/31/21 Rx XL] amLODIPine [Norvasc] 10 mg PO DAILY 07/31/21 07/31/21 History Allergies Allergy/AdvReac Type Severity Reaction Status Date / Time No Known Allergies Allergy Verified 07/31/21 21:02 Physical Exam Vitals: Vital Signs Temp Pulse Resp BP Pulse Ox 08/01/21 01:10 104 H 18 120/83 99 08/01/21 00:38 117 H 17 128/81 98 07/31/21 19:48 97.8 F 105 H 20 142/92 100 Intake and Output 07/31/21 08/01/21 08/01/21 22:59 06:59 14:59 Other: Weight 64.41 kg GENERAL: The patient is alert and oriented x3, not in any acute distress. Well developed, well nourished. HEENT: Pupils are round and equally reacting to light. EOMI. No scleral icterus. No conjunctival pallor. Normocephalic, atraumatic. No pharyngeal erythema. No thyromegaly. CARDIOVASCULAR: S1 and S2 present. No murmurs, rubs, or gallops. PULMONARY: Chest is clear to auscultation, no wheezing or crackles. ABDOMEN: Soft, nontender, nondistended, normoactive bowel sounds. No palpable organomegaly. MUSCULOSKELETAL: No joint swelling or deformity. EXTREMITIES: No cyanosis, clubbing, or pedal edema. NEUROLOGICAL: Gross neurological examination did not reveal any focal deficits. SKIN: No rashes. No petechiae Results CBC & Chem 7: 07/31/21 20:48 07/31/21 20:48 Labs: Abnormal Lab Results - Last 24 Hours (Table) 07/31/21 07/31/21 Range/Units 20:48 20:48 Glucose 100 H (74-99) mg/dL Plasma Lactic Acid Paul 2.2 H* (0.7-2.0) mmol/L Assessment and Plan Assessment: Suspected Drug overdose with beta heriberto and calcium channel hreiberto however patient denies taking dark overdose. She denies suicidal or homicidal ideation bipolar, depression and PTSD. Patient denies hopelessness or hopelessness currently her symptoms of depression Hypertension Nicotine dependence History of chronic low back. And Cervical pain History of migraines Plan: This is a pleasant 36 years old female who presents with BP, CCB overdose Continue with normal saline. Monitor vitals and heart rate Patient received activated charcoal. But not look good. Several consultants on the case including cardiology, pulmonary and psychiatric Patient states she does not follow up with PCP, patient was encouraged to call her medical insurance provider to find PCP within one week and follow up in one week and she agrees Labs and medication were reviewed.. Continue same treatment. Continue with symptomatic treatment. Resume home medication. Monitor lytes and vitals. DVT and GI prophylaxis. Further recommendations depends on the clinical course of the patient DVT prophylaxis: Subcutaneous heparin GI Prophylaxis: Pepcimarcella Discussed the case with pulmonary team who cleared her for discharge. Pending cardiology and psychiatric team evaluation, who are expected to clear her for discharge as well Discussed with staff
[2021-08-01 09:22] LABS: Basophils # (A) 0.1 k/uL (0-0.2); Basophils % (A) 1 %; Eosinophils # (A) 0.3 k/uL (0-0.7); Eosinophils % (A) 3 %; HCT 41.6 % (34.0-46.0); HGB 13.5 gm/dL (11.4-16.0); Lymphocytes % (A) 19 %; MCH 31.8 pg (25.0-35.0); MCHC 32.5 g/dL (31.0-37.0); MCV 97.8 fL (80.0-100.0); Mean Platelet Volume 7.3; Monocytes # (A) 0.5 k/uL (0-1.0); Monocytes % (A) 5 %; Neutrophils # (A) 7.7 k/uL (1.3-7.7); Neutrophils % (A) 72 %; Platelet Count 259 k/uL (150-450); RBC 4.26 m/uL (3.80-5.40); RDW 12.8 % (11.5-15.5); WBC 10.6 k/uL (3.8-10.6)
[2021-08-01 09:32] LABS: African American GFR (CKD) >90 (>60 ml/min/1.73 sqM); Anion Gap 8 mmol/L; Blood Urea Nitrogen 3 mg/dL (7-17); Calcium 8.5 mg/dL (8.4-10.2); Carbon Dioxide 23 mmol/L (22-30); Chloride 109 mmol/L (98-107); Glucose 98 mg/dL (74-99); Magnesium 1.9 mg/dL (1.6-2.3); Non-African American GFR(CKD) >90 (>60 ml/min/1.73 sqM); Potassium 3.7 mmol/L (3.5-5.1); Sodium 140 mmol/L (137-145)
[2021-08-01 09:43] LABS: HCG,Qualitative Serum Not Detected
--- NOTE | 2021-08-01 11:37 | P.CRDCN ---
History of Present Illness History of present illness: HISTORY OF PRESENTING ILLNESS This is a pleasant 36-year-old female past medical history significant for hypertension, chronic nicotine dependence. She follows in the office with Dr. Corcoran. We have been asked to see in consultation for possible overdose of beta heriberto and calcium channel heriberto. Patient is seen and examined in the emergency department. Patient was admitted with possible suicidal ideation and drug overdose metoprolol and amlodipine as well as drinking alcohol. As per the emergency department notes patient was trying to leave AMA in the had to restrain the patient. Per the Emergency Department Note "She presents after suspected overdose of numerous pills of metoprolol XL as well as amlodipine. She is uncertain how many she took, however states she took maybe half a bottle each of metoprolol XL 50 mg and amlodipine 10 mg. Each bottle had approximately 90 day supply of pills." When speaking to the patient, she states that she had a disagreement with her b oyfriend and he was under the impression that she overdosed on her cardiac medication. However she states that this did not happen. She states she did not take an overdose amount of her medication. She states she took her normally prescribed dose. She denies any suicidal ideation. She also denies any complaints. She denies chest pain, shortness of breath, lightheadedness, dizziness, palpitations, symptoms of presyncope. She denies any syncope. She denies any symptoms of orthopnea or PND. She denies any headache, blurry vision, weakness, cough, fever, chills, nausea, vomiting, diarrhea. Since admission patient's vital signs have been stable no evidence of severe hypotension or bradycardia noted. DIAGNOSTICS EKG reveals sinus tachycardia, heart rate 103, LVH, non specific ST-T wave abn ormalities. Telemetry tracings indicate sinus mechanism, no bradycardia noted. Chest xray no acute cardiopulmonary process Laboratory reviewed, CBC is unremarkable, sodium 140, potassium 3.7, BUN 3, s jose elias creatinine 0.5, magnesium 1.9, lactate 2.2, troponin negative 1, serum alcohol 20, salicylates and acetaminophen level negative, covid-19 negative Current cardiac medications include amlodipine 10 mg daily, metoprolol succinate 25 mg daily REVIEW OF SYSTEMS At the time of my exam: CONSTITUTIONAL: Denies fever or chills. CARDIOVASCULAR: Denies chest pain, shortness of breath, orthopnea, PND or palpitations. RESPIRATORY: Denies cough. GASTROINTESTINAL: Denies abdominal pain, diarrhea, constipation, nausea or vomiting. MUSCULOSKELETAL: Denies myalgias. NEUROLOGIC: Denies numbness, tingling, headacbe or weakness. ENDOCRINE: Denies fatigue, weight change, polydipsia or polyurina. GENITOURINARY: Denies burning, hematuria or urgency with micturation. HEMATOLOGIC: Denies history of anemia or bleeding. PHYSICAL EXAMINATION Blood pressure 110/70, heart rate 71, afebrile, oxygen saturation is greater than 92% on room air CONSTITUTIONAL: No apparent distress. HEENT: Head is normocephalic. Pupils are equal, round. Sclerae anicteric. Mucous membranes of the mouth are moist. No JVD. No carotid bruit. CHEST EXAMINATION: Lungs are clear to auscultation. No chest wall tenderness is noted on palpation or with deep breathing. HEART EXAMINATION: Regular rate and rhythm. S1, S2 heard. No murmurs, gallops or rub. ABDOMEN: Soft, nontender. Positive bowel sounds. EXTREMITIES: 2+ peripheral pulses, no lower extremity edema and no calf tenderness. NEUROLOGIC EXAMINATION: Patient is awake, alert and oriented x3. ASSESSMENT Hypertension Chronic nicotine dependence PLAN From cardiology perspective, Patient is denying taking excessive amount of her amlodipine and/or metoprolol. Patient is hemodynamically stable. No evidence of severe hypotension or bradycardia noted. Rest of management per primary. We will follow the patient has needed. Recommend follow-up with Dr. Corcoran in the office Nurse Practitioner note has been reviewed, I agree with a documented findings and plan of care. Patient was seen and examined. Past Medical History Past Medical History: Hypertension Additional Past Medical History / Comment(s): tracheobronchitis, low back and cervical pain, 4-5 bulging discs in low back, frequent migraines. History of Any Multi-Drug Resistant Organisms: None Reported Past Surgical History: Orthopedic Surgery Additional Past Surgical History / Comment(s): R knee ACL repair x2 and 5 other arthroscopic surgeries on R knee. Past Anesthesia/Blood Transfusion Reactions: No Reported Reaction Past Psychological History: Anxiety, Bipolar, Depression, PTSD Smoking Status: Current every day smoker Past Alcohol Use History: Rare Past Drug Use History: Marijuana - Past Family History Mother Family Medical History: Cancer Additional Family Medical History / Comment(s): Mother had leiomyosarcoma. Father History Unknown: Yes Medications and Allergies Home Medications Medication Instructions Recorded Confirmed Type Metoprolol Succinate (ER) [Toprol 25 mg PO DAILY #7 tab 01/23/21 07/31/21 Rx XL] amLODIPine [Norvasc] 10 mg PO DAILY 07/31/21 07/31/21 History Allergies Allergy/AdvReac Type Severity Reaction Status Date / Time No Known Allergies Allergy Verified 07/31/21 21:02 Physical Exam Vitals: Vital Signs Temp Pulse Resp BP Pulse Ox 08/01/21 01:10 104 H 18 120/83 99 08/01/21 00:38 117 H 17 128/81 98 07/31/21 19:48 97.8 F 105 H 20 142/92 100 Intake and Output 07/31/21 08/01/21 08/01/21 22:59 06:59 14:59 Other: Weight 64.41 kg Results 08/01/21 08:58 08/01/21 08:58 Cardiac Enzymes 07/31/21 07/31/21 Range/Units 20:48 20:48 AST 21 (14-36) U/L Troponin I <0.012 (0.000-0.034) ng/mL Coagulation 07/31/21 Range/Units 20:48 PT 11.0 (9.0-12.0) sec CBC 07/31/21 Range/Units 20:48 WBC 10.5 (3.8-10.6) k/uL RBC 4.32 (3.80-5.40) m/uL Hgb 13.7 (11.4-16.0) gm/dL Hct 41.8 (34.0-46.0) % Plt Count 247 (150-450) k/uL Comprehensive Metabolic Panel 07/31/21 Range/Units 20:48 Sodium 139 (137-145) mmol/L Potassium 3.5 (3.5-5.1) mmol/L Chloride 107 (98-107) mmol/L Carbon Dioxide 24 (22-30) mmol/L BUN 7 (7-17) mg/dL Creatinine 0.78 (0.52-1.04) mg/dL Glucose 100 H (74-99) mg/dL Calcium 9.1 (8.4-10.2) mg/dL AST 21 (14-36) U/L ALT 14 (4-34) U/L Alkaline Phosphatase 64 (38-126) U/L Total Protein 6.7 (6.3-8.2) g/dL Albumin 4.2 (3.5-5.0) g/dL Current Medications Generic Name Dose Route Start Last Admin Trade Name Freq PRN Reason Stop Dose Admin Sodium Chloride 1,000 mls @ 100 mls/hr 07/31/21 22:00 Saline 0.9% IV .Q10H BENJAMIN Lorazepam 0.5 mg 08/01/21 00:58 Lorazepam 2 Mg/Ml Inj IM Q4HR PRN Agitation Naloxone HCl 0.2 mg 07/31/21 21:53 Naloxone 0.4 Mg/Ml 1 Ml Vial IV Q2M PRN Opioid Reversal Intake and Output 07/31/21 08/01/21 08/01/21 22:59 06:59 14:59 Other: Weight 64.41 kg 07/31/21 20:48 07/31/21 20:48
--- NOTE | 2021-08-01 12:07 | P.CNPUL ---
History of Present Illness Consult date: 08/01/21 Requesting physician: Edilson E Maryanne Reason for consult: other (Suspected beta heriberto and calcium channel heriberto overdose) Chief complaint: Suspected drug overdose History of present illness: This is a 36-year-old female patient was brought into the emergency room following a suspected suicide attempt. She was alert when she came in and said he did take at least a half a bottle of both metoprolol XL milligram tablets and and amlodipine and milligram tablets. Vitals had 90 pills and age. She also stated she drank alcohol and took Xanax earlier in the day. She blamed her suicide attempt and undergoing stressors in her life. She has a prior history of suicide many years ago. She was initially going to be placed in the intensive care unit and we are consulted for the same. She is seen today in the ER. She is currently sitting up on a stretcher. Awake and alert in no acute distress. She is currently denying that she attempted suicide. She is wanting to go home. He denies any dizziness or lightheadedness. No nausea or vomiting. She has remained slightly tachycardic. Blood pressure stable. Maintaining O2 saturation the high 90s on room air. She's been afebrile. EKG reveals a sinus tachycardia with some LVH. Chest x-ray reveals no acute pulmonary process. White count 10.6. Hemoglobin 13.5. Sodium 140. Potassium 3.7. Creatinine 0.58. Urine hCG negative. Rotavirus negative. Serum alcohol level XX. Acetaminophen level less than 10. Salicylates less than 1.0. Troponin negative. Lipase 36. Psychiatry has been consulted. Review of Systems REVIEW OF SYSTEMS: CONSTITUTIONAL: Denies any recent significant weight loss or weight gain. EYES: Denies change in vision. EARS, NOSE, MOUTH, THROAT: Denies headaches, denies sore throat. CARDIOVASCULAR: Denies chest pain, palpitations or syncopal episodes. RESPIRATORY: Denies shortness of breath, cough, congestion or hemoptysis. GASTROINTESTINAL: Denies change in appetite, denies abdominal pain GENITOURINARY: Denies hematuria, denies infections. MUSKULOSKELETAL: Denies pain, denies swelling. INTEGUMENTARY: Denies rash, denies eczema. NEUROLOGICAL: Denies recent memory loss, no recent seizure activity. PSYCHIATRIC: Denies anxiety, denies depression. HEMATOLOGIC/LYMPHATIC: Denies anemia, denies enlarged lymph nodes. Past Medical History Past Medical History: Hypertension Additional Past Medical History / Comment(s): tracheobronchitis, low back and cervical pain, 4-5 bulging discs in low back, frequent migraines. History of Any Multi-Drug Resistant Organisms: None Reported Past Surgical History: Orthopedic Surgery Additional Past Surgical History / Comment(s): R knee ACL repair x2 and 5 other arthroscopic surgeries on R knee. Past Anesthesia/Blood Transfusion Reactions: No Reported Reaction Past Psychological History: Anxiety, Bipolar, Depression, PTSD Smoking Status: Current every day smoker Past Alcohol Use History: Rare Past Drug Use History: Marijuana - Past Family History Mother Family Medical History: Cancer Additional Family Medical History / Comment(s): Mother had leiomyosarcoma. Father History Unknown: Yes Medications and Allergies Home Medications Medication Instructions Recorded Confirmed Type Metoprolol Succinate (ER) [Toprol 25 mg PO DAILY #7 tab 01/23/21 07/31/21 Rx XL] amLODIPine [Norvasc] 10 mg PO DAILY 07/31/21 07/31/21 History Allergies Allergy/AdvReac Type Severity Reaction Status Date / Time No Known Allergies Allergy Verified 07/31/21 21:02 Physical Exam Vitals: Vital Signs Temp Pulse Resp BP Pulse Ox 08/01/21 09:55 71 18 110/70 98 08/01/21 07:38 98.1 F 77 16 99/66 99 08/01/21 01:10 104 H 18 120/83 99 08/01/21 00:38 117 H 17 128/81 98 07/31/21 19:48 97.8 F 105 H 20 142/92 100 Intake and Output 07/31/21 08/01/21 08/01/21 22:59 06:59 14:59 Other: Weight 64.41 kg GENERAL EXAM: Alert, active, comfortable in no apparent distress. HEAD: Normocephalic. EYES: Normal reaction of pupils, equal size. NOSE: Clear with pink turbinates. THROAT: Poor dentition. No erythema or exudates. NECK: No masses, no JVD. CHEST: No chest wall deformity. LUNGS: Equal air entry with no crackles, wheeze, rhonchi or dullness. CVS: S1 and S2 normal with no audible murmur, regular rhythm. ABDOMEN: No hepatosplenomegaly, normal bowel sounds, no guarding or rigidity. SPINE: No scoliosis or deformity SKIN: No rashes CENTRAL NERVOUS SYSTEM: No focal deficits, tone is normal in all 4 extremities. EXTREMITIES: There is no peripheral edema. No clubbing, no cyanosis. Peripheral pulses are intact. Results - Laboratory Findings CBC and BMP: 08/01/21 08:58 08/01/21 08:58 PT/INR, D-dimer PT 11.0 sec (9.0-12.0) 07/31/21 20:48 INR 1.0 (<1.2) 07/31/21 20:48 Abnormal lab findings: Abnormal Labs 07/31/21 07/31/21 08/01/21 20:48 20:48 08:58 Chloride 109 H BUN 3 L Glucose 100 H Plasma Lactic Acid Paul 2.2 H* - Diagnostic Findings Chest x-ray: image reviewed Assessment and Plan Assessment: 1 Acute suicide attempt admitting last evening to taking half a bottle of 90 count of both metoprolol 50 mg tablets and amlodipine 10 mg tablets, today denying taking any more than the prescribed amount 2 Previous history of suicide attempt 3 Alcohol use and Xanax yesterday 4 history of hypertension 5 History of bipolar disorder 6 Chronic and ongoing tobacco dependence 7 Marijuana use Plan: The patient was seen and evaluated by Dr. Clements Chest x-ray and labs reviewed No need for ICU admission Psychiatry evaluation pending We will see as needed I, the cosigning physician, performed a history & physical examination of the patient. Lungs sounds are clear. Maintaining good O2 saturations in the 90s on room air. I discussed the assessment and plan of care with my nurse practitioner, Carol Gonzalez. I attest to the above consultation as dictated by her. Time with Patient: Greater than 30
[2021-08-01 15:51] VITALS: BP 104/77; PULSE 88; RESP 16; TEMP 98.7
--- NOTE | 2021-08-01 23:12 | CONS ---
DATE OF SERVICE: 08/01/2021 CONSULTATION PURPOSE FOR CONSULTATION: Evaluate for possible overdose. HISTORY OF PRESENTING ILLNESS: The patient is a 36-year-old female. She presented to the ED with possible depression, suicidal thinking and a question of overdose. I talked to the patient and also talked to the patient's boyfriend, with whom she lives. I also had a telephone call with Sarah Joe at [facility]. The patient stated that she has had a lot of stress in the last month or more. She notes that she had previously been and that her former about one month ago. She said that was a difficult situation for her. In addition, she has been trying to get into [facility] to get followup. She has made contact with a therapist, Sarah Joe, at [facility]. Apparently she has not yet been able to get in for an intake. She said that she has been having quite a bit of difficulty with her two children who are ages 10 and 11. Apparently they have some significant mental health issues. They have been involved in some therapy through [facility]. The patient states that a problem is that they have been refusing to go to school and that because of the significant level of care needs they have, it has been impossible for the patient herself to get to [facility] to see her therapist. She said the current situation culminated because she and her boyfriend got into an argument. She drank some alcohol. She says she was very distressed. She threatened to overdose, though said that she had no intention in that regard. She did acknowledge that she took a handful of pills and put them in her mouth, mainly her medications for her blood pressure. She said she ended up spitting the medicines out. She said that for the most part she was just very frustrated and that the alcohol made her more impulsive. She denied any significant problems of substance use issues. She does acknowledges depression problems on and off. She had a psychiatric hospitalization 8 years ago for a suicide attempt. She had gotten some outpatient followup at that time, though she is not in any mental health care at present. She is not on any psychotropic medications. She reports that she has not had significant problems with depression other than being quite distressed in the last month, in part for grief. She says she is wanting to get into counseling at [facility]. I talked to the boyfriend. He noted that the patient was quite distressed. He was uncertain whether or not she actually took an overdose. He said he brought her to the emergency room just to be cautious and that she was highly stressed. He stated that he believed it would be safe for her to come home. He was not aware that she had any clear intent toward self-harm. He agreed with the idea that she should get into counseling and that the biggest obstacle at this point is working out scheduling so that they can take care of the two children and get her to her appointments. I talked to the case liner, Sarah Heath, and the appointments had been set up for the patient to be seen, though as yet there has not been a connection. I made Ms. Joe aware of the current situation and her coming to the emergency room. She will make herself available to see the patient as soon as possible and encouraged them to get in touch with [facility] to try to set up appointments soon for followup. MENTAL STATUS EXAM: Patient was sitting up in bed. She gave fairly good eye contact. She was somewhat restless. She answered questions appropriately. Her thoughts were clear. She was spontaneous and interactive. Her affect was anxious, her mood dysphoric. She seemed moderately distressed. There was no indication of thought disorder. She denied thoughts of harm. At the time of the interview she stated that she has no plan, intent or passive thoughts in regard to suicidality. On cognitive exam she was oriented and alert. ASSESSMENT: This 36-year-old female is diagnosed with depression; unclear whether she meets criteria for major depression. She was clearly stating that she was not suicidal. Her boyfriend who brought her to the hospital was in agreement that she would be safe to go home. Both the boyfriend and patient were clear that they would make a commitment to get to [facility] for a followup for the patient as soon as possible and will be making telephone calls to [facility] in the morning. At this point the patient is appropriate to be discharged to home. I did stress to both the patient and boyfriend that if things were to get more stressful and if the patient might be having more difficulties like she had that brought her to the hospital this time, they should not hesitate to come back. Both were in agreement with that. Patient will get followup through [facility]. MMODL / IJN: [id number] / DELFINA
== END 2021-08-01 16:03 | disposition home or self-care (01) ==
LOC: EC 19:41 → 3SCARD 21:53 → INTOOBSV 21:53 → 3SCARD 08-01 08:41 → 5NMEDONC 08-01 15:11 → UNDODISIN 08-01 16:03
PROVIDERS: ADMIT Hospitalist; ATTEND Hospitalist
DX: T46.1X1A Poisoning by calcium-channel blockers, accidental (unintentional), initial encounter (principal); R45.851 Suicidal ideations; R00.0 Tachycardia, unspecified; R45.6 Violent behavior; R45.87 Impulsiveness; R45.1 Restlessness and agitation; M54.2 Cervicalgia; M51.26 Other intervertebral disc displacement, lumbar region; G89.29 Other chronic pain; M25.569 Pain in unspecified knee; F12.90 Cannabis use, unspecified, uncomplicated; Z20.822 Contact with and (suspected) exposure to COVID-19; I10 Essential (primary) hypertension; F43.10 Post-traumatic stress disorder, unspecified; J40 Bronchitis, not specified as acute or chronic; F31.9 Bipolar disorder, unspecified; F17.210 Nicotine dependence, cigarettes, uncomplicated; Z79.899 Other long term (current) drug therapy; Z78.1 Physical restraint status; Z91.51 Personal history of suicidal behavior; Z86.69 Personal history of other diseases of the nervous system and sense organs; Z80.8 Family history of malignant neoplasm of other organs or systems; Y90.1 Blood alcohol level of 20-39 mg/100 ml; Z71.89 Other specified counseling
CPT/HCPCS: 99291; 82075; 96360; 96361 ×2; 96372; 36415; 93005; 80053; 80048; 83605; 83690; 83735; 84484; 85025 ×2; 85610; 84703; 80143; 87635; 80179; 71045; G0378 ×2; G0480; J2060; 80320

== ENCOUNTER 2021-12-24 12:34 | Emergency (ER) | payer OTHER ==
[2021-12-24 13:11] VITALS: BP 187/121; PULSE 93; RESP 18; TEMP 98.5
[2021-12-24] MEDS ORDERED: AMOXIC-POT CLAV 875-125MG 1 EACH TAB PO STA (13:24)
[2021-12-24] MEDS ORDERED: methocarbamoL 750 MG TAB PO STA (13:24)
--- NOTE | 2021-12-24 13:35 | ED ---
General Adult HPI - General Chief complaint: Neck Pain/Injury Stated complaint: Neck Pain, Face Infection Time Seen by Provider: 12/24/21 13:12 Source: patient Mode of arrival: ambulatory - History of Present Illness Initial comments: Patient states that she is having some muscle spasms in her neck. It is worse with movement. She has no headache. She has no nausea or vomiting. She has no lightheadedness or dizziness. Patient also comes to the emergency department today because she felt pain in the upper left teeth. She has poor dentition, she states. She has a little swelling there. She thinks she has a dental infection. She has no trouble opening her mouth. She has no trouble swallowing. She tolerates solid and liquid oral intake. She has no pain in the ears. She has no pain in the eyes. She has no palpitations, fevers or chills. - Related Data Previous Rx's Medication Instructions Recorded Amoxic-Pot Clav 875-125Mg 1 tab PO BID 1 Days #20 tab 12/24/21 [Augmentin 875-125] Methocarbamol [Robaxin-750] 1,500 mg PO BID PRN #15 tablet 12/24/21 Allergies Allergy/AdvReac Type Severity Reaction Status Date / Time No Known Allergies Allergy Verified 12/24/21 13:11 Review of Systems ROS Statement: Those systems with pertinent positive or pertinent negative responses have been documented in the HPI. ROS Other: All systems not noted in ROS Statement are negative. Past Medical History Past Medical History: Hypertension Additional Past Medical History / Comment(s): tracheobronchitis, low back and cervical pain, 4-5 bulging discs in low back, frequent migraines. History of Any Multi-Drug Resistant Organisms: None Reported Past Surgical History: Orthopedic Surgery Additional Past Surgical History / Comment(s): R knee ACL repair x2 and 5 other arthroscopic surgeries on R knee. Past Anesthesia/Blood Transfusion Reactions: No Reported Reaction Past Psychological History: Anxiety, Bipolar, Depression, PTSD Smoking Status: Current every day smoker Past Alcohol Use History: Rare Past Drug Use History: Marijuana - Past Family History Mother Family Medical History: Cancer Additional Family Medical History / Comment(s): Mother had leiomyosarcoma. Father History Unknown: Yes General Exam General appearance: alert, in no apparent distress Head exam: Present: atraumatic, normocephalic, normal inspection Eye exam: Present: normal appearance, PERRL, EOMI. Absent: scleral icterus, conjunctival injection, periorbital swelling ENT exam: Present: normal exam, mucous membranes moist Neck exam: Present: normal inspection. Absent: tenderness, meningismus, lymphadenopathy Respiratory exam: Present: normal lung sounds bilaterally. Absent: respiratory distress, wheezes, rales, rhonchi, stridor Cardiovascular Exam: Present: regular rate, normal rhythm, normal heart sounds. Absent: systolic murmur, diastolic murmur, rubs, gallop, clicks GI/Abdominal exam: Present: soft, normal bowel sounds. Absent: distended, tenderness, guarding, rebound, rigid Extremities exam: Present: normal inspection, full ROM, normal capillary refill. Absent: tenderness, pedal edema, joint swelling, calf tenderness Back exam: Present: normal inspection Neurological exam: Present: alert, oriented X3, CN II-XII intact Psychiatric exam: Present: normal affect, normal mood Skin exam: Present: warm, dry, intact, normal color. Absent: rash Course Vital Signs 12/24/21 13:05 Temperature 98.5 F Pulse Rate 93 Respiratory 18 Rate Blood Pressure 187/121 O2 Sat by Pulse 98 Oximetry Medical Decision Making - Medical Decision Making Patient presents with muscle pain, possible dental infection. I did offer the patient advanced imaging which she declined. She would prefer to try oral medications as an outpatient first. I gave her Robaxin for the neck pain and Au gmentin for the possible dental infection. She tolerates oral intake. Her vital signs are normal. In her exam is unremarkable. There is no acute emergency at this time. I advised the patient that if her symptoms worsen or if they are not resolving within 24 hours then she should return to the emergency department immediately for further evaluation. She verbalized understanding of this and is in agreement with the plan. Disposition Clinical Impression: Strain of neck muscle Disposition: HOME SELF-CARE Condition: Good Instructions (If sedation given, give patient instructions): Cervical Strain (ED), Toothache (ED) Prescriptions: Amoxic-Pot Clav 875-125Mg [Augmentin 875-125] 1 tab PO BID 1 Days #20 tab Methocarbamol [Robaxin-750] 1,500 mg PO BID PRN #15 tablet PRN Reason: Pain Is patient prescribed a controlled substance at d/c from ED?: No Referrals: Noe Quiroz MD [Primary Care Provider] - 1-2 days
== END 2021-12-24 14:09 | disposition home or self-care (01) ==
LOC: EC 12:34
DX: S16.1XXA Strain of muscle, fascia and tendon at neck level, initial encounter (principal); I10 Essential (primary) hypertension; F17.200 Nicotine dependence, unspecified, uncomplicated; X58.XXXA Exposure to other specified factors, initial encounter
CPT/HCPCS: 99283

== ENCOUNTER 2022-03-17 15:50 | Emergency (ER) | payer OTHER ==
[2022-03-17 15:54] VITALS: RESP 16; TEMP 98.3
[2022-03-17] MEDS ORDERED: KETOROLAC 15 MG/ML 1 ML VIAL IM STA (16:17)
[2022-03-17] MEDS ORDERED: HYDROcodone/APAP 7.5-325MG 1 EACH TAB PO ONE (16:17)
--- NOTE | 2022-03-17 16:30 | ED ---
Skin/Abscess/FB HPI - General Source: patient, RN notes reviewed Mode of arrival: ambulatory Limitations: no limitations - History of Present Illness MD complaint: abscess/boil Onset/Timin -: days(s) Location: genitals <Sharmila Wiggins - Last Filed: 03/17/22 16:23> - General Source: patient, RN notes reviewed Mode of arrival: ambulatory Limitations: no limitations <Stacey Goel - Last Filed: 03/17/22 20:06> - General Chief complaint: Skin/Abscess/Foreign Body Stated complaint: Female Issues Time Seen by Provider: 03/17/22 15:56 - History of Present Illness Initial comments: This is a 36-year-old female who presents to the emergency department with a cyst on her vagina. This is on the left side of the lower vagina. She first noticed this yesterday and states that it started draining in the shower. She has had a few of these in the past, most recently 2-3 years ago, which also required drainage. (Sharmila Wiggins) - Related Data Home Medications Medication Instructions Recorded Confirmed Acetaminophen Tab [Tylenol Tab] 1,000 mg PO Q6H PRN 12/24/21 03/17/22 Ibuprofen [Motrin Ib] 400 mg PO Q6H PRN 12/24/21 03/17/22 Metoprolol Succinate (ER) [Toprol 50 mg PO DAILY 12/24/21 03/17/22 Xl] amLODIPine [Norvasc] 10 mg PO DAILY 12/24/21 03/17/22 Previous Rx's Medication Instructions Recorded Clindamycin [Cleocin] 300 mg PO QID 7 Days #56 cap 03/17/22 HYDROcodone/APAP 5-325MG [[place] 5] 1 each PO Q6HR PRN #4 tab 03/17/22 ceFIXime [Cefixime] 400 mg PO DAILY 7 Days #7 capsule 03/17/22 Allergies Allergy/AdvReac Type Severity Reaction Status Date / Time No Known Allergies Allergy Verified 03/17/22 17:29 Review of Systems ROS Other: All systems not noted in ROS Statement are negative. <Sharmila Wiggins - Last Filed: 03/17/22 16:23> ROS Other: All systems not noted in ROS Statement are negative. <Stacey Goel - Last Filed: 03/17/22 20:06> ROS Statement: Those systems with pertinent positive or pertinent negative responses have been documented in the HPI. Past Medical History Past Medical History: Hypertension Additional Past Medical History / Comment(s): tracheobronchitis, low back and cervical pain, 4-5 bulging discs in low back, frequent migraines. History of Any Multi-Drug Resistant Organisms: None Reported Past Surgical History: Orthopedic Surgery Additional Past Surgical History / Comment(s): R knee ACL repair x2 and 5 other arthroscopic surgeries on R knee. Past Anesthesia/Blood Transfusion Reactions: No Reported Reaction Past Psychological History: Anxiety, Bipolar, Depression, PTSD Smoking Status: Current every day smoker Past Alcohol Use History: Rare Past Drug Use History: Marijuana - Past Family History Mother Family Medical History: Cancer Additional Family Medical History / Comment(s): Mother had leiomyosarcoma. Father History Unknown: Yes <Sharmila Wiggins - Last Filed: 03/17/22 16:23> General Exam Limitations: no limitations General appearance: alert, in no apparent distress Head exam: Present: atraumatic, normocephalic, normal inspection Respiratory exam: Present: normal lung sounds bilaterally. Absent: respiratory distress, wheezes, rales, rhonchi, stridor Cardiovascular Exam: Present: regular rate, normal rhythm, normal heart sounds. Absent: systolic murmur, diastolic murmur, rubs, gallop, clicks External exam: Present: other (Firm and tender abscess at the 4 o'clock position consistent with a bartholin gland abscess. ) Neurological exam: Present: alert, oriented X3, CN II-XII intact Psychiatric exam: Present: normal affect, normal mood Skin exam: Present: warm, dry, intact, normal color. Absent: rash <Sharmila Wiggins - Last Filed: 03/17/22 16:23> Limitations: no limitations (Well-developed, well-nourished female in no acute distress. Initial temperature 98.3, pulse 96, respiration 16, blood pressure 155/106, pulse ox 100% on room air.) General appearance: alert, in no apparent distress Head exam: Present: atraumatic, normal inspection Respiratory exam: Present: normal lung sounds bilaterally. Absent: respiratory distress, wheezes, rales, rhonchi, stridor Cardiovascular Exam: Present: regular rate, normal rhythm, normal heart sounds. Absent: systolic murmur, diastolic murmur, rubs, gallop, clicks GI/Abdominal exam: Present: soft, normal bowel sounds. Absent: distended, tenderness, guarding, rebound, rigid External exam: Present: other (Firm and tender abscess at the 4-5 o'clock position consistent with a bartholin gland abscess. ) Neurological exam: Present: alert, oriented X3, CN II-XII intact Psychiatric exam: Present: normal affect, normal mood Skin exam: Present: warm, dry, intact, normal color. Absent: rash <Stacey Goel - Last Filed: 03/17/22 20:06> Course <Stacey Goel - Last Filed: 03/17/22 20:06> Vital Signs 03/17/22 15:51 Temperature 98.3 F Pulse Rate 96 Respiratory 16 Rate Blood Pressure 155/106 O2 Sat by Pulse 100 Oximetry - Reevaluation(s) Reevaluation #1: 03/17/22 18:21 Patient's care assumed from PHUONG Wise. Patient is resting comfortably upon exam after having received pain medication. Discussed I&D. Patient states she has had to have this procedure before and was agreeable with plan of care. (Stacey Goel) Procedures - Incision & Drainage Consent Obtained: verbal consent, written consent Indication: fluctuant, well defined abscess Site: vulva/vagina (left labia at 4 o'clock position) Anesthetic Used: lidocaine 1% Amount (mLs): 2 I&D Cleaning Method: Iodine Sterile Field Used?: Yes Scalpel Used: #11 Needle Aspiration Performed?: Yes Irrigation Performed?: Yes I&D Drainage Obtained: Pus, Blood, Other (foul-smelling drainage.) Packing: Other (no packing; decline Word catheter) Culture Obtained?: Yes Patient Tolerated Procedure: well, no complications <Stacey Goel - Last Filed: 03/17/22 20:06> Medical Decision Making <Stacey Goel - Last Filed: 03/17/22 20:06> - Medical Decision Making This is a 36-year-old female with past medical history of Bartholin Gland Cyst abscess who presents to the emergency department for evaluation of pain and swelling on the left labia. Upon exam, patient is well-appearing and in no acute distress. She does have a walled off, well-defined fluctuant area on the left labia that extends toward the introitus. Patient was given pain medication and abscess was cleansed and anesthetized. An 11 blade scalpel was used to incise the abscess with moderate amount of foul-smelling purulent drainage. Discussed word catheter, however patient declined. Patient was given antibiotic, pain medication, and instructed on further wound care. Encouraged to follow up with PCP or DRESS CUTTER for reevaluation in 3-5 days. Return parameters discussed in detail. Patient verbalizes understanding and agrees with this plan. Attending: Benny. (Stacey Goel) Disposition <Sharmila Wiggins - Last Filed: 03/17/22 16:23> Is patient prescribed a controlled substance at d/c from ED?: Yes When asked, does pt state using other controlled substances?: No If prescribed controlled substance>3 days was MAPS reviewed?: Prescribed <3 Days If opioid is for acute pain is fill amount 7 days or less?: Yes If Rx opioid, was Start Talking consent form obtained?: Yes Time of Disposition: 19:27 <Stacey Goel - Last Filed: 03/17/22 20:06> Clinical Impression: Bartholin's gland abscess Disposition: HOME SELF-CARE Instructions (If sedation given, give patient instructions): Bartholin Cyst (ED) Additional Instructions: Expect some drainage over the next 48 hours. Sitz bath and/or warm compresses as we discussed. Avoid sexual intercourse for the next 3 days. Follow up with PCP or [facility] [facility] Technician for recheck by the end of the week. Wear loose fitting clothes and cotton underwear. Take antibiotics as prescribed. Motrin for mild-moderate pain. [place] for more severe pain. Return to the emergency department with any new, worsening, or concerning symptoms including increased pain or fever. Prescriptions: ceFIXime [Cefixime] 400 mg PO DAILY 7 Days #7 capsule Clindamycin [Cleocin] 300 mg PO QID 7 Days #56 cap HYDROcodone/APAP 5-325MG [[place] 5] 1 each PO Q6HR PRN #4 tab PRN Reason: Pain Referrals: Noe Quiroz MD [Primary Care Provider] - 1-2 days
[2022-03-17] MEDS ORDERED: LIDOCAINE 1% INJ 10MG/ML (5 ML VIAL-PF) SQ ONE (16:35)
[2022-03-17] MEDS ORDERED: ACET/COD 300 MG/30 MG STARTER PACK 6 TAB BTL PO STA (19:16)
[2022-03-17] MEDS ORDERED: CLINDAMYCIN 150 MG CAP PO STA (19:17)
[2022-03-17] MEDS ORDERED: CEFDINIR 300 MG CAP PO STA (19:17)
[2022-03-17 20:20] VITALS: BP 144/92; PULSE 77
== END 2022-03-17 20:21 | disposition home or self-care (01) ==
LOC: EC 15:50
DX: N75.1 Abscess of Bartholin's gland (principal); I10 Essential (primary) hypertension; G43.909 Migraine, unspecified, not intractable, without status migrainosus; F41.9 Anxiety disorder, unspecified; F31.9 Bipolar disorder, unspecified; F43.10 Post-traumatic stress disorder, unspecified; F17.200 Nicotine dependence, unspecified, uncomplicated; Z72.89 Other problems related to lifestyle; F12.90 Cannabis use, unspecified, uncomplicated
CPT/HCPCS: 87070; 87205; 56420; 99282; 96372; J2001; J1885

== ENCOUNTER 2022-03-20 17:26 | Emergency (ER) | payer OTHER ==
[2022-03-20 17:46] VITALS: TEMP 98.6
[2022-03-20] MEDS ORDERED: HYDROcodone/APAP 7.5-325MG 1 EACH TAB PO ONE (18:23)
[2022-03-20] MEDS ORDERED: LIDOCAINE 1% INJ 10MG/ML (5 ML VIAL-PF) SQ ONE (18:24)
--- NOTE | 2022-03-20 18:51 | ED ---
Skin/Abscess/FB HPI - General Chief complaint: Skin/Abscess/Foreign Body Stated complaint: Female Issues Time Seen by Provider: 03/20/22 17:51 Source: patient Mode of arrival: ambulatory Limitations: no limitations - History of Present Illness Initial comments: Patient is a 36-year-old female presenting with chief complaint of abscess to the left labia. Patient was seen here on 03/17 for the same complaint, she underwent incision and drainage but denied Wurd catheter at the time. Patient states that the abscess has been becoming increasingly painful, and now it is worse than at her initial presentation. She has been doing sitz bath which gave some relief, but once she is out of the bath the pain returns. She denies any fever, chills, nausea, vomiting, continued discharge from the area. - Related Data Home Medications Medication Instructions Recorded Confirmed Acetaminophen Tab [Tylenol Tab] 1,000 mg PO Q6H PRN 12/24/21 03/20/22 Previous Rx's Medication Instructions Recorded Clindamycin [Cleocin] 300 mg PO QID 7 Days #56 cap 03/17/22 HYDROcodone/APAP 5-325MG [[place] 5] 1 each PO Q6HR PRN #4 tab 03/17/22 ceFIXime [Cefixime] 400 mg PO DAILY 7 Days #7 capsule 03/17/22 HYDROcodone/APAP 10-325MG [[place] 1 tab PO Q6HR PRN 3 Days #12 tab 03/20/22 10-325] Allergies Allergy/AdvReac Type Severity Reaction Status Date / Time No Known Allergies Allergy Verified 03/20/22 18:38 Review of Systems ROS Statement: Those systems with pertinent positive or pertinent negative responses have been documented in the HPI. ROS Other: All systems not noted in ROS Statement are negative. Past Medical History Past Medical History: Hypertension Additional Past Medical History / Comment(s): tracheobronchitis, low back and cervical pain, 4-5 bulging discs in low back, frequent migraines. History of Any Multi-Drug Resistant Organisms: None Reported Past Surgical History: Orthopedic Surgery Additional Past Surgical History / Comment(s): R knee ACL repair x2 and 5 other arthroscopic surgeries on R knee. Past Anesthesia/Blood Transfusion Reactions: No Reported Reaction Past Psychological History: Anxiety, Bipolar, Depression, PTSD Smoking Status: Current every day smoker Past Alcohol Use History: Rare Past Drug Use History: Marijuana - Past Family History Mother Family Medical History: Cancer Additional Family Medical History / Comment(s): Mother had leiomyosarcoma. Father History Unknown: Yes General Exam Limitations: no limitations General appearance: alert, in no apparent distress Head exam: Present: atraumatic, normocephalic, normal inspection Eye exam: Present: normal appearance, EOMI. Absent: scleral icterus, periorbital swelling Neck exam: Present: normal inspection External exam: Present: erythema, swelling, other (Parthenon gland abscess noted on the left labia) Neurological exam: Present: alert, oriented X3, CN II-XII intact Psychiatric exam: Present: normal affect, normal mood Skin exam: Present: warm, dry, intact, normal color. Absent: rash Course Vital Signs 03/20/22 03/20/22 03/20/22 17:43 19:46 22:20 Temperature 98.6 F Pulse Rate 106 H 93 84 Respiratory 20 18 18 Rate Blood Pressure 165/100 160/103 O2 Sat by Pulse 100 98 100 Oximetry Medical Decision Making - Medical Decision Making Patient is a 36-year-old female presenting with chief complaint of abscess to the left labia. Patient had this drained on 03/17, however declined wards catheter at that time. Patient states that she did not get additional drainage once at home, she now admits to increased redness and swelling and pain. On examination there is significant redness and swelling, tenderness with light palpation. Patient was given pain medication and area was anesthetized with 1% lidocaine. Area was incised with an 11 blade and purulent discharge was expressed. Patient had difficulty tolerating this procedure. Attempted to insert wards catheter, however patient declined. Patient is currently on antibiotics and will continue that course. She is instructed to set up an appointment with Dr. Pardo as soon as possible. She is given a three-day supply of pain medication. Report back to ER if any new or worsening symptoms. Discussed return parameters and answered all questions. Patient conveyed verbal understanding and agreed to the plan. My attending is Dr. Zapata. Disposition Clinical Impression: Bartholin cyst Disposition: HOME SELF-CARE Condition: Good Instructions (If sedation given, give patient instructions): Bartholin Cyst (ED), Abscess Incision and Drainage (DC) Additional Instructions: Follow-up with PCP and [facility] [employer]. Report back to ER with any new or worsening symptoms. Utilize sitz bath's. Avoid sexual activity. Take Motrin and Tylenol as needed for pain control. Prescriptions: HYDROcodone/APAP 10-325MG [[place] 10-325] 1 tab PO Q6HR PRN 3 Days #12 tab PRN Reason: Pain Is patient prescribed a controlled substance at d/c from ED?: Yes When asked, does pt state using other controlled substances?: No If prescribed controlled substance>3 days was MAPS reviewed?: Prescribed <3 Days If opioid is for acute pain is fill amount 7 days or less?: Yes If Rx opioid, was Start Talking consent form obtained?: Yes Referrals: Noe Quiroz MD [Primary Care Provider] - 1-2 days Manuel Pardo MD [STAFF PHYSICIAN] - 1-2 days Time of Disposition: 22:00
[2022-03-20] MEDS ORDERED: HYDROmorphone 1 MG/ML 1 ML SYRINGE IM STA (20:35)
[2022-03-20] MEDS ORDERED: LORazepam 1 MG TAB PO STA (21:04)
[2022-03-20 22:19] VITALS: BP 160/103; PULSE 84; RESP 18
== END 2022-03-20 22:21 | disposition home or self-care (01) ==
LOC: EC 17:26
DX: N94.9 Unspecified condition associated with female genital organs and menstrual cycle (principal); N75.0 Cyst of Bartholin's gland; F17.200 Nicotine dependence, unspecified, uncomplicated; I10 Essential (primary) hypertension
CPT/HCPCS: 99283; 96372; 56420; J2001; J1170

== ENCOUNTER 2023-01-01 14:33 | Emergency (ER) | payer OTHER ==
[2023-01-01 14:39] VITALS: TEMP 98.3
[2023-01-01] MEDS ORDERED: NITROGLYCERIN SL TABS 0.4 MG TAB SUBLINGUAL STA (15:07)
[2023-01-01] MEDS ORDERED: LORazepam 2 MG/ML INJ IV STA ×2 (15:07→18:40)
[2023-01-01] MEDS ORDERED: NITROGLYCERIN OINT 1 INCH/GM PACKET TOPICAL STA (15:07)
[2023-01-01] MEDS ORDERED: ASPIRIN 81 MG PO STA (15:07)
--- NOTE | 2023-01-01 15:21 | ED ---
General Adult HPI - General Chief complaint: Chest Pain Stated complaint: chest pain and high blood pressure Time Seen by Provider: 01/01/23 14:45 Source: patient, RN notes reviewed, old records reviewed Mode of arrival: ambulatory Limitations: no limitations - History of Present Illness Initial comments: This is a 37-year-old female presents emergency Department complaining of chest heaviness since last evening. Patient states it does come and go a little but is been a pretty constant. Patient states she has a history of high blood pressure but she stopped taking her meds about a year ago. Patient states she smoked up until about a year ago as well. Patient denies any history of diabetes or high cholesterol. Patient states she has had no family history of any bony having a heart attack. Patient states the pain in her chest radiates down her left arm and occasionally over the right side of her chest per patient also has had shortness of breath when she has had the pain. Patient also states in the middle like she did wake up diaphoretic. Patient denies any illegal drug use. Patient denies any swelling to the calves or legs patient denies any calf tenderness. - Related Data Home Medications Medication Instructions Recorded Confirmed Aspirin EC [Ecotrin Low Dose] 162 mg PO ONCE PRN 01/01/23 01/01/23 Allergies Allergy/AdvReac Type Severity Reaction Status Date / Time No Known Allergies Allergy Verified 01/01/23 15:10 Review of Systems ROS Statement: Those systems with pertinent positive or pertinent negative responses have been documented in the HPI. ROS Other: All systems not noted in ROS Statement are negative. Past Medical History Past Medical History: Hypertension Additional Past Medical History / Comment(s): tracheobronchitis, low back and cervical pain, 4-5 bulging discs in low back, frequent migraines. History of Any Multi-Drug Resistant Organisms: None Reported Past Surgical History: Orthopedic Surgery Additional Past Surgical History / Comment(s): R knee ACL repair x2 and 5 other arthroscopic surgeries on R knee. Past Anesthesia/Blood Transfusion Reactions: No Reported Reaction Past Psychological History: Anxiety, Bipolar, Depression, PTSD Smoking Status: Current every day smoker Past Alcohol Use History: Rare Past Drug Use History: Marijuana - Past Family History Mother Family Medical History: Cancer Additional Family Medical History / Comment(s): Mother had leiomyosarcoma. Father History Unknown: Yes General Exam - General Exam Comments Initial Comments: GENERAL: Patient is well-developed and well-nourished. Patient is nontoxic and well- hydrated and is in mild distress. ENT: Neck is soft and supple. No significant lymphadenopathy is noted. Oropharynx is clear. Moist mucous membranes. Neck has full range of motion without eliciting any pain. EYES: The sclera were anicteric and conjunctiva were pink and moist. Extraocular movements were intact and pupils were equal round and reactive to light. Eyelids were unremarkable. PULMONARY: Unlabored respirations. Good breath sounds bilaterally. No audible rales rhonchi or wheezing was noted. CARDIOVASCULAR: There is a regular rate and rhythm without any murmurs gallops or rubs. ABDOMEN: Soft and nontender with normal bowel sounds. No palpable organomegaly was noted. There is no palpable pulsatile mass. SKIN: Skin is clear with no lesions or rashes and otherwise unremarkable. NEUROLOGIC: Patient is alert and oriented x3. Cranial nerves II through XII are grossly intact. Motor and sensory are also intact. Normal speech, volume and content. Symmetrical smile. MUSCULOSKELETAL: Normal extremities with adequate strength and full range of motion. No lower extremity swelling or edema. No calf tenderness. LYMPHATICS: No significant lymphadenopathy is noted PSYCHIATRIC: Normal psychiatric evaluation. Limitations: no limitations Course Vital Signs 01/01/23 01/01/23 01/01/23 14:36 14:58 15:00 Temperature 98.3 F Pulse Rate 88 74 79 Respiratory 20 16 18 Rate Blood Pressure 174/119 184/125 184/125 O2 Sat by Pulse 100 97 100 Oximetry 01/01/23 01/01/23 01/01/23 15:30 16:00 16:30 Temperature Pulse Rate 89 70 70 Respiratory 20 20 20 Rate Blood Pressure 193/118 166/127 150/119 O2 Sat by Pulse 99 100 100 Oximetry 01/01/23 01/01/23 01/01/23 16:38 16:40 18:30 Temperature Pulse Rate 77 Respiratory 16 Rate Blood Pressure 149/98 167/116 148/96 O2 Sat by Pulse 100 Oximetry Medical Decision Making - Medical Decision Making EKG shows sinus rhythm at 77 bpm MS interval 236 QRS is 93 QT interval 370 QTC is 418. Patient's EKG shows no ST segment elevation or depression. Was pt. sent in by a medical professional or institution (, PA, BLUE PRINT CONTROL CLERK, urgent care, hospital, or intermediate...) When possible be specific @ -No Did you speak to anyone other than the patient for history (EMS, parent, family, police, friend...)? What history was obtained from this source @ -No Did you review nursing and triage notes (agree or disagree)? Why? @ -I reviewed and agree with nursing and triage notes Were old charts reviewed (outside hosp., previous admission, EMS record, old EKG, old radiological studies, urgent care reports/EKG's, intermediate records)? Report findings @ -I reviewed prior charts in prior on this patient Differential Diagnosis (chest pain, altered mental status, abdominal pain women, abdominal pain men, vaginal bleeding, weakness, fever, dyspnea, syncope, headache, dizziness, GI bleed, back pain, seizure, CVA, palpatations, mental health, musculoskeletal)? @ -Differential Chest Pain: Stable Angina, Unstable Angina, STEMI, NSTEMI Aortic Dissection, Pneumothorax, Musculoskeletal, Esophageal Spasm GERD, Cholecystitis, Pancreatitis, Zoster, this is not meant to be an all-inclusive list. EKG interpreted by me (3pts min.). @ -As above X-rays interpreted by me (1pt min.). @ -Transient or rebound myself shows no acute abnormality. CT interpreted by me (1pt min.). @ -Patient unable blood pressures on each arm so a CAT scan of the aorta was done it was interpreted by myself I no acute aortic dissection or other abnormality. U/S interpreted by me (1pt. min.). @ -None done What testing was considered but not performed or refused? (CT, X-rays, U/S, labs)? Why? @ -None What meds were considered but not given or refused? Why? @ -None Did you discuss the management of the patient with other professionals (professionals i.e. , PA, BLUE PRINT CONTROL CLERK, lab, RT, psych nurse, social media campaign manager, software engineering analyst, teacher, collections officer, family independence case manager)? Give summary @ -No Was smoking cessation discussed for >3mins.? @ -No Was critical care preformed (if so, how long)? @ -No Were there social determinants of health that impacted care today? How? (Homelessness, low income, unemployed, alcoholism, drug addiction, transportation, low edu. Level, literacy, decrease access to med. care, fci, rehab)? @ -Use Was there de-escalation of care discussed even if they declined (Discuss DNR or withdrawal of care, Hospice)? DNR status @ -No What co-morbidities impacted this encounter? (DM, HTN, Smoking, COPD, CAD, Cancer, CVA, ARF, Chemo, Hep., AIDS, mental health diagnosis, sleep apnea, morbid obesity)? @ -She has previous history of drug abuse Was patient admitted / discharged? Hospital course, mention meds given and route, prescriptions, significant lab abnormalities, going to OR and other pertinent info. @ -Patient had a drug screen showed methamphetamine abuse she denied it was upset that I suggested even though I told it was in her urine I was just giving her the results of her test. I told the patient and we are getting get her some Ativan to relax and hydralazine to bring her pressure down. She then eloped with an IV in and did not get her Ativan or hydralazine. I told her that I was probably going to have to admit her but she left any health Undiagnosed new problem with uncertain prognosis? @ -No Drug Therapy requiring intensive monitoring for toxicity (Heparin, Nitro, Insulin, Cardizem)? @ -No Were any procedures done? @ -No Diagnosis/symptom? @ -Chest heaviness Acute, or Chronic, or Acute on Chronic? @ -Acute Uncomplicated (without systemic symptoms) or Complicated (systemic symptoms)? @ -Complicated Side effects of treatment? @ -No Exacerbation, Progression, or Severe Exacerbation? @ -No Poses a threat to life or bodily function? How? (Chest pain, [place], [place], pneumonia, PE, COPD, DKA, ARF, appy, cholecystitis, CVA, Diverticulitis, Homicidal, Suicidal, threat to staff... and all critical care pts) @ -Yes this could lead to poor perfusion and end organ dysfunction Diagnosis/symptom? @ -Hypertensive emergency Acute, or Chronic, or Acute on Chronic? @ -Acute Uncomplicated (without systemic symptoms) or Complicated (systemic symptoms)? @ -Complicated Side effects of treatment? @ -none Exacerbation, Progression, or Severe Exacerbation] @ -no Poses a threat to life or bodily function? @ -Yes this could lead to heart attack and then eventually end organ dysfunction Diagnosis/symptom? @ -Methamphetamine abuse Acute, or Chronic, or Acute on Chronic? @ -Acute Uncomplicated (without systemic symptoms) or Complicated (systemic symptoms)? @ -Complicated Side effects of treatment? @ -none Exacerbation, Progression, or Severe Exacerbation] @ -no Poses a threat to life or bodily function? @ -no - Lab Data Result diagrams: 01/01/23 15:19 01/01/23 15:19 Lab Results 01/01/23 01/01/23 01/01/23 Range/Units 15:19 15:19 15:19 WBC 6.8 (3.8-10.6) k/uL RBC 4.29 (3.80-5.40) m/uL Hgb 12.5 (11.4-16.0) gm/dL Hct 37.7 (34.0-46.0) % MCV 87.9 (80.0-100.0) fL MCH 29.1 (25.0-35.0) pg MCHC 33.1 (31.0-37.0) g/dL RDW 14.3 (11.5-15.5) % Plt Count 316 (150-450) k/uL MPV 7.3 Neutrophils % 60 % Lymphocytes % 30 % Monocytes % 5 % Eosinophils % 3 % Basophils % 1 % Neutrophils # 4.1 (1.3-7.7) k/uL Lymphocytes # 2.0 (1.0-4.8) k/uL Monocytes # 0.4 (0-1.0) k/uL Eosinophils # 0.2 (0-0.7) k/uL Basophils # 0.1 (0-0.2) k/uL PT 10.0 (9.0-12.0) sec INR 0.9 (<1.2) APTT 25.1 (22.0-30.0) sec Sodium 136 L (137-145) mmol/L Potassium 4.0 (3.5-5.1) mmol/L Chloride 100 (98-107) mmol/L Carbon Dioxide 27 (22-30) mmol/L Anion Gap 9 mmol/L BUN 12 (7-17) mg/dL Creatinine 0.77 (0.52-1.04) mg/dL Est GFR (CKD-EPI)AfAm >90 (>60 ml/min/1.73 sqM) Est GFR (CKD-EPI)NonAf >90 (>60 ml/min/1.73 sqM) Glucose 70 L (74-99) mg/dL POC Glucose (mg/dL) (70-110) mg/dL POC Glu Sap Hana Architect ID Calcium 9.1 (8.4-10.2) mg/dL Magnesium 2.1 (1.6-2.3) mg/dL Total Bilirubin 0.4 (0.2-1.3) mg/dL AST 20 (14-36) U/L ALT 16 (4-34) U/L Alkaline Phosphatase 82 (38-126) U/L Troponin I (0.000-0.034) ng/mL Total Protein 7.5 (6.3-8.2) g/dL Albumin 4.5 (3.5-5.0) g/dL Urine Opiates Screen (NotDetected) Ur Oxycodone Screen (NotDetected) Urine Methadone Screen (NotDetected) Ur Propoxyphene Screen (NotDetected) Ur Barbiturates Screen (NotDetected) U Tricyclic Antidepress (NotDetected) Ur Phencyclidine Scrn (NotDetected) Ur Amphetamines Screen (NotDetected) U Methamphetamines Scrn (NotDetected) U Benzodiazepines Scrn (NotDetected) Urine Cocaine Screen (NotDetected) U Marijuana (THC) Screen (NotDetected) 01/01/23 01/01/23 01/01/23 Range/Units 15:19 15:20 17:40 WBC (3.8-10.6) k/uL RBC (3.80-5.40) m/uL Hgb (11.4-16.0) gm/dL Hct (34.0-46.0) % MCV (80.0-100.0) fL MCH (25.0-35.0) pg MCHC (31.0-37.0) g/dL RDW (11.5-15.5) % Plt Count (150-450) k/uL MPV Neutrophils % % Lymphocytes % % Monocytes % % Eosinophils % % Basophils % % Neutrophils # (1.3-7.7) k/uL Lymphocytes # (1.0-4.8) k/uL Monocytes # (0-1.0) k/uL Eosinophils # (0-0.7) k/uL Basophils # (0-0.2) k/uL PT (9.0-12.0) sec INR (<1.2) APTT (22.0-30.0) sec Sodium (137-145) mmol/L Potassium (3.5-5.1) mmol/L Chloride (98-107) mmol/L Carbon Dioxide (22-30) mmol/L Anion Gap mmol/L BUN (7-17) mg/dL Creatinine (0.52-1.04) mg/dL Est GFR (CKD-EPI)AfAm (>60 ml/min/1.73 sqM) Est GFR (CKD-EPI)NonAf (>60 ml/min/1.73 sqM) Glucose (74-99) mg/dL POC Glucose (mg/dL) 46 L (70-110) mg/dL POC Glu Sap Hana Architect ID Huong Marley Calcium (8.4-10.2) mg/dL Magnesium (1.6-2.3) mg/dL Total Bilirubin (0.2-1.3) mg/dL AST (14-36) U/L ALT (4-34) U/L Alkaline Phosphatase (38-126) U/L Troponin I <0.012 (0.000-0.034) ng/mL Total Protein (6.3-8.2) g/dL Albumin (3.5-5.0) g/dL Urine Opiates Screen Detected H (NotDetected) Ur Oxycodone Screen Detected H (NotDetected) Urine Methadone Screen Not Detected (NotDetected) Ur Propoxyphene Screen Not Detected (NotDetected) Ur Barbiturates Screen Not Detected (NotDetected) U Tricyclic Antidepress Not Detected (NotDetected) Ur Phencyclidine Scrn Not Detected (NotDetected) Ur Amphetamines Screen Detected H (NotDetected) U Methamphetamines Scrn Detected H (NotDetected) U Benzodiazepines Scrn Not Detected (NotDetected) Urine Cocaine Screen Not Detected (NotDetected) U Marijuana (THC) Screen Detected H (NotDetected) 01/01/23 Range/Units 17:41 WBC (3.8-10.6) k/uL RBC (3.80-5.40) m/uL Hgb (11.4-16.0) gm/dL Hct (34.0-46.0) % MCV (80.0-100.0) fL MCH (25.0-35.0) pg MCHC (31.0-37.0) g/dL RDW (11.5-15.5) % Plt Count (150-450) k/uL MPV Neutrophils % % Lymphocytes % % Monocytes % % Eosinophils % % Basophils % % Neutrophils # (1.3-7.7) k/uL Lymphocytes # (1.0-4.8) k/uL Monocytes # (0-1.0) k/uL Eosinophils # (0-0.7) k/uL Basophils # (0-0.2) k/uL PT (9.0-12.0) sec INR (<1.2) APTT (22.0-30.0) sec Sodium (137-145) mmol/L Potassium (3.5-5.1) mmol/L Chloride (98-107) mmol/L Carbon Dioxide (22-30) mmol/L Anion Gap mmol/L BUN (7-17) mg/dL Creatinine (0.52-1.04) mg/dL Est GFR (CKD-EPI)AfAm (>60 ml/min/1.73 sqM) Est GFR (CKD-EPI)NonAf (>60 ml/min/1.73 sqM) Glucose (74-99) mg/dL POC Glucose (mg/dL) 62 L (70-110) mg/dL POC Glu Sap Hana Architect ID Huong Marley Calcium (8.4-10.2) mg/dL Magnesium (1.6-2.3) mg/dL Total Bilirubin (0.2-1.3) mg/dL AST (14-36) U/L ALT (4-34) U/L Alkaline Phosphatase (38-126) U/L Troponin I (0.000-0.034) ng/mL Total Protein (6.3-8.2) g/dL Albumin (3.5-5.0) g/dL Urine Opiates Screen (NotDetected) Ur Oxycodone Screen (NotDetected) Urine Methadone Screen (NotDetected) Ur Propoxyphene Screen (NotDetected) Ur Barbiturates Screen (NotDetected) U Tricyclic Antidepress (NotDetected) Ur Phencyclidine Scrn (NotDetected) Ur Amphetamines Screen (NotDetected) U Methamphetamines Scrn (NotDetected) U Benzodiazepines Scrn (NotDetected) Urine Cocaine Screen (NotDetected) U Marijuana (THC) Screen (NotDetected) Disposition Clinical Impression: Methamphetamine abuse, Chest heaviness, Hypertensive crisis Disposition: Left Against Medical Advice Is patient prescribed a controlled substance at d/c from ED?: No Referrals: None,Stated [Primary Care Provider] - 1-2 days Time of Disposition: 19:21
[2023-01-01 15:38] LABS: Basophils # (A) 0.1 k/uL (0-0.2); Basophils % (A) 1 %; Eosinophils # (A) 0.2 k/uL (0-0.7); Eosinophils % (A) 3 %; HCT 37.7 % (34.0-46.0); HGB 12.5 gm/dL (11.4-16.0); Lymphocytes % (A) 30 %; MCH 29.1 pg (25.0-35.0); MCHC 33.1 g/dL (31.0-37.0); MCV 87.9 fL (80.0-100.0); Mean Platelet Volume 7.3; Monocytes # (A) 0.4 k/uL (0-1.0); Monocytes % (A) 5 %; Neutrophils # (A) 4.1 k/uL (1.3-7.7); Neutrophils % (A) 60 %; Platelet Count 316 k/uL (150-450); RBC 4.29 m/uL (3.80-5.40); RDW 14.3 % (11.5-15.5); WBC 6.8 k/uL (3.8-10.6)
[2023-01-01 15:43] LABS: INR 0.9 (<1.2); Partial Thromboplastin Time 25.1 sec (22.0-30.0)
--- NOTE | 2023-01-01 15:49 | XR ---
EXAMINATION TYPE: XR chest 2V DATE OF EXAM: 01/01/2023 COMPARISON: 07/31/2021 HISTORY: Chest pain, hypertension, lightheaded TECHNIQUE: Frontal and lateral views of the chest are obtained. FINDINGS: The heart size is normal. The cardiac mediastinal silhouette and pulmonary vasculature are within nor mal limits. There is no focal consolidation, significant pleural effusion, or pneumothorax. There is metallic jewelry projecting over the bilateral nipples. IMPRESSION: No acute cardiopulmonary process.
[2023-01-01 16:16] LABS: ALT 16 U/L (4-34); AST 20 U/L (14-36); African American GFR (CKD) >90 (>60 ml/min/1.73 sqM); Albumin 4.5 g/dL (3.5-5.0); Alkaline Phosphatase 82 U/L (38-126); Anion Gap 9 mmol/L; Blood Urea Nitrogen 12 mg/dL (7-17); Calcium 9.1 mg/dL (8.4-10.2); Carbon Dioxide 27 mmol/L (22-30); Chloride 100 mmol/L (98-107); Glucose 70 mg/dL (74-99); Magnesium 2.1 mg/dL (1.6-2.3); Non-African American GFR(CKD) >90 (>60 ml/min/1.73 sqM); Sodium 136 mmol/L (137-145); Total Bilirubin 0.4 mg/dL (0.2-1.3); Total Protein 7.5 g/dL (6.3-8.2)
[2023-01-01 17:42] LABS: Glucose,Whole Blood 46 mg/dL (70-110)
[2023-01-01 17:42] LABS: Glucose,Whole Blood 62 mg/dL (70-110)
[2023-01-01] MEDS ORDERED: DEXTROSE 50% SYRINGE 50 ML IVP STA (17:43)
--- NOTE | 2023-01-01 17:57 | CT ---
EXAMINATION TYPE: CT angio thor/abd pel aorta DATE OF EXAM: 01/01/2023 COMPARISON: CT abdomen and pelvis 11/04/2017 HISTORY: chest pain, high BP CT DLP: 1229.3 mGycm. Automated Exposure Control for Dose Reduction was Utilized. CONTRAST: CTA scan of the thorax, abdomen and pelvis is performed without and with IV Contrast, patient injecte d with 100 mL of Isovue 370. Dissection protocol with 3-D reconstructed images created on an [employer] ent workstation and reviewed. FINDINGS: VASCULAR: Satisfactory enhancement of the pulmonary arteries. Satisfactory enhancement of the aorta w ithout aneurysm or dissection. Patent celiac artery and SMA without significant stenosis. Patent bila teral single renal arteries without significant stenosis. Patent MANOJ. Patent iliac arteries without s ignificant plaque or stenosis or aneurysm. Patent femoral arteries and the bilateral groin region ext ending into superficial and deep femoral arteries without focal plaque or stenosis. LUNGS: The lungs are grossly clear, there is no concerning parenchymal mass or nodule identified. T here is no pleural effusion or pneumothorax seen. The tracheobronchial tree is patent. MEDIASTINUM: There are no greater than 1 cm hilar or mediastinal lymph nodes. No pericardial effusi on is seen. LIVER/GB: No significant abnormality is appreciated. PANCREAS: No significant abnormality is seen. SPLEEN: No significant abnormality is seen. ADRENALS: No significant abnormality is seen. KIDNEYS: No significant abnormality is seen. BOWEL: Suboptimal evaluation without enteric contrast and patient having little fat. Mild to moderate colonic fecal prominence. GENITAL ORGANS: Anteverted uterus. Small amount of free fluid in the pelvis axial image 276. LYMPH NODES: No greater than 1cm abdominal or pelvic lymph nodes are appreciated. OSSEOUS STRUCTURES: No significant abnormality is seen. OTHER: No significant additional abnormality is seen. IMPRESSION: No CT evidence for aortic aneurysm or dissection. Mild to moderate colonic fecal prominen ce. No bowel obstruction. Small amount of free fluid in the pelvis is nonspecific finding. No suspici ous acute findings in the thorax.
[2023-01-01 17:58] LABS: Cocaine Screen,Urine Not Detected (NotDetected); Phencyclidine Screen,Urine Not Detected (NotDetected); Urn Cannabinoid Scrn Detected (NotDetected)
[2023-01-01 17:59] LABS: Amphetamine Screen,Urine Detected (NotDetected); Barbiturate Screen,Urine Not Detected (NotDetected); Benzodiazepines Screen,Urine Not Detected (NotDetected); Methadone Screen, Urine Not Detected (NotDetected); Opiate Screen,Urine Detected (NotDetected); Oxycodone Screen, Urine Detected (NotDetected); Tricyclic Antidepressant,Urine Not Detected (NotDetected)
[2023-01-01] MEDS ORDERED: hydrALAZINE HCL 20 MG/ML 1 ML VIAL IVP STA (18:40)
[2023-01-01 19:12] VITALS: BP 148/96; PULSE 77; RESP 16
== END 2023-01-01 19:00 | disposition left against medical advice (07) ==
LOC: EC 14:33
DX: R07.89 Other chest pain (principal); F15.10 Other stimulant abuse, uncomplicated; I16.9 Hypertensive crisis, unspecified; I10 Essential (primary) hypertension; F41.9 Anxiety disorder, unspecified; F31.9 Bipolar disorder, unspecified; F17.200 Nicotine dependence, unspecified, uncomplicated; F12.90 Cannabis use, unspecified, uncomplicated; Z79.82 Long term (current) use of aspirin; Z53.29 Procedure and treatment not carried out because of patient's decision for other reasons
CPT/HCPCS: 36415; 93005; 80053; 83735; 84484; 85025; 85610; 85730; 80306; 71046; 71275; 74174; 99285; 96374; 96375; J2060; Q9967

== ENCOUNTER 2023-10-06 13:25 | Emergency (ER) | payer OTHER ==
[2023-10-06] MEDS ORDERED: cefTRIAXone 1,000 MG VIAL (IM USE) IM STA (14:10)
[2023-10-06] MEDS ORDERED: ACET/COD 300 MG/30 MG STARTER PACK 6 TAB BTL PO STA (14:10)
--- NOTE | 2023-10-06 14:11 | ED ---
ENT HPI - General Chief complaint: Dental/Oral Stated complaint: L jaw pain Time Seen by Provider: 10/06/23 13:40 Source: patient, RN notes reviewed Mode of arrival: ambulatory Limitations: no limitations - History of Present Illness Initial comments: 38-year-old female presents emergency department with chief complaint of dental pain, swelling left side of her jaw. Patient states started over the last day or 2. She was seen in urgent care yesterday was given Augmentin. She states that she was advised to come emerged primary if she did not have improvement by morning. Patient states she does not feel its worst. Patient denies any difficulty swallowing. States that she has poor dentition. She has no pain control at home. Patient offers no other complaints. - Related Data Home Medications Medication Instructions Recorded Confirmed Aspirin EC [Ecotrin Low Dose] 162 mg PO ONCE PRN 01/01/23 01/01/23 Previous Rx's Medication Instructions Recorded Ibuprofen [Motrin] 600 mg PO Q8HR PRN #20 tab 10/06/23 Allergies Allergy/AdvReac Type Severity Reaction Status Date / Time No Known Allergies Allergy Verified 01/01/23 15:10 Review of Systems ROS Statement: Those systems with pertinent positive or pertinent negative responses have been documented in the HPI. ROS Other: All systems not noted in ROS Statement are negative. Past Medical History Past Medical History: Hypertension Additional Past Medical History / Comment(s): tracheobronchitis, low back and cervical pain, 4-5 bulging discs in low back, frequent migraines. History of Any Multi-Drug Resistant Organisms: None Reported Past Surgical History: Orthopedic Surgery Additional Past Surgical History / Comment(s): R knee ACL repair x2 and 5 other arthroscopic surgeries on R knee. Past Anesthesia/Blood Transfusion Reactions: No Reported Reaction Past Psychological History: Anxiety, Bipolar, Depression, PTSD Smoking Status: Vaper Past Alcohol Use History: Rare Past Drug Use History: Marijuana - Past Family History Mother Family Medical History: Cancer Additional Family Medical History / Comment(s): Mother had leiomyosarcoma. Father History Unknown: Yes General Exam Limitations: no limitations General appearance: alert, in no apparent distress Head exam: Present: atraumatic, normocephalic, normal inspection Eye exam: Present: normal appearance, PERRL, EOMI. Absent: scleral icterus, conjunctival injection, periorbital swelling ENT exam: Present: mucous membranes moist. Absent: normal oropharynx (Edentulous, dental swelling) Neck exam: Present: normal inspection, full ROM Respiratory exam: Present: normal lung sounds bilaterally. Absent: respiratory distress, wheezes, rales, rhonchi, stridor Cardiovascular Exam: Present: regular rate, normal rhythm, normal heart sounds. Absent: systolic murmur, diastolic murmur, rubs, gallop, clicks Course Vital Signs 10/06/23 13:26 Temperature 98.6 F Pulse Rate 85 Respiratory 18 Rate Blood Pressure 174/90 O2 Sat by Pulse 99 Oximetry Medical Decision Making - Medical Decision Making Was pt. sent in by a medical professional or institution (, PA, SEISMOGRAPH CHIEF, urgent care, hospital, or detention...) When possible be specific @ -No Did you speak to anyone other than the patient for history (EMS, parent, family, police, friend...)? What history was obtained from this source @ -No Did you review nursing and triage notes (agree or disagree)? Why? @ -I reviewed and agree with nursing and triage notes Were old charts reviewed (outside hosp., previous admission, EMS record, old EKG, old radiological studies, urgent care reports/EKG's, detention records)? Report findings @ -No old charts were reviewed Differential Diagnosis (chest pain, altered mental status, abdominal pain women, abdominal pain men, vaginal bleeding, weakness, fever, dyspnea, syncope, headache, dizziness, GI bleed, back pain, seizure, CVA, palpatations, mental health, musculoskeletal)? @ -Dental pain, dental abscess EKG interpreted by me (3pts min.). @ -None X-rays interpreted by me (1pt min.). @ -None done CT interpreted by me (1pt min.). @ -None done U/S interpreted by me (1pt. min.). @ -None done What testing was considered but not performed or refused? (CT, X-rays, U/S, labs)? Why? @ -None What meds were considered but not given or refused? Why? @ -None Did you discuss the management of the patient with other professionals (professionals i.e. , PHUONG, SEISMOGRAPH CHIEF, lab, RT, psych nurse, neonatal social worker, nuclear physics professor, teacher, stream control officer, nurse case manager)? Give summary @ -No Was smoking cessation discussed for >3mins.? @ -No Was critical care preformed (if so, how long)? @ -No Were there social determinants of health that impacted care today? How? (Homele ssness, low income, unemployed, alcoholism, drug addiction, transportation, low edu. Level, literacy, decrease access to med. care, custodial, rehab)? @ -No Was there de-escalation of care discussed even if they declined (Discuss DNR or withdrawal of care, Hospice)? DNR status @ -No What co-morbidities impacted this encounter? (DM, HTN, Smoking, COPD, CAD, Cancer, CVA, ARF, Chemo, Hep., AIDS, mental health diagnosis, sleep apnea, morbid obesity)? @ -None Was patient admitted / discharged? Hospital course, mention meds given and route, prescriptions, significant lab abnormalities, going to OR and other pertinent info. @ -Discharge patient is currently on Augmentin we will continue Augmentin analgesics provided. Patient has only been on Augmentin for less than 24 hours. We did discuss follow-up with dentist within the next week and return Preiser discussed. Undiagnosed new problem with uncertain prognosis? @ -No Drug Therapy requiring intensive monitoring for toxicity (Heparin, Nitro, Insul in, Cardizem)? @ -No Were any procedures done? @ -No Diagnosis/symptom? @ -Dental abscess Acute, or Chronic, or Acute on Chronic? @ -Acute Uncomplicated (without systemic symptoms) or Complicated (systemic symptoms)? @ -Uncomplicated Side effects of treatment? @ -No Exacerbation, Progression, or Severe Exacerbation? @ -No Poses a threat to life or bodily function? How? (Chest pain, [place], [place], pneumonia, PE, COPD, DKA, ARF, appy, cholecystitis, CVA, Diverticulitis, Homicidal, Suicidal, threat to staff... and all critical care pts) @ -No Disposition Clinical Impression: Dental abscess Disposition: HOME SELF-CARE Condition: Stable Instructions (If sedation given, give patient instructions): Dental Abscess (ED) Additional Instructions: Please return to the Emergency Department if symptoms worsen or any other concerns. Prescriptions: Ibuprofen [Motrin] 600 mg PO Q8HR PRN #20 tab PRN Reason: Pain Is patient prescribed a controlled substance at d/c from ED?: No Referrals: None,Stated [Primary Care Provider] - 1-2 days Time of Disposition: 14:11
[2023-10-06 15:30] VITALS: BP 155/98; PULSE 84; RESP 16; TEMP 98.7
== END 2023-10-06 15:41 | disposition home or self-care (01) ==
LOC: EC 13:25
DX: K04.7 Periapical abscess without sinus (principal); I10 Essential (primary) hypertension; F17.290 Nicotine dependence, other tobacco product, uncomplicated; F12.90 Cannabis use, unspecified, uncomplicated; Z79.82 Long term (current) use of aspirin
CPT/HCPCS: 99283; 96372; J0696